=== PATIENT | male | born 1960 | race Caucasian/White ===

== ENCOUNTER 2020-03-08 06:55 | Outpatient (NON) | payer OTHER, SELFPAY ==
[2020-03-09 00:37] LABS: SARS-CoV-2 RNA PCR Negative
== END 2020-03-08 06:56 ==
PROVIDERS: PCP Emergency Medicine; Visit Provider Emergency Medicine
DX: R68.89 Other general symptoms and signs (principal); Z20.828 Contact with and (suspected) exposure to other viral communicable diseases
CPT/HCPCS: 87635; C9803; U0003

== ENCOUNTER 2023-11-20 16:02 | Inpatient (IN) | payer OTHER, SELFPAY ==
[2023-11-20] VITALS (11 sets, daily range): BP systolic 88–130; BP diastolic 53–96; PULSE 77–93; RESP 15–27; TEMP 36.3–36.5; O2SAT 96–100; BMI 26.4
--- NOTE | ~2023-11-20 | CT_ITS ---
EXAMINATION: CT abdomen pelvis wo con DATE: 11/20/2023 17:53 INDICATION: Abdominal pain TECHNIQUE: Computed tomography (CT) of the abdomen and pelvis was performed without intravenous contr ast. Automated exposure control and iterative reconstruction technique were employed. The dose-length product was 870.52 mGy-cm. COMPARISON: None FINDINGS: Moderate emphysema and mild atelectasis in the visualized lower lungs. Heart size is normal. Atherosc lerotic coronary artery calcification. No pericardial or pleural effusion. Nasogastric tube tip in pr oximal side port in the body the stomach. Small sliding-type hiatal hernia. 2.3 cm cyst at the dome o f the liver. Single hepatic calcific location and multiple splenic calcific lesions consistent with o ld granulomatous disease. Gallbladder, pancreas and bilateral adrenal glands are normal. Status post prostatectomy and cystectomy with ileal conduit formation extending to the right abdomen slightly cep halad to the umbilicus. There is fluid in the ileal conduit as well as mild bilateral hydroureterone phrosis. Deep to the umbilicus is a small bowel anastomosis likely representing the ileal conduit delmy vest site. There are air-fluid levels scattered throughout the small bowel without sonia dilation or discrete transition point to suggest obstruction. There is some wall thickening along the sigmoid: Co nsistent with colitis. Moderate amount of ascites scattered throughout the abdomen and pelvis. There is stranding throughout the greater omentum without definitive nodularity. No abscess or free intrape ritoneal gas. There is calcified atherosclerosis of the aorta and many of the other arteries. No path ologically enlarged abdominal or pelvic lymphadenopathy. Moderate lumbar and lower thoracic spondylos is. Chronic superior endplate compression fracture at T12. IMPRESSION: 1. Moderate amount of ascites scattered throughout the abdomen and pelvis with nonspecific stranding at the greater omentum without discrete nodularity. Recommend diagnostic paracentesis. 2. Postoperative change of prior prostatectomy, cystectomy and right abdominal ileocolic conduit form ation with associated mild bilateral hydroureteronephrosis. 3. Wall thickening at the sigmoid colon which could be related to colitis either infectious, inflamma tory or ischemic in etiology or other generalized edema forming state. 4. Moderate emphysema at the bilateral lung bases. Reviewed, dictated and finalized at location A. IMPRESSION: 1. Moderate amount of ascites scattered throughout the abdomen and pelvis with nonspecific stranding at the greater omentum without discrete nodularity. Recom mend diagnostic paracentesis. 2. Postoperative change of prior prostatectomy, cystectomy and right abdominal ileocolic conduit formation with associated mild bilateral hydroureteronephrosi s. 3. Wall thickening at the sigmoid colon which could be related to colitis eithe r infectious, inflammatory or ischemic in etiology or other generalized edema f orming state. 4. Moderate emphysema at the bilateral lung bases.
--- NOTE | ~2023-11-20 | XR_ITS ---
EXAMINATION: XR abdomen gastric tube insert DATE: 11/20/2023 16:39 INDICATION: Nasogastric tube placement TECHNIQUE: A supine view of the abdomen and lower chest was obtained for evaluation of feeding tube placement. COMPARISON: None. FINDINGS: Nasogastric tube tip in proximal side port in the body the stomach. No dilated gas-filled loops of fidel wel to suggest obstruction. No dilated loops of gas-filled bowel in the visualized upper abdomen. Aye ear discoid atelectasis at the bilateral lung bases. Heart size is normal. IMPRESSION: 1. Nasogastric tube in the stomach. Reviewed, dictated and finalized at location A.
--- NOTE | ~2023-11-20 | US_ITS ---
EXAMINATION: US paracentesis abd w/image DATE: 11/21/2023 09:52 INDICATION: Ascites. TECHNIQUE: The procedure and its risks, benefits, and alternatives were discussed with the patient. P otential risks discussed included bleeding and infection. The skin was prepped and draped in sterile fashion. 1% lidocaine was used for local anesthesia. Under ultrasound guidance, a 5 Fr catheter with trochar was advanced into the ascites in the left lower quadrant. Fluid was aspirated. The catheter w as removed, and a dressing was applied. There were no immediate complications. FINDINGS: Ultrasound images demonstrate ascites and the catheter within the fluid. Septations are noted in the fluid. IMPRESSION: 1. Successful ultrasound-guided paracentesis yielding 550 mL of yellow fluid. Reviewed, dictated and finalized at location A.
--- NOTE | 2023-11-20 16:15 | ECG_ITS ---
Test Date: 2023-11-20 16:15:00 Measurements Intervals [place] Rate: 81 P: 74 NC: 153 QRS: 72 QRSD: 89 T: 71 QT: 379 QTc: 441 Interpretive Statements SINUS RHYTHM NORMAL ECG No previous ECG available for comparison Electronically Signed On 11-21-2023 15:06:05 CDT by Javon Moreno M.D.
[2023-11-20] MEDS: PANTOPRAZOLE SODIUM IV 40 MG VIAL IV PUSH ×2 (16:24→22:11)
[2023-11-20] MEDS: ONDANSETRON INJ 4 MG/2 ML VIAL IV PUSH (16:24)
[2023-11-20] MEDS: SODIUM CHLORIDE 0.9% IV 1,000 ML 999 ML IV CONT (16:25)
[2023-11-20 16:38] LABS: Hematocrit 48.4 % (42.0-52.0); Hemoglobin 16.6 g/dL (14.0-18.0); Mean Corpuscular HGB Conc 34.3 g/dl (32-36); Mean Corpuscular Hemoglobin 28.6 pg (26-34); Mean Corpuscular Volume 83.4 fl (80-100); Mean Platelet Volume 12.2 fl (7.4-10.4); Platelet Count Result 332 k/mm3 (150-375); Red Cell Distribution Width 14.2 % (11.5-14.5); White Blood Count 25.6 K/mm3 (4.5-10.0)
--- NOTE | 2023-11-20 16:48 | ED.NAVMDI ---
HPI - Nausea/Vomiting/Diarrhea General Chief complaint: Nausea/Vomiting/Diarrhea Stated complaint: emesis with bleeding Time Seen by Provider: 11/20/23 16:11 History of Present Illness HPI Narrative: Patient is a 62-year-old male who presents ER with vomiting and loose stools. Patient is unsure how long it has been going on but reports vomiting today that may have had blood in it. He was recently seen at [facility] for an unknown issue, he believes it was dehydration and when he is discharged he was given Flexeril and Augmentin. Denies fevers or chills. No abdominal pain at this time. Patient does have dry blood around the mouth. Related Data Allergies Allergy/AdvReac Type Severity Reaction Status Date / Time No Known Allergies Allergy Uncoded 03/20/19 08:01 Review of Systems Review of Systems: All systems reviewed & are unremarkable except as noted in HPI and below Constitutional: Constitutional: Reports no additional constitutional complaints ENT: Reports system reviewed and no additional complaints, except as documented Cardiovascular: Cardiovascular: Reports no additional cardiovascular complaints Respiratory: Respiratory: Reports no additional respiratory complaints Gastrointestinal: Gastrointestinal: Denies abdominal pain, Denies diarrhea, Reports nausea and Reports vomiting Genitourinary: Genitourinary: Reports no additional male genitourinary complaints PMFSH Past Medical History Medical History (Updated 11/20/23 @ 18:56 by Ezekiel Baez MD) Bladder cancer COPD (chronic obstructive pulmonary disease) Hepatitis C Surgical History Surgical History (Updated 11/20/23 @ 17:24 by Ezekiel Baez MD) History of total cystectomy History of urostomy Family History Family History (Updated 02/12/19 @ 11:26 by DOCTOR UNKNOWN) Sibling Family history of malignant neoplasm Other Diabetes mellitus Family history of cardiovascular disease Social History Social History Smoking status: Current every day smoker Alcohol intake: never Exam Narrative: GENERAL: chronically ill-appearing, well-nourished, and in no acute distress. HEAD: Normocephalic, atraumatic. ENT: dry mucous membranes, blood dried to the cheeks bilaterally. NECK: Supple. CHEST: Clear to auscultation. No respiratory distress. HEART: Regular rate and rhythm. Normal peripheral pulses. ABDOMEN: Soft, nontender, nondistended, Hemoccult-positive stool. EXTREMITIES: Normal range of motion. No edema. SKIN: Warm, dry, no rash. NEURO: Alert and oriented x3. PSYCH: Normal mood and affect. Course Course Emergency Course: Patient with signs of sepsis. Patient received 30 milliliter/kilogram bolus. He has had adequate response with improvement of blood pressure. Nephrology consulted in regards to hyperkalemia and acute kidney injury. They have asked that some random urine studies be added on. Furthermore I have treated the patient's hyperkalemia with calcium gluconate, insulin, D50, and IV fluid. Patient be started on Zosyn for possible colitis seen on CT scan. I have also placed orders for diagnostic paracentesis since patient has significant ascites. Patient accepted by the hospitalist service. Vital Signs Vital signs: Vital Signs Temperature 97.7 F 11/20/23 16:15 Pulse Rate 82 11/20/23 16:15 Respiratory Rate 18 11/20/23 16:15 Blood Pressure 97/75 L 11/20/23 16:15 Pulse Oximetry 97 11/20/23 16:15 Oxygen Delivery Room Air 11/20/23 16:15 Temperature 97.7 F 11/20/23 16:15 Pulse Rate 82 11/20/23 18:24 Respiratory Rate 21 H 11/20/23 18:24 Blood Pressure 102/71 11/20/23 18:24 Pulse Oximetry 100 11/20/23 18:24 Oxygen Delivery Room Air 11/20/23 16:15 MDM - Nausea/Vomiting/Diarrhea Lab Data 11/20/23 16:30 11/20/23 16:29 Labs: Lab Results 11/20/23 11/20/23 Range/Units 16:29 16:30 WBC 25.6 H (4.5-10.0) K/mm3 RB
[2023-11-20 16:50] LABS: INR 1.3; Partial Thromboplastin Time 27.3 Seconds (22.3-36.8); Prothrombin Time 16.5 Seconds (11.1-14.7)
[2023-11-20 16:53] LABS: Lactic Acid Reflex 3.7 mmol/L (0.7-2.0)
[2023-11-20 16:54] LABS: Alanine Aminotransferase 32 U/L (6-50); Albumin Level 3.5 g/dL (3.5-5.1); Alkaline Phosphatase 104 U/L (38-126); Anion Gap 19 mmol/L (4-12); Aspartate Amino Transferase 38 U/L (17-59); Bilirubin,Total 3.5 mg/dL (0.2-1.3); Calcium 8.8 mg/dL (8.4-10.2); Carbon Dioxide 12 mmol/L (22-30); Chloride 101 mmol/L (98-107); Estimated CRCL calculation 14 ml/min; Estimated Glomerular Filt Rate 11; Glucose 143 mg/dL (65-110); Sodium 132 mmol/L (137-145)
[2023-11-20 17:01] LABS: Blood Urea Nitrogen 160 mg/dL (9-20)
[2023-11-20 17:04] LABS: Eosinophils Absolute Manual 0.25 K/mm3 (0.02-0.50); Eosinophils Percent Manual 1 % (0-4); Lymphocytes Absolute Manual 1.02 K/mm3 (1.1-4.5); Monocytes Absolute Manual 2.04 K/mm3 (0.1-0.90); Monocytes Percent Manual 8 % (3-9); Neutrophils Percent Manual 87 % (46-73); Total Cells Counted 100
[2023-11-20 17:05] LABS: Platelet Estimate Adequate (Adequate); Schistocytes None Seen
[2023-11-20] MEDS: INSULIN HUMAN REGULAR (*BKC) 100 UNITS/ML IV PUSH (17:21)
[2023-11-20] MEDS: DEXTROSE 50% 25 GM/50 ML SYRINGE IV PUSH (17:22)
[2023-11-20] MEDS: CALCIUM GLUCONATE 1,000 MG/10 ML VIAL 1000 MG IV PUSH (17:25)
[2023-11-20] MEDS: SODIUM CHLORIDE 0.9% IV 2,400 ML/1,000 ML BAG 999 ML IV CONT ×2 (17:26→18:21)
--- NOTE | 2023-11-20 18:11 | PC.NURSE ---
BG was 137 at this time
[2023-11-20] MEDS: PIPERACILLIN/TAZ 2.25G/NS 50ML 2.25 GM/50 ML BAG IVPB (18:52)
--- NOTE | 2023-11-20 18:54 | ECG_ITS ---
Test Date: 2023-11-20 19:56:49 Measurements Intervals [place] Rate: 79 P: 70 HI: 153 QRS: 74 QRSD: 86 T: 54 QT: 391 QTc: 450 Interpretive Statements SINUS RHYTHM NONSPECIFIC T-WAVE ABNORMALITY. ABNORMAL ECG Compared to ECG 11/20/2023 16:15:00 No significant changes Electronically Signed On 11-21-2023 15:08:32 CDT by Javon Moreno M.D.
[2023-11-20 18:56] LABS: Glucose Point of Care 137 mg/dl (65-105)
[2023-11-20 19:29] LABS: Anion Gap 14 mmol/L (4-12); Calcium 7.6 mg/dL (8.4-10.2); Carbon Dioxide 11 mmol/L (22-30); Chloride 111 mmol/L (98-107); Estimated CRCL calculation 17 ml/min; Estimated Glomerular Filt Rate 14; Glucose 74 mg/dL (65-110); Potassium 5.6 mmol/L (3.4-5.0); Sodium 136 mmol/L (137-145)
[2023-11-20 19:30] LABS: Appearance Urine Turbid (Clear); Bacteria Urine None Seen /hpf; Bilirubin Urine Negative (Negative); Blood Urine 3+ (Negative); Color Urine Dark Yellow (Yellow); Glucose Urine UA Negative (Negative); Ketones Urine Negative (Negative); Leukocyte Esterase Ur 3+ LEU/UL (Negative); Need Manual Microscopic Reviewed; Nitrate Urine Negative (Negative); Protein Urine 1+ mg/dL (Negative); RBC Urine >100 /hpf (0-2); Specific Grav Ur 1.019 (1.001-1.035); Squamous Epithelial Cell Urine None Seen /hpf (Few); WBC Urine 51-100 /hpf (0-3); pH Urine 5.5 (5.0-9.0)
[2023-11-20 19:31] LABS: Add Urine Microscopic? YES
[2023-11-20 19:36] LABS: Reflex Lactic Acid Yes or No Add Lactic
[2023-11-20 19:40] LABS: Blood Urea Nitrogen 145 mg/dL (9-20)
[2023-11-20 20:00] LABS: Creatinine Urine 68.5 mg/dL; Urea Random Urine 1039 MG/DL
[2023-11-20 20:02] LABS: Sodium Urine Random 41 meq/L
[2023-11-20] MEDS: SODIUM BICARBONATE 8.4% 50 MEQ/50 ML SYRINGE IV PUSH (20:23)
[2023-11-20 20:35] LABS: Lactic Acid 2.3 mmol/L (0.7-2.0)
--- NOTE | 2023-11-20 20:56 | ADMGEN ---
This patient, Patsy Thompson, was admitted to IMU Room 205-. Patient/family oriented to hospital policies and general routines including ID bracelet, bed and alarms, visiting hours, pain management, procedures, bathroom and other care routines, personal items, smoking policy, room service/diet, and visiting hours. Information on how to activate the Rapid Response Team has been discussed. Patient/Family are encouraged to report perceived risks to care and to ask questions if they do not understand what they are told or what they should do. Pt arrived to the floor at 2039.
[2023-11-20 21:00] LABS: Procalcitonin 4.9 ng/mL
[2023-11-20] MEDS: HYDROcodone/acetaminophen (*CRX) 5-325 MG TABLET 1 TAB PO (22:10)
[2023-11-20] MEDS: SODIUM BICARBONATE 8.4% 100 MEQ in WATER, STERILE FOR INJECTION 1,000 ML IV CONT (22:11)
--- NOTE | 2023-11-20 22:30 | PM.IMHP ---
H&P: HPI History of Present Illness Date/Time: 11/20/23 22:30 Chief Complaint: Nausea, vomiting and abdominal pain Narrative: 62-year-old male with a past medical history of COPD, essential hypertension, hepatitis C, bladder cancer status post cystectomy with urostomy who presented to the ER via EMS with hypotension, nausea, vomiting and abdominal pain and distension. The patient himself would only wake up to answer questions 1 word at a time. He was intermittently slurring his words. I could not get the patient to stay awake long enough to give any significant review of systems. The patient did arouse from sleep when I was palpating his right lower quadrant to give me an irritated look. Subsequently, majority HPI was obtained from ER records and limited past medical records that are available. The patient had reportedly been having vomiting and loose stools at home. Is unclear how long symptoms had been ongoing. It was unclear whether not there may have been blood in the emesis so ER placed in NG in flushed the gastric contents which demonstrated brown yellowish water that cleared at the end of suctioning. Contents were not coffee-ground in appearance and no overt blood. However Hemoccult of stool per rectum exam was positive. Nursing staff reports to me that the patient used to drink 25-30 beers every other day and would drink until he would pass out. However the patient reportedly quit drinking 15 years ago. I could not get the patient to wake up enough to verify this. The patient evidently lives at home with his significant other who is bedbound. 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 The patient and his significant other smoke daily. The patient is audibly wheezing on exam for him mildly tachypneic but is in no respiratory distress. Pulse oximetry on vitals normal. On initial presentation the ER patient was mildly hypotensive with pressures of 88/66. Hypotension resolved after 30 mL/kilos fluid bolus. He was afebrile but had a white count of 25.6. Electrolyte panel demonstrated marked hyperkalemia with presumed acute kidney injury with a creatinine of 5.5 and a serum bicarb of 12. He received insulin, calcium, dextrose. His repeat potassium improved to 5.6 but serum bicarb was still low at 11. CT scan of the abdomen performed without contrast demonstrated moderate ascites with nonspecific stranding of the greater omentum without discrete nodularity, postoperative changes of prior prostatectomy, cystectomy and right abdominal ileal colic conduit with mild bilateral hydronephrosis. Wall thickening of the sigmoid colon which could be related to colitis either infectious inflammatory or ischemic in etiology or due to his general edema forming state. Also moderate emphysema noted. Patient was started on Zosyn to treat for possible colitis and admitted to the IMU. On review of the patient's external med history the patient has been on Augmentin and inhaler since the . I am assuming that this is due to a respiratory infection or symptoms with patient is unable to confirm this. Review of Systems Review of Systems: ROS unobtainable: Yes unobtainable due to mental status PMFSH Past Medical History Medical History Bladder cancer COPD (chronic obstructive pulmonary disease) Hepatitis C Surgical History Surgical History History of total cystectomy History of urostomy Family History Family History Sibling Family history of malignant neoplasm Colorectal cancer Diabetes mellitus Family history of cardiovascular disease Father Cirrhosis of liver PVD (peripheral vascular disease) Mother Breast cancer Social History Social History (Updated 11/21/23 @ 02:05 by Kiana Rasmussen DO) Social History: The patient lives with his significant other/long-t
[2023-11-21] VITALS (9 sets, daily range): BP systolic 93–106; BP diastolic 52–70; PULSE 80–91; RESP 16–24; TEMP 36.1–36.3; O2SAT 96–100; BMI 26.4
[2023-11-21] MEDS: LACTATED RINGERS 1,000 ML 999 ML IV CONT (00:55)
[2023-11-21 01:47] LABS: Ethanol < 10 mg/dL (<10); Lactic Acid Reflex 2.2 mmol/L (0.7-2.0)
[2023-11-21 01:47] LABS: Ammonia < 9 umol/L (9-30)
[2023-11-21 05:12] LABS: Basophils Absolute Auto 0.1 K/mm3 (0.0-0.1); Basophils Percent Auto 0.4 % (0.2-1.2); Hemoglobin 14.5 g/dL (14.0-18.0); Immature Granulocyte Absolute 0.15 K/mm3 (0.00-0.031); Immature Granulocyte Percent A 0.7 % (0-0.5); Lymphocytes Absolute Auto 1.44 K/mm3 (0.9-3.2); Lymphocytes Percent Auto 6.6 % (18.3-44.2); Mean Corpuscular HGB Conc 33.7 g/dl (32-36); Mean Corpuscular Hemoglobin 28.4 pg (26-34); Mean Corpuscular Volume 84.1 fl (80-100); Mean Platelet Volume 11.8 fl (7.4-10.4); Monocytes Absolute Auto 1.7 K/mm3 (0.1-0.6); Monocytes Percent Auto 7.7 % (2.6-8.5); Neutrophils Absolute Auto 18.6 K/mm3 (1.3-6.7); Neutrophils Percent Auto 84.6 % (45.5-73.1); Platelet Count Result 283 k/mm3 (150-375); Red Blood Count 5.11 M/mm3 (4.6-6.20); Red Cell Distribution Width 13.9 % (11.5-14.5)
[2023-11-21 05:37] LABS: Platelet Estimate Adequate (Adequate)
[2023-11-21 05:38] LABS: Anisocytosis 1+; Burr Cells 1+; Ovalocytes 1+; Schistocytes None Seen
[2023-11-21 05:51] LABS: Alanine Aminotransferase 23 U/L (6-50); Albumin Level 2.8 g/dL (3.5-5.1); Alkaline Phosphatase 86 U/L (38-126); Anion Gap 14 mmol/L (4-12); Aspartate Amino Transferase 29 U/L (17-59); Bilirubin,Total 3.4 mg/dL (0.2-1.3); Carbon Dioxide 15 mmol/L (22-30); Chloride 104 mmol/L (98-107); Estimated CRCL calculation 16 ml/min; Estimated Glomerular Filt Rate 14; Glucose 89 mg/dL (65-110); Potassium 5.3 mmol/L (3.4-5.0); Sodium 133 mmol/L (137-145)
[2023-11-21] MEDS: PIPERACILLIN/TAZ 2.25G/NS 50ML 2.25 GM/50 ML BAG IVPB ×2 (05:55→12:35)
[2023-11-21 06:26] LABS: Folic Acid 4.8 ng/mL (2.76->20)
[2023-11-21 06:48] LABS: Amphetamine Screen Urine Negative (Negative); Barbiturate Screen Urine Negative (Negative); Benzodiazepines Screen Urine Negative (Negative); Cannabinoid Screen Urine Negative (Negative); Cocaine Screen Urine Negative (Negative); Methadone Screen Urine Negative (Negative); Opiate Screen Urine Positive (Negative); Phencyclidine Screen Urine Negative (Negative)
[2023-11-21 07:00] LABS: Toxigenic C. Diff NEGATIVE (NEGATIVE)
--- NOTE | 2023-11-21 08:40 | PM.CNNEP ---
Assessment and Plan Assessment and plan (1) DELISA (acute kidney injury): Code(s): N17.9 - Acute kidney failure, unspecified Status: Acute Assessment and Plan: The patient has a acute kidney injury. He went to the ER 8 days ago and was told that his labs were all okay so I am assuming this all happened since 8 days ago. The patient has been out in the heat and has not been eating and drinking so he is at least dehydrated. This of course could lead to renal failure. Patient also had low blood pressure in the emergency room and has elevated lactate/WBC with belly pain and so probably has some sort of abdominal sepsis which also could contribute to the elevated creatinine. Patient has ostomies and his CT scan did show mild hydro but this is normal with the urostomy so I do not think he is obstructed. He could have rhabdomyolysis as well. So will check a CPK Patient said he had dark purple urine. I am not sure what this means. His urinalysis does show protein and some blood on the dipstick along with lots of white cells. He could have chronic pyuria from his urostomy. I suppose it is possible that he might have some sort of a GN causing his renal failure, however he does not have any of the extra renal manifestations of a GN and also his kidney function is improving with fluid so I think this is less likely. Will get serology just in case however. Other causes of renal failure include interstitial nephritis and vascular disease which are less likely. Will check a CPK. (2) Acute hyperkalemia: Code(s): E87.5 - Hyperkalemia Status: Acute Assessment and Plan: The patient's potassium was high. It is better now. This is most likely due to the renal failure plus the acidosis. (3) Colitis: Code(s): K52.9 - Noninfective gastroenteritis and colitis, unspecified Status: Acute Assessment and Plan: Patient has thickened sigmoid colon. Colitis may be causing his abdominal pain plus the ascites. (4) Ascites: Code(s): R18.8 - Other ascites Status: Acute Assessment and Plan: The patient has ascites which may be due to his colitis I suppose. He could also have cirrhosis on his hepatitis C leading to the ascites. (5) Sepsis: Qualifiers: Acute renal failure type: unspecified Sepsis acute organ dysfunction status: with acute organ dysfunction Sepsis type: sepsis due to unspecified organism Severe sepsis acute organ dysfunction type: acute renal failure Severe sepsis shock status: without septic shock Qualified Code(s): A41.9 - Sepsis, unspecified organism; R65.20 - Severe sepsis without septic shock; N17.9 - Acute kidney failure, unspecified Code(s): A41.9 - Sepsis, unspecified organism Status: Acute Assessment and Plan: The patient has colitis which could be the source. He also has pyuria which could be the source. In addition he may have spontaneous bacterial peritonitis. He is going to get a tap today. Urine cultures and blood cultures have been performed. Patient is getting treatment with vancomycin. (6) Metabolic acidosis: Code(s): E87.20 - Acidosis, unspecified Status: Acute Assessment and Plan: Bicarbonate level is low. Anion gap is a little bit high. He had an anion gap of 10 a few years ago so this may be his baseline. The delta anion gap is only 4 but the delta bicarb is around 13 so some of this is due to the lactate, some is due to uremic toxins, but most is due to type 4 RTA from renal failure. He is getting some bicarbonate now. History of Present Illness Reason for Consult Consult date: 11/21/23 Chief Complaint Chief complaint: Sepsis,Colitis,DELISA,Hyperkalemia,Uremia History of Present Illness Narrative: Patsy is a very pleasant 62-year-old gentleman who has multiple medical problems including COPD, current tobacco use of 1 pack per day, hypertension, hepatitis-C, bladder cancer status post cystectomy wi
[2023-11-21 10:06] LABS: Creatine Kinase 50 U/L (55-170)
[2023-11-21 10:14] LABS: Complement C3 94 mg/dL (88-165)
[2023-11-21 10:22] LABS: Erythrocyte Sedimentation Rate 16 mm/hr (0-20)
[2023-11-21] MEDS: SODIUM BICARBONATE 8.4% 100 MEQ in WATER, STERILE FOR INJECTION 1,000 ML 125 MEQ IV CONT (10:59)
[2023-11-21] MEDS: PANTOPRAZOLE SODIUM IV 40 MG VIAL IV PUSH (10:59)
[2023-11-21] MEDS: FOLIC ACID 1 MG/0.2 ML INJ IV PUSH (10:59)
[2023-11-21] MEDS: THIAMINE HCL 200 MG/2 ML VIAL 100 MG IV PUSH (10:59)
[2023-11-21 11:11] LABS: Hepatitis C Virus Antibody Reactive (Negative)
[2023-11-21 11:19] LABS: Appearance Peritoneal Fluid Cloudy (Clear); Color Peritoneal Fluid Yellow (Colorless); Source Peritoneal Fluid Peritoneal Fluid
[2023-11-21 11:22] LABS: Nucleated Cells Peritoneal Flu 2686 /uL (0-500)
[2023-11-21 11:23] LABS: Lymphocytes Peritoneal Fluid 3 %; Neutrophils Peritoneal Fluid 90 % (0-25); RBC Peritoneal Fluid 2000 /uL (0-10000)
[2023-11-21 11:25] LABS: Macrophages Peritoneal Fluid 7 %
[2023-11-21 12:02] LABS: Blood Urea Nitrogen 145 mg/dL (9-20)
--- NOTE | 2023-11-21 13:11 | PC.NURSE ---
Pt states he cannot stay at the hospital. He has a sick family member he needs to take care of. The risks of leaving against medical advice were explained to him, including worsening symptoms and . Provider Vicente Haynes [employer] TECHNICIAN explained
--- NOTE | 2023-11-21 14:33 | PM.DS ---
DS: Admitting Diagnosis Discharge Date 11/21/23 Admitting Diagnosis Septic colitis DELISA acute hypokalemia DS: Discharge Diagnosis Discharge Diagnosis (1) Colitis: Code(s): K52.9 - Noninfective gastroenteritis and colitis, unspecified Status: Acute (2) Acute hyperkalemia: Code(s): E87.5 - Hyperkalemia Status: Acute (3) DELISA (acute kidney injury): Code(s): N17.9 - Acute kidney failure, unspecified Status: Acute (4) Sepsis: Qualifiers: Acute renal failure type: unspecified Sepsis acute organ dysfunction status: with acute organ dysfunction Sepsis type: sepsis due to unspecified organism Severe sepsis acute organ dysfunction type: acute renal failure Severe sepsis shock status: without septic shock Qualified Code(s): A41.9 - Sepsis, unspecified organism; R65.20 - Severe sepsis without septic shock; N17.9 - Acute kidney failure, unspecified Code(s): A41.9 - Sepsis, unspecified organism Status: Acute (5) Encephalopathy acute: Code(s): G93.40 - Encephalopathy, unspecified Status: Acute (6) Heme positive stool: Code(s): R19.5 - Other fecal abnormalities Status: Acute (7) Ascites: Code(s): R18.8 - Other ascites Status: Acute Plan Patient meets sepsis criteria with tachycardia, leukocytosis, lactic acidosis and hypotension. Hypotension resolved after adequate IV fluid resuscitation. Patient still has persistent lactic acidosis but this could in part be due to underlying hepatitis C, distant history of alcohol abuse with possible underlying cirrhosis. Patient was placed on antibiotic therapy with Zosyn empirically. Will check stool for C diff given patient has been on outpatient antibiotics with Augmentin since the . His urine is also possibly suspicious for UTI with 3+ esterase greater than 100 RBCs and 51-100 wbc's but no bacteria seen. Blood cultures and urine cultures are pending. The patient received 30 mL/kilos fluid resuscitation in the ER with improvement in his creatinine down to 4.4 and improvement in his potassium. He still has metabolic acidosis due to his acute renal failure and I have started the patient on a bicarb drip. I will give the patient 1 more L of LR as blood pressures are still soft with systolics in the low 90s. Will repeat lactic acid level. Patient is encephalopathic likely due to underlying sepsis but given history of alcoholism, hepatitis-C and evidence of ascites there may be a component of cirrhosis. Will check ammonia to rule out hepatic encephalopathy. IR consult has been placed for therapeutic and diagnostic paracentesis. Given the patient does have some abdominal pain there may be a component of SBP is well. Will send ascitic fluid for culture and cell count as well. Patient has acute kidney injury has improved with fluid resuscitation. Nephrology has consulted. Patient received bicarb push and I place patient on bicarb drip. Will place patient on a low-potassium diet. Patient did have heme-positive stools in the ER. However, NG demonstrate no evidence of upper GI bleed. Will place patient on Protonix. Patient's hemoglobin is upper limit of normal. No evidence of overt bleed. If hemoglobin drops her evidence of acute bleed develops will consult GI at that time. Repeat CBC and electrolyte panel been ordered for a.m.. Encephalopathy assumed to be due to sepsis but encephalopathy due to alcohol or drugs is not ruled out. Will check urine drug screen and alcohol level. Also check B12 and folic acid level with a.m. labs Patient has been admitted as observation status. Patient did undergo a paracentesis the drain a 550 mL. Labs are pending. DS: Summary Hospital Course Hospital Course: Patient is 62-year-old male with past medical history of COPD, essential hypertension, hepatitis-C, bladder cancer who presented to the ED with complaints of hypotension, nausea, vomiting, abdominal pain
[2023-11-22 07:05] LABS: Total Protein Urine Random 27 mg/dL; Ur Ttl Prot Creatinine Ratio 0.43 mg/mg (0-0.20)
[2023-11-22 11:28] LABS: Lambda Light Chain 42.3 mg/L (5.7-26.3)
[2023-11-24 12:08] LABS: Albumin Peritoneal Fluid 0.4 g/dL; Amylase Peritoneal Fluid 44 U/L; Glucose Peritoneal Fluid 58 mg/dL; Total Protein Peritoneal Fluid <3.0 g/dL
[2023-11-24 18:52] LABS: Immunofixation, Serum Normal pattern.
[2023-11-25 14:53] LABS: Hepatitis C RNA, Quant PCR 802000 IU/mL (NOT DETECTED)
[2023-11-26 13:58] LABS: ANCA Screen NEGATIVE (NEGATIVE)
[2023-11-27 14:34] LABS: Anti Glomerular Basement Memb <1.0 AI
[2023-11-27 15:08] LABS: LDH Peritoneal Fluid 135 U/L (<63)
== END 2023-11-21 13:50 | disposition left against medical advice (07) | DRG 720 ==
LOC: ANHED 18:56 → ANHIMU 20:33
PROVIDERS: Internal Medicine; Internal Medicine Nephrology; Student in an Organized Health Care Education/Training Program; Admitting Provider Internal Medicine; Emergency Provider Emergency Medicine; PCP Internal Medicine Gastroenterology; Visit Provider Nurse Practitioner
DX: A41.9 Sepsis, unspecified organism (principal); R65.20 Severe sepsis without septic shock; R18.8 Other ascites; E87.20 Acidosis, unspecified; N17.9 Acute kidney failure, unspecified; F10.20 Alcohol dependence, uncomplicated; B19.20 Unspecified viral hepatitis C without hepatic coma; K92.1 Melena; K52.9 Noninfective gastroenteritis and colitis, unspecified; E87.5 Hyperkalemia; Z85.51 Personal history of malignant neoplasm of bladder; J44.9 Chronic obstructive pulmonary disease, unspecified; Z93.6 Other artificial openings of urinary tract status; Z90.6 Acquired absence of other parts of urinary tract; F17.210 Nicotine dependence, cigarettes, uncomplicated; Z90.79 Acquired absence of other genital organ(s); J43.9 Emphysema, unspecified; N39.0 Urinary tract infection, site not specified; E86.0 Dehydration; G93.41 Metabolic encephalopathy
CPT/HCPCS: 36415; 49083; 74176; 80048; 80053; 80307; 81001; 82042; 82140; 82150; 82533; 82550; 82570; 82607; 82746; 82945; 82948; 83520; 83605; 83615; 83883; 84145; 84156; 84157; 84300; 84540; 85025; 85610; 85652; 85730; 86036; 86038; 86039; 86160; 86162; 86225; 86334; 86803; 86850; 86900; 86901; 87040; 87070; 87075; 87077; 87086; 87088; 87106; 87186; 87205; 87493; 87522; 88108; 88305; 89051; 93005; 96361; 96365; 96366; 96367; 96368; 96375; 96376; 99285; A9270; C9113; G0378; G0379; J0612; J1815; J2405; J2543; J3411; J7030; J7120

== ENCOUNTER 2023-11-21 22:59 | Inpatient (IN) | payer OTHER, SELFPAY ==
--- NOTE | ~2023-11-21 | US_ITS ---
US abdomen complete DATE: 11/23/2023 07:52 INDICATION: Ascites TECHNIQUE: Real-time imaging and Doppler analysis of the abdomen COMPARISON: 11/20/2023 CT abdomen pelvis FINDINGS: Multilocular prominent ascites. Approximately 2.2 cm hepatic dome cyst. Normal hepatopedal portal venous flow direction. The pancreas is largely obscured. Splenic size is within normal limits. There is sludge in the gallbladder. No gallstones or gallbladder wall thickening are noted. The common bile duct measures 5 mm, normal. Moderate bilateral hydronephrosis. Normal caliber of the abdominal aorta. Inferior vena cava appears unremarkable. IMPRESSION: Multilocular prominent ascites Hepatic cyst Gallbladder sludge Moderately prominent bilateral hydronephrosis Reviewed, dictated and finalized at [facility]. Reviewed, dictated and finalized at location A.
--- NOTE | ~2023-11-21 | CT_ITS ---
EXAMINATION: CT guide nephro tube pl RT DATE: 11/27/2023 12:07 INDICATION: Right hydronephrosis. Right ureteral-ileal anastomotic leak. TECHNIQUE: The procedure including the risks, benefits, and alternatives was discussed with the patie nt. Risks discussed included bleeding and infection. The patient understood the risks and benefits an d agreed to proceed. The skin overlying the right kidney was prepped and draped in usual sterile fas hion. Anesthetic was administered with 1% lidocaine subcutaneously. An 18 gauge trochar needle was i nserted into a calyx of the kidney under CT guidance. The needle was exchanged over a wire for 5 Fren ch and 7 Macedonian and 9 Macedonian dilators and then for an 8.5 Macedonian pigtail catheter under CT guidance. The catheter was stitched to the skin. A dressing was applied. The mA was adjusted according to patie nt size. Iterative reconstruction technique was employed. The dose-length product was 176.00 mGy-cm. There were no immediate complications. FINDINGS: CT images demonstrate the nephrostomy tube in the renal pelvis. There is a large volume of ascites in right abdomen. IMPRESSION: 1. Successful CT-guided right nephrostomy tube placement. 2. Large volume of ascites. Consider therapeutic paracentesis. Reviewed, dictated and finalized at location A.
--- NOTE | ~2023-11-21 | CT_ITS ---
EXAMINATION: CT guide absc cath placement DATE: 11/28/2023 14:24 INDICATION: Urinoma. TECHNIQUE: The procedure including the risks, benefits, and alternatives was discussed with the patie nt. Risks discussed included bleeding and infection. The patient understood the risks and benefits an d agreed to proceed. The skin overlying the right abdomen was prepped and draped in usual sterile fas hion. Anesthetic was administered with 1% lidocaine subcutaneously. An 18 gauge trochar needle was i nserted into the right abdominal urinoma with CT guidance. The needle was exchanged over a wire for 6 Iraqi and 8 Iraqi dilators and then for an 8.5 Iraqi pigtail catheter. The catheter was stitched to the skin, and a sterile dressing was applied. The mA was adjusted according to patient size. Itera tive reconstruction technique was employed. The dose-length product was 135.86 mGy-cm. There were no immediate complications. FINDINGS: CT images demonstrate the catheter within the right abdominal urinoma. IMPRESSION: 1. Successful CT-guided drainage of a large right abdominal urinoma. Reviewed, dictated and finalized at location A.
--- NOTE | ~2023-11-21 | XR_ITS ---
XR abdomen obstructive series Ordering provider: Frank Pederson MD History: . abd pain . Comparison: None. FINDINGS: BOWEL: Slightly dilated small bowel loops in the left side of the abdomen. No definite obstruction se en. Follow-up advised. No free air seen. ORGANOMEGALY: None. SIGNIFICANT PATHOLOGIC CALCIFICATIONS: None. Degenerative changes of the spine. IMPRESSION: Slightly dilated small bowel loop in the left side of the abdomen. No evidence of intestinal obstruc tion. Follow-up advised. Reviewed, dictated and finalized at location A. IMPRESSION: Slightly dilated small bowel loop in the left side of the abdomen. No evidence of intestinal obstruction. Follow-up advised.
--- NOTE | ~2023-11-21 | XR_ITS ---
EXAMINATION: XR loopogram retrograde urogra DATE: 11/26/2023 16:10 INDICATION: Urine in ascites. TECHNIQUE: I inserted a Lomax catheter into the ileal conduit and injected water-soluble contrast and performed fluoroscopy of the abdomen. Fluoroscopy exposure time was 0.9 minutes. The number of image s was 515. COMPARISON: CT abdomen and pelvis 11/20/2023 FINDINGS: There is leakage of contrast from the anastomosis of the right ureter with the ileal condui t. IMPRESSION: 1. Leakage of contrast from the anastomosis of the right ureter with the ileal conduit. Reviewed, dictated and finalized at location A.
--- NOTE | ~2023-11-21 | XR_ITS ---
EXAMINATION: XR chest 1V portable Exam Date/Time: 11/28/2023 17:50 CDT HISTORY: hypoxia Comparison: 11/21/2023. RESULT: Lines, tubes, and devices: None. Lungs and pleura: Increasing moderate diffuse reticular opacities. Emphysematous change. Cardiomediastinal silhouette: Stable. Granulomatous calcification. Other: No acute osseous or upper abdominal finding. IMPRESSION: Worsening interstitial pulmonary edema overlying chronic emphysematous changes. Reviewed, dictated and finalized at location K.
--- NOTE | ~2023-11-21 | US_ITS ---
EXAMINATION: US paracentesis abd w/image DATE: 11/27/2023 15:52 INDICATION: Ascites. TECHNIQUE: The procedure and its risks, benefits, and alternatives were discussed with the patient. P otential risks discussed included bleeding and infection. The skin was prepped and draped in sterile fashion. 1% lidocaine was used for local anesthesia. Under ultrasound guidance, a 5 Fr catheter with trochar was advanced into the ascites in the right lower quadrant. Fluid was aspirated. The catheter was removed, and a dressing was applied. There were no immediate complications. FINDINGS: Ultrasound images demonstrate ascites and the catheter within the fluid. IMPRESSION: 1. Successful ultrasound-guided paracentesis yielding 3200 mL of mica-colored fluid. Reviewed, dictated and finalized at location A.
--- NOTE | ~2023-11-21 | XR_ITS ---
EXAMINATION: XR chest 1V portable DATE: 11/21/2023 23:33 INDICATION: Generalized weakness TECHNIQUE: frontal view of the chest was obtained. COMPARISON: Chest radiograph dated 06/12/2017 FINDINGS: Emphysema with increased lucency and architectural distortion in the bilateral upper lung zones. Lung volumes appear slightly decreased relative to the prior study with increased interstitial pattern at the bilateral lower lung zones which could be due to atelectasis and bronchovascular crowding or mil d pulmonary edema. Heart size is normal. Calcified right hilar lymph nodes consistent with old granul omatous disease. IMPRESSION: 1. Emphysema with mild atelectasis versus mild pulmonary edema at the bilateral lung bases. Reviewed, dictated and finalized at location A.
--- NOTE | ~2023-11-21 | US_ITS ---
EXAMINATION: US paracentesis abd w/image DATE: 11/25/2023 15:43 INDICATION: Ascites. TECHNIQUE: The procedure and its risks, benefits, and alternatives were discussed with the patient. P otential risks discussed included bleeding and infection. The skin was prepped and draped in sterile fashion. 1% lidocaine was used for local anesthesia. Under ultrasound guidance, a 5 Fr catheter with trochar was advanced into the ascites in the right lower quadrant. Fluid was aspirated. The catheter was removed, and a dressing was applied. There were no immediate complications. FINDINGS: Ultrasound images demonstrate ascites and the catheter within the fluid. IMPRESSION: 1. Successful ultrasound-guided paracentesis yielding 3300 mL of mica-colored fluid. Reviewed, dictated and finalized at location A.
--- NOTE | 2023-11-21 23:00 | ECG_ITS ---
Test Date: 2023-11-21 23:21:40 Measurements Intervals [place] Rate: 76 P: 67 ID: [id number] QRS: 77 QRSD: 89 T: 75 QT: 407 QTc: 459 Interpretive Statements SINUS RHYTHM NONSPECIFIC T-WAVE ABNORMALITY ABNORMAL ECG Compared to ECG 11/20/2023 19:56:49 T-wave abnormality no longer present Electronically Signed On 11-22-2023 10:55:53 CDT by Javon Moreno M.D.
[2023-11-21 23:01] VITALS: BP 76/56; PULSE 78; RESP 16; TEMP 36.2; O2SAT 98
--- NOTE | 2023-11-21 23:44 | ED.GENADULT ---
HPI - General Adult General Chief complaint: Weakness Stated complaint: weakness-signed out ama from the floor Time Seen by Provider: 11/21/23 23:20 History of Present Illness HPI narrative: Patient is a 62-year-old gentleman who presents emergency department with chief complaint of abdominal pain. Patient was admitted to the hospital and left AMA yesterday after having a paracentesis. Patient reports he continues to have abdominal pain reports he feels weak and run down Related Data Home Medications Medication Instructions Recorded Confirmed amlodipine 10 mg PO DAILY 11/20/23 11/20/23 amoxicillin 875 mg-potassium 1 tablet PO Q12H 11/20/23 11/20/23 clavulanate 125 mg tablet cyclobenzaprine 10 mg PO DAILY 11/20/23 11/20/23 Allergies Allergy/AdvReac Type Severity Reaction Status Date / Time No Known Allergies Allergy Uncoded 03/20/19 08:01 Review of Systems Review of Systems: A 10 system review of systems was completed on the patient and is negative except for what is stated in the HPI. Nursing and ancillary documentation was reviewed. FORMERLY [facility] Past Medical History Medical History Bladder cancer COPD (chronic obstructive pulmonary disease) Hepatitis C Surgical History Surgical History History of total cystectomy History of urostomy Family History Family History Sibling Family history of malignant neoplasm Colorectal cancer Diabetes mellitus Family history of cardiovascular disease Father Cirrhosis of liver PVD (peripheral vascular disease) Mother Breast cancer Social History Social History Social History: The patient lives with his significant other/long-term girlfriend who is bedbound and he is her primary caregiver. He smokes daily. He has a history of alcoholism but is reportedly has been sober for 15 years. The patient voiced nursing staff that he would want his son to provide any necessary information. Code status is presumed to be full code as nursing staff was unable to reach the patient's son. Smoking packs per day: 1.5 Smoking cigarettes per day: 30.0 Years smoked: 44 Smoking pack-years: 66.00 Smoking status: Current every day smoker Tobacco type: cigarettes Second hand tobacco smoke exposure: Yes Alcohol intake: former Drinks per week: 90 Alcohol use details: Patient used to drink 30 pack every other day and would drink until he passed out. Substance use: current Substance use type: marijuana Last use: 2014 Do You Feel Safe in your Home?: Yes Lack of Transportation: No Lack of Food: Sometimes True Current Housing: I Have Housing Concerned About Future Housing: YES Difficulty Paying Gas/Electric Bills: YES Difficulty Paying for Meds: YES Currently Unemployed: No Education: High School Diploma/GED Difficulty w/ Childcare or Family Care: YES Spiritual care concerns: No Exam Narrative: GENERAL: Well-appearing, well-nourished, and in no acute distress. HEAD: Normocephalic, atraumatic. EYES: PERRLA and EOMI. ENT: Nares clear, no rhinorrhea or epistaxis. Mucous membranes moist. NECK: Supple. CHEST: Clear to auscultation. No respiratory distress. HEART: Regular rate and rhythm. No murmur heard. Normal peripheral pulses. ABDOMEN: Soft, nontender, nondistended, normal active bowel sounds. ostomy present in the right lower quadrant EXTREMITIES: Normal range of motion. No edema. SKIN: Warm, dry, no rash. NEURO: No focal deficits. Alert and oriented x3. PSYCH: Normal mood and affect. Course Vital Signs Vital signs: Vital Signs Temperature 36.2 C L 11/21/23 23:01 Pulse Rate 78 11/21/23 23:01 Respiratory Rate 16 11/21/23 23:01 Blood Pressure 76/56
[2023-11-22] VITALS (24 sets, daily range): BP systolic 95–116; BP diastolic 62–76; PULSE 80–89; RESP 16–25; TEMP 35.7–36.4; O2SAT 92–100; BMI 25.2
[2023-11-22] MEDS: SODIUM CHLORIDE 0.9% IV 1,000 ML 999 ML IV CONT ×3 (00:05→00:58)
[2023-11-22 00:09] LABS: Basophils Absolute Auto 0.1 K/mm3 (0.0-0.1); Basophils Percent Auto 0.3 % (0.2-1.2); Hematocrit 42.5 % (42.0-52.0); Hemoglobin 14.9 g/dL (14.0-18.0); Immature Granulocyte Percent A 1.1 % (0-0.5); Lymphocytes Absolute Auto 1.65 K/mm3 (0.9-3.2); Lymphocytes Percent Auto 6.3 % (18.3-44.2); Mean Corpuscular HGB Conc 35.1 g/dl (32-36); Mean Corpuscular Hemoglobin 28.7 pg (26-34); Mean Corpuscular Volume 81.7 fl (80-100); Mean Platelet Volume 11.6 fl (7.4-10.4); Monocytes Absolute Auto 1.4 K/mm3 (0.1-0.6); Monocytes Percent Auto 5.3 % (2.6-8.5); Neutrophils Absolute Auto 22.8 K/mm3 (1.3-6.7); Platelet Count Result 306 k/mm3 (150-375); Red Cell Distribution Width 14.3 % (11.5-14.5); White Blood Count 26.2 K/mm3 (4.5-10.0)
[2023-11-22 00:18] LABS: Lactic Acid Reflex 1.5 mmol/L (0.7-2.0)
[2023-11-22 00:23] LABS: Alanine Aminotransferase 18 U/L (6-50); Albumin Level 2.9 g/dL (3.5-5.1); Alkaline Phosphatase 90 U/L (38-126); Anion Gap 16 mmol/L (4-12); Aspartate Amino Transferase 25 U/L (17-59); Bilirubin,Total 2.8 mg/dL (0.2-1.3); Calcium 8.1 mg/dL (8.4-10.2); Carbon Dioxide 15 mmol/L (22-30); Chloride 100 mmol/L (98-107); Estimated CRCL calculation 13 ml/min; Estimated Glomerular Filt Rate 11; Glucose 111 mg/dL (65-110); Potassium 5.5 mmol/L (3.4-5.0); Sodium 131 mmol/L (137-145)
[2023-11-22 00:30] LABS: Anisocytosis 1+; Burr Cells 2+; Ovalocytes 1+; Platelet Estimate Adequate (Adequate); Schistocytes None Seen
[2023-11-22 00:42] LABS: Blood Urea Nitrogen 156 mg/dL (9-20)
[2023-11-22] MEDS: VANCOMYCIN 1,000 MG/NS 250 ML 1,000 MG/250 ML BAG 250 MG IVPB (02:56)
[2023-11-22] MEDS: CEFEPIME 2 GM/NS 50 ML 2 GM/50 ML BAG IVPB (02:56)
--- NOTE | 2023-11-22 03:00 | PC.NURSE ---
Down time charting for medication administration times.
--- NOTE | 2023-11-22 03:24 | PM.IMHP ---
H&P: HPI History of Present Illness Date/Time: 11/22/23 03:24 Chief Complaint: ?I feel like shit? Narrative: 62-year-old male with a past medical history of IV opiate abuse, chronic tobacco abuse, hepatitis-C, former alcohol abuse, essential hypertension and COPD who presented to the ER via EMS from home due to weakness and abdominal pain. The patient had been admitted to the hospital on 11/20/2023 due to sepsis, encephalopathy, acute renal failure and ascites and was evaluated by this examiner. He woke up the next morning after being encephalopathic and minimally responsive at the time of my evaluation only to tell providers that if they were not providing him with IV fentanyl that he would be leaving against medical advice to go get his supply. The patient left AMA. A few hours later the patient return to the ER via EMS because he ?felt like shit. He reports that his son picked him up from the hospital but would not take him to go get his drug supply and he was feeling bad enough that he decided come back to the hospital. He reports that his abdominal pain had significantly improved after he received paracentesis yesterday any thought that he would be fine at home. But within a couple of hours of being home his abnormal pain continued to worsen in his abdomen was back to being distended again so he decided come back to the hospital. He reports that he acutely developed abdominal distention over the last 2-3 weeks this was accompanied by scleral icterus which she had not previously noticed. He has had associated decreased appetite. At the time of my evaluation patient's mucous membranes were dry any had a thick plaque her material to his or posterior mouth. He states he does have a sore throat has sensation of globus. It sounds as if he has frequent GERD. During his last ER visit it was suspected he may have been having some hematemesis but is a gastric contents were negative for blood with NG placement and lavage. He did have weakly positive Hemoccult stools but hemoglobin had been stable on repeat labs. He had also presented with acute renal failure on the with creatinine of 4.4 and BUN of 145. He did have severe hypokalemia during last presentation but potassium is relatively stable compared to 12 hours prior at 5.5. He denies known history of renal failure. He does report generalized pruritus. His creatinine on presentation denies was further elevated to 5.1 and BUN 07/04/2055. He reports that he has felt weak since he left the hospital and was so lightheaded that he did fall causing a skin tear on his right elbow. He denies hitting his head or loss of consciousness. He did have lactic acidosis during his last hospitalization but lactic acid today was normal. He does report that he has been having incontinent stools in relates this to being in withdrawal. He states that he last used IV opiates on the however this does not fit with the patient's clinical presentation and the fact that his urine drug screen was still positive for opiates on the without being administered opiate medications within our facility. The patient reports he has had increased tachypnea and cough but his cough is nonproductive. His shortness of breath has been worse for the last week or so. He denies any chest pain or palpitations. His shortness of breath is worse with exertion. He denies lower extremity swelling or orthopnea. The patient was examined today lying on his back with has a bed at 20? without any evidence of distress. The patient received 30 mL/kilos bolus in the ER with improvement in his blood pressures. Initial blood pressures in the ER were in the 70s. Patient reports that he does not feel quite is lightheaded after he received fluids. His shortness of breath is stable. He has been having low urine output from his urostomy. During the patient's last hospitalization I discussed the patient's severity of illness with him in great detail. He
[2023-11-22] MEDS: hydrOXYzine HCl 50 MG/ML VIAL 25 MG IM (04:51)
--- NOTE | 2023-11-22 05:53 | ADMGEN ---
This patient, Patsy Thompson, was admitted to IMU Room 214-01. Patient/family oriented to hospital policies and general routines including ID bracelet, bed and alarms, visiting hours, pain management, procedures, bathroom and other care routines, personal items, smoking policy, room service/diet, and visiting hours. Information on how to activate the Rapid Response Team has been discussed. Patient/Family are encouraged to report perceived risks to care and to ask questions if they do not understand what they are told or what they should do.
[2023-11-22] MEDS: SODIUM BICARBONATE 8.4% 150 MEQ in DEXTROSE 5% 1,000 ML 950 ML 75 MEQ IV CONT ×2 (06:09→20:24)
[2023-11-22 06:57] LABS: Barbiturate Screen Urine Negative (Negative); Benzodiazepines Screen Urine Negative (Negative)
[2023-11-22 07:04] LABS: Amphetamine Screen Urine Negative (Negative); Cannabinoid Screen Urine Negative (Negative); Cocaine Screen Urine Negative (Negative); Methadone Screen Urine Negative (Negative); Opiate Screen Urine Positive (Negative); Phencyclidine Screen Urine Negative (Negative)
[2023-11-22 07:17] LABS: Appearance Urine Cloudy (Clear); Bilirubin Urine Negative (Negative); Blood Urine 2+ (Negative); Color Urine Dark Yellow (Yellow); Glucose Urine UA Negative (Negative); Ketones Urine Negative (Negative); Leukocyte Esterase Ur 3+ LEU/UL (Negative); Nitrate Urine Negative (Negative); Protein Urine Trace mg/dL (Negative); Specific Grav Ur 1.018 (1.001-1.035); pH Urine 5.5 (5.0-9.0)
[2023-11-22 07:19] LABS: Add Urine Microscopic? YES; Bacteria Urine None Seen /hpf; Budding Yeast Urine Present /hpf; Need Manual Microscopic Reviewed; Non Pathogenic Casts 0-2; RBC Urine >100 /hpf (0-2); Squamous Epithelial Cell Urine None Seen /hpf (Few); WBC Urine 21-50 /hpf (0-3)
[2023-11-22] MEDS: NICOTINE (*PBKC) 21 MG PATCH 1 PATCH TRANSDERM (09:51)
[2023-11-22] MEDS: HEPARIN SODIUM 5,000 UNITS/ML VIAL 5000 UNITS SUB-Q ×2 (09:51→20:25)
--- NOTE | 2023-11-22 09:54 | PCRCNOTE ---
Window of time for administration has passed. See next scheduled administration.
[2023-11-22] MEDS: ALBUTEROL SULFATE NEB 2.5 MG/3 ML INH 5 MG INHALATION ×2 (11:55→21:00)
[2023-11-22] MEDS: UMECLIDINIUM BROMIDE 62.5 MCG ELLIPTA 1 PUFF INHALATION (11:56)
--- NOTE | 2023-11-22 13:29 | PM.PNNEP ---
Progress Note: A&P Assessment and Plan (1) DELISA (acute kidney injury): Code(s): N17.9 - Acute kidney failure, unspecified Status: Acute Assessment and Plan: The patient has a acute kidney injury. CT does not show significant hydronephrosis. He has a urostomy so there is always going to be a little bit of dilatation of the pelvic system. fractional excretion of urea does show pre renal azotemia. Total CPK is okay UA shows blood and white cells. Most likely his acute kidney injury is due to hypotension, sepsis, UTI. He was getting IV fluids yesterday and his kidney numbers were improving, however he signed out AMA and now is back to where he was before. Hopefully his BUN and creatinine will resume their improvement since he is getting IV fluids again. If the numbers do not get better tomorrow then we may need to do dialysis. So far he does not have any uremic signs or symptoms and so we can hold off today and see how fluids to overnight. Just to rule out other causes of renal failure, we have other tests pending. C3 and C4 are okay and kappa lambda ratio is okay as well. Surprisingly sed rate is only 16 (2) Colitis: Code(s): K52.9 - Noninfective gastroenteritis and colitis, unspecified Status: Acute Assessment and Plan: Patient has thickened sigmoid colon. Colitis may be causing his abdominal pain plus the ascites. (3) SBP (spontaneous bacterial peritonitis): Code(s): K65.2 - Spontaneous bacterial peritonitis Status: Acute Assessment and Plan: cultures are pending. He is on antibiotics. (4) Metabolic acidosis: Code(s): E87.20 - Acidosis, unspecified Status: Acute Assessment and Plan: Bicarbonate level is low. Anion gap is a little bit high. He had an anion gap of 10 a few years ago so this may be his baseline. He had a mixed anion gap plus non anion gap metabolic acidosis. Lactate level was high but it is back to normal now. He is on a bicarb drip Subjective Date/time seen: 11/22/23 13:29 Interval history: patient signed out AMA yesterday afternoon and came back yesterday evening with his belly pain. Today he still has belly discomfort. He is hoping to get some medication to relieve the pain. He has no shortness of breath. Eating okay. Mentation is okay. No nausea. Review of Systems Cardiovascular: Cardiovascular: Reports no additional cardiovascular complaints Respiratory: Respiratory: Reports no additional respiratory complaints Gastrointestinal: Gastrointestinal: Reports no additional gastrointestinal complaints Genitourinary: Genitourinary: Reports no additional male genitourinary complaints Exam Narrative: WDWN in NAD skin no rash head ncat lungs clear cor reg no rub abd BS+ Diffusely and mildly tender and soft ext no edema. Objective Data Vital Signs Vital Signs: Vital Signs - 24 hr 11/21/23 23:01 11/22/23 03:37 11/22/23 04:52 Temperature 97.2 F L Pulse Rate 78 83 82 Respiratory Rate 16 16 25 H Blood Pressure 76/56 L 102/76 102/76 Pulse Oximetry 98 100 96 Oxygen Delivery Room Air Oxygen Flow Rate 11/22/23 05:23 11/22/23 05:35 11/22/23 06:00 Temperature 97.6 F Pulse Rate 84 84 84 Respiratory Rate 16 24 H Blood Pressure 102/62 103/70 Pulse Oximetry 96 100 Oxygen Delivery Oxygen Flow Rate 11/22/23 06:03 11/22/23 07:04 11/22/23 08:53 Temperature 97.6 F Pulse Rate 84 81 Respiratory Rate 24 H 22 H Blood Pressure 116/70 Pulse Oximetry 100 100 95 Oxygen Delivery Nasal Cannula Nasal Cannula Oxygen Flow Rate 2 1 11/22/23 08:00 11/22/23 08:00 11/22/23 10:00 Temperature Pulse Rate 88 84 Respiratory Rate 22 H Blood Pressure Pulse Oximetry 98 Oxygen Delivery Nasal Cannula Oxygen Flow Rate 2 11/22/23 11:52 11/22/23 11:58 11/22/23 12:13 Temperature 96.6 F L Pulse Rate 83 80 83 Respiratory Rate 2
--- NOTE | 2023-11-22 14:37 | PM.IMPN ---
Progress Note: A&P Assessment and Plan (1) Sepsis: Qualifiers: Acute renal failure type: unspecified Sepsis acute organ dysfunction status: with acute organ dysfunction Sepsis type: sepsis due to unspecified organism Severe sepsis acute organ dysfunction type: acute renal failure Severe sepsis shock status: without septic shock Qualified Code(s): A41.9 - Sepsis, unspecified organism; R65.20 - Severe sepsis without septic shock; N17.9 - Acute kidney failure, unspecified Code(s): A41.9 - Sepsis, unspecified organism Status: Acute Assessment and Plan: Patient has sepsis due to Gram-negative bacillus associated SBP. Patient afebrile but WBC 26K. Lactic acid was 3.7 CT Abd/Pelvis - moderate ascites with nonspecific stranding and paracentesis recommended BCx 11/19: NGTD Paracentesis 11/20: removed 550mL yellow, cloudy fluid with WBC 2700 with 90% neutrophils. Paracentesis Cx: gram stain GNB UA on 11/20/23: 3+ blood, >100RBC, 51-100 WBC and 3+ LE. UCx grew Hilda BCx 11/21 NGTD UCx 11/21 pending Started on cefepime here. Follow up on cultures. (2) DELISA (acute kidney injury): Code(s): N17.9 - Acute kidney failure, unspecified Status: Acute Assessment and Plan: Patient denies underlying CKD. Cr 5.5 with BUN 160 on original admission and improved to 4.[address] Abd/Pelvis showing s/p prostatectomy, cystectomy with ileal conduit. There is fluid in the ileal conduit and mild hydrourteronephrosis. Patient signed out against medcial advise and returned overnight. Repeat Cr this admission was 5.1 with BUN 156. Potassium 5.5 with Bicarb level 15 and AG 16. Suspect metabolic gap and nongap acidosis related to DELISA and ileal conduit. Started on sodium bicarb drip Scant UOP. Etiology unclear but consider ATN from sepsis, HoTN, post-obstructive process, acute GN, HepC related, related to IV drug use Nephrology consulted. Dialysis being considered. (3) SBP (spontaneous bacterial peritonitis): Code(s): K65.2 - Spontaneous bacterial peritonitis Status: Acute Assessment and Plan: CT abdomen showing no obvious cirrhosis but does show asctites. Suspect underling cirrhosis. INR 1.3 last admission. He has known HepC. Pathology showing marked acute inflammation but no malignancy. As above. (4) Hypotension arterial: Qualifiers: Hypotension type: unspecified hypotension type Qualified Code(s): I95.9 - Hypotension, unspecified Code(s): I95.9 - Hypotension, unspecified Status: Acute Assessment and Plan: Patient's BP 76/56 on this admission. BP low last admission as well. Related to sepsis. Treated with IV fluids. Follow (5) Colitis: Code(s): K52.9 - Noninfective gastroenteritis and colitis, unspecified Status: Acute Assessment and Plan: Last admission, CT Abd/pelvis showing air-fluid levels t/o the small bowel but not felt to be obstructive process. Some wall thickening along the sigmoid c/w colitis. Patient with abd pain. Check KUB, Start Flagyl (6) Acute hyperkalemia: Code(s): E87.5 - Hyperkalemia Status: Acute Assessment and Plan: Potassium was 6 last admission but dropped to 5.3. Potassium 5.5 today. Follow. Repeat labs later today. (7) Acute uremia: Code(s): N19 - Unspecified kidney failure Status: Acute Assessment and Plan: As above. May need HD if condition does not improve (8) Ascites: Qualifiers: Ascites type: other type Qualified Code(s): R18.8 - Other ascites Code(s): R18.8 - Other ascites Status: Acute Assessment and Plan: Etiology felt to be cirrhosis. Check RUQ US. Check ammonia level. Check Echo (9) Metabolic acidosis: Code(s): E87.20 - Acidosis, unspecified Status: Acute Assessment and Plan: Related to above (10) Active intravenous drug use: Code(s): F19.90
[2023-11-22 18:30] LABS: Ammonia < 9 umol/L (9-30)
[2023-11-22 18:31] LABS: Albumin Level 2.8 g/dL (3.5-5.1); Anion Gap 14 mmol/L (4-12); Blood Urea Nitrogen > 120 mg/dL (9-20); Calcium 7.9 mg/dL (8.4-10.2); Carbon Dioxide 16 mmol/L (22-30); Chloride 101 mmol/L (98-107); Estimated CRCL calculation 16 ml/min; Estimated Glomerular Filt Rate 12; Glucose 128 mg/dL (65-110); Phosphorus 7.4 mg/dL (2.5-4.5); Potassium 5.2 mmol/L (3.4-5.0); Sodium 131 mmol/L (137-145)
[2023-11-22 18:34] LABS: INR 1.3; Prothrombin Time 16.8 Seconds (11.1-14.7)
[2023-11-22] MEDS: metroNIDAZOLE 500 MG/ISO 100ML 500 MG/100 ML BAG 100 MG IVPB ×2 (18:43→23:55)
[2023-11-22 19:05] LABS: Hepatitis B Surface Antigen Negative (Negative)
[2023-11-22 19:09] LABS: HIV 1/2 Ab P24 Ag Result Negative (Negative)
[2023-11-22 19:10] LABS: Hepatitis B Core IgM Result Negative (Negative)
[2023-11-22 19:21] LABS: Hepatitis B Surface Anti Res Negative
[2023-11-22] MEDS: HYDROcodone/acetaminophen (*CRX) 5-325 MG TABLET 1 TAB PO (20:24)
--- NOTE | 2023-11-22 21:11 | PC.NURSE ---
Received call from sister requesting an update on patient condition. Explained per HIPPA information could not be provided to individuals not listed on the contact list. Transferred to the phone in the patient room.
--- NOTE | 2023-11-22 21:29 | PC.NURSE ---
This RN walked into the pt room at 1945, pt on 5L NC. Family beside stated he couldn't breath so I put him on oxygen I instructed the family to call nursing staff for any concerns and not to touch any medical devices. I made IMU charge nurse, Devi, aware of the situation.
--- NOTE | 2023-11-22 21:55 | PC.NURSE ---
[id number] Patient approved son Patsy to be added to the contact list.
[2023-11-23] VITALS (18 sets, daily range): BP systolic 91–112; BP diastolic 58–68; PULSE 67–98; RESP 16–26; TEMP 35.8–36.6; O2SAT 90–96
--- NOTE | 2023-11-23 | ECHO_ITS ---
Patient Info Name: Patsy Thompson Age: 62 years : 1960 Gender: Male Ht: 73 in Wt: 201 lbs BSA: 2.18 m2 HR: 90 bpm BP: 91 / 58 mmHg Heart Rhythm: Sinus Rhythm Technical Quality: Poor Exam Date: 11/23/2023 8:37 AM Exam Location: Echo Lab Patient Status: Inpatient Admit Date: 11/22/2023 Staff Ordering Physician: Frank Pederson MD Senior Risk Analyst: Poncho Kelly RDCS Attending Provider: Kiana Rasmussen DO Exam Type: CA echo doppler color flow Study Info Indications - ascites Complete two-dimensional, color flow and Doppler transthoracic echocardiogram is performed. Reason for Poor Study: poor echocardiographic windows Summary 1. Complete two-dimensional, color flow and Doppler transthoracic echocardiogram is performed. 2. Normal left ventricular dimension in thickness with vigorous systolic contractility. 3. Mildly calcified mitral valve annulus. 4. Mild aortic valve sclerosis, normally functioning valve. 5. No apparent cardiac reason that would explain ascites. Left Ventricle Left ventricular chamber dimension is normal. Left ventricular systolic function is hyperdynamic, estimated at >70%. The left ventricular diastolic function is grade I diastolic dysfunction. Right Ventricle Right ventricular chamber dimension is normal. Left Atria Left atrial chamber dimension is normal. Right Atria Right atrial chamber dimension is normal. Aortic Valve The aortic valve is trileaflet. There is mild aortic valve sclerosis. Pulmonic Valve The pulmonic valve is not well visualized. Mitral Valve The mitral valve has normal leaflets. The mitral valve annulus is mildly calcified. Tricuspid Valve The tricuspid valve leaflets are normal. Pericardium/Pleural The pericardium appears normal. Aorta The aortic root size at the sinus of Valsalva is normal. Left Ventricular Outflow Tract Name Value Normal LVOT 2D LVOT Diameter 1.9 cm Pulmonic Valve Name Value Normal PV Doppler PV Peak Gradient 6 mmHg Tricuspid Valve Name Value Normal TV Regurgitation Doppler TR Peak Velocity 258 cm/s TR Peak Gradient 27 mmHg Aortic Valve Name Value Normal AV Regurgitation 2D LVOT Area 2.9 cm2 Ventricles Name Value Normal LV Dimensions 2D/MM
[2023-11-23] MEDS: ALBUTEROL SULFATE NEB 2.5 MG/3 ML INH 5 MG INHALATION ×4 (02:20→21:00)
[2023-11-23 04:00] LABS: Hematocrit 41.1 % (42.0-52.0); Hemoglobin 14.1 g/dL (14.0-18.0); Mean Corpuscular HGB Conc 34.3 g/dl (32-36); Mean Corpuscular Hemoglobin 28.7 pg (26-34); Mean Corpuscular Volume 83.5 fl (80-100); Mean Platelet Volume 11.8 fl (7.4-10.4); Platelet Count Result 328 k/mm3 (150-375); Red Blood Count 4.92 M/mm3 (4.6-6.20); Red Cell Distribution Width 14.5 % (11.5-14.5); White Blood Count 34.8 K/mm3 (4.5-10.0)
[2023-11-23 04:13] LABS: Albumin Level 3.1 g/dL (3.5-5.1); Anion Gap 18 mmol/L (4-12); Carbon Dioxide 13 mmol/L (22-30); Chloride 101 mmol/L (98-107); Estimated CRCL calculation 16 ml/min; Estimated Glomerular Filt Rate 12; Glucose 133 mg/dL (65-110); Phosphorus 7.4 mg/dL (2.5-4.5); Potassium 5.1 mmol/L (3.4-5.0); Sodium 132 mmol/L (137-145)
[2023-11-23] MEDS: CEFEPIME 1 GM/NS 50 ML 1 GM/50 ML BAG IVPB (04:16)
[2023-11-23 04:20] LABS: Vancomycin Random 8.4 ug/mL (10-20)
[2023-11-23 04:25] LABS: Blood Urea Nitrogen 147 mg/dL (9-20)
[2023-11-23] MEDS: VANCOMYCIN 1,250 MG/NS 250 ML 1,250 MG/250 ML BAG 166.67 MG IVPB (05:23)
[2023-11-23] MEDS: UMECLIDINIUM BROMIDE 62.5 MCG ELLIPTA 1 PUFF INHALATION (08:03)
[2023-11-23] MEDS: metroNIDAZOLE 500 MG/ISO 100ML 500 MG/100 ML BAG 100 MG IVPB ×2 (08:27→17:30)
[2023-11-23] MEDS: HEPARIN SODIUM 5,000 UNITS/ML VIAL 5000 UNITS SUB-Q ×2 (08:27→20:11)
[2023-11-23] MEDS: NICOTINE (*PBKC) 21 MG PATCH 1 PATCH TRANSDERM (08:27)
[2023-11-23] MEDS: HYDROcodone/acetaminophen (*CRX) 5-325 MG TABLET 1 TAB PO ×2 (11:03→22:14)
--- NOTE | 2023-11-23 11:09 | PM.PNNEP ---
Progress Note: A&P Assessment and Plan (1) DELISA (acute kidney injury): Code(s): N17.9 - Acute kidney failure, unspecified Status: Acute Assessment and Plan: The patient has a acute kidney injury. CT does not show significant hydronephrosis. He has a urostomy so there is always going to be a little bit of dilatation of the pelvic system. So I do not think there is obstruction. fractional excretion of urea does show pre renal azotemia. Total CPK is okay UA shows blood and white cells. Most likely his acute kidney injury is due to hypotension, sepsis, UTI. He does have blood in the urine but also has pus so I do not think this is a glomerulonephritis. Besides that because of his infection he would not tolerate steroids anyway. He has received IV fluids overnight. BUN and creatinine have started coming down once again. He has no uremic symptoms. Will go another couple of days with IV fluids and see how he does. (2) Colitis: Code(s): K52.9 - Noninfective gastroenteritis and colitis, unspecified Status: Acute Assessment and Plan: Patient has thickened sigmoid colon. Colitis may be causing his abdominal pain plus the ascites. (3) SBP (spontaneous bacterial peritonitis): Code(s): K65.2 - Spontaneous bacterial peritonitis Status: Acute Assessment and Plan: cultures are pending. He is on antibiotics. (4) Metabolic acidosis: Code(s): E87.20 - Acidosis, unspecified Status: Acute Assessment and Plan: Bicarbonate level is low. Anion gap is higher. Will check another lactic acid level. He is on a bicarb drip Subjective Date/time seen: 11/23/23 11:09 Interval history: Patient is feeling better. Belly is still distended but is much less tender. Eating some food. Exam Narrative: WDWN in NAD skin no rash head ncat lungs clear cor reg no rub abd BS+ soft but distended. Not as tender as yesterday ext no edema. Objective Data Vital Signs Vital Signs: Vital Signs - 24 hr 11/22/23 11:52 11/22/23 11:58 11/22/23 12:13 Temperature 96.6 F L Pulse Rate 83 80 83 Respiratory Rate 20 20 20 Blood Pressure 95/62 L Pulse Oximetry 93 Oxygen Delivery Oxygen Flow Rate 11/22/23 12:00 11/22/23 12:00 11/22/23 14:00 Temperature Pulse Rate 83 85 Respiratory Rate 23 H Blood Pressure Pulse Oximetry 100 Oxygen Delivery Nasal Cannula Oxygen Flow Rate 2 11/22/23 15:32 11/22/23 16:00 11/22/23 16:00 Temperature 97.4 F L Pulse Rate 84 85 Respiratory Rate 18 20 Blood Pressure 110/64 Pulse Oximetry 100 99 Oxygen Delivery Nasal Cannula Oxygen Flow Rate 2 11/22/23 18:00 11/22/23 20:00 11/22/23 20:00 Temperature 96.2 F L Pulse Rate 89 88 Respiratory Rate 16 Blood Pressure 101/67 Pulse Oximetry 100 Oxygen Delivery Room Air Oxygen Flow Rate 11/22/23 21:00 11/22/23 21:04 11/22/23 21:11 Temperature Pulse Rate 88 84 Respiratory Rate 20 20 Blood Pressure Pulse Oximetry 92 Oxygen Delivery Nasal Cannula Oxygen Flow Rate 1 11/22/23 20:00 11/22/23 22:00 11/22/23 23:58 Temperature Pulse Rate 84 85 Respiratory Rate Blood Pressure Pulse Oximetry 95 Oxygen Delivery Nasal Cannula Oxygen Flow Rate 1 11/23/23 00:00 11/23/23 00:00 11/23/23 02:21 Temperature 97.2 F L Pulse Rate 88 88 90 Respiratory Rate 16 20 Blood Pressure 97/61 L Pulse Oximetry 96 Oxygen Delivery Oxygen Flow Rate 11/23/23 02:31 11/23/23 02:00 11/23/23 04:00 Temperature Pulse Rate 87 88 Respiratory Rate 20 Blood Pressure Pulse Oximetry 93 Oxygen Delivery Nasal Cannula Oxygen Flow Rate 1 11/23/23 04:00 11/23/23 04:00 11/23/23 05:28 Temperature 96.5 F L Pulse Rate 88 87 90 Respiratory Rate 22 H Blood Pressure 91/58 L Pulse Oximetry 93 Oxygen Delivery Oxygen Flow Rate 11/23/23 08:07 11/23/23
[2023-11-23 12:25] LABS: Lactic Acid Reflex 1.8 mmol/L (0.7-2.0)
[2023-11-23] MEDS: CALCIUM CARBONATE (TUMS) 500 MG (200 MG ELEMENTAL) 400 MG PO (13:36)
--- NOTE | 2023-11-23 14:08 | PM.IMPN ---
Progress Note: A&P Assessment and Plan (1) Sepsis: Qualifiers: Acute renal failure type: unspecified Sepsis acute organ dysfunction status: with acute organ dysfunction Sepsis type: sepsis due to unspecified organism Severe sepsis acute organ dysfunction type: acute renal failure Severe sepsis shock status: without septic shock Qualified Code(s): A41.9 - Sepsis, unspecified organism; R65.20 - Severe sepsis without septic shock; N17.9 - Acute kidney failure, unspecified Code(s): A41.9 - Sepsis, unspecified organism Status: Acute Assessment and Plan: Patient has sepsis due to EColi associated SBP. Patient afebrile but WBC 26K. Lactic acid was 3.7 CT Abd/Pelvis - moderate ascites with nonspecific stranding and paracentesis recommended BCx 11/19: NGTD Paracentesis 11/20: removed 550mL yellow, cloudy fluid with WBC 2700 with 90% neutrophils. Paracentesis Cx: EColi, sensitivities pending UA on 11/20/23: 3+ blood, >100RBC, 51-100 WBC and 3+ LE. UCx grew Hilda (probably a contaminant or colonizer) BCx 11/21 NGTD UCx 11/21 pending Started on cefepime (11/21 at 3am). WBC 35K today. No fevers. Clinically better and he fells better. Abd US showing multilocular prominent ascites Consider ESBL but better so will continue with cefepime for today. Follow WBC. Follow up on sensitivities. (2) DELISA (acute kidney injury): Code(s): N17.9 - Acute kidney failure, unspecified Status: Acute Assessment and Plan: Patient denies underlying CKD. Cr 5.5 with BUN 160 on original admission and improved to 4.[address] Abd/Pelvis showing s/p prostatectomy, cystectomy with ileal conduit. There is fluid in the ileal conduit and mild hydrourteronephrosis. Patient signed out against medical advise and returned overnight. Repeat Cr this admission was 5.1 with BUN 156. Potassium 5.5 with Bicarb level 15 and AG 16. Suspect metabolic gap and nongap acidosis related to DELISA and ileal conduit. Started on sodium bicarb drip Cr better at 4.9. BUN 147. UOP improved. Etiology unclear but consider ATN from sepsis, HoTN, post-obstructive process, acute GN, HepC related, related to IV drug use Nephrology consulted. Abd US showing moderate bilateral hydronephrosis. Suspect this is old but will discuss with nephrology Dialysis being considered but on hold. Contnue IV fluids with bicarb (3) SBP (spontaneous bacterial peritonitis): Code(s): K65.2 - Spontaneous bacterial peritonitis Status: Acute Assessment and Plan: CT abdomen showing no obvious cirrhosis but does show ascites. He has known HepC. Path from ascitic fluid showing marked acute inflammation but no malignancy. Ammonia <9. Abd US showing hepatic cyst, normal spleen size and sludge in GB. As above. (4) Hypotension arterial: Qualifiers: Hypotension type: unspecified hypotension type Qualified Code(s): I95.9 - Hypotension, unspecified Code(s): I95.9 - Hypotension, unspecified Status: Acute Assessment and Plan: Patient's BP 76/56 on this admission. BP low last admission as well. Related to sepsis. Treated with IV fluids. SBP running 90-110. Amlodipine on hold. Follow (5) Colitis: Code(s): K52.9 - Noninfective gastroenteritis and colitis, unspecified Status: Acute Assessment and Plan: Last admission, CT Abd/pelvis showing air-fluid levels t/o the small bowel but not felt to be obstructive process. Some wall thickening along the sigmoid c/w colitis. Patient with abd pain related to colitis and/or SBP. KUB showing slightly dilated SB but no obstruction. Started on Flagyl 11/21 Passing flatus and BM (but not documented) Follow (6) Acute hyperkalemia: Code(s): E87.5 - Hyperkalemia Status: Acute Assessment and Plan: Potassium was 6 last admission but dropped to 5.3. Potassium 5.5 this admission related to DELISA Repeat potassium trending down Follow.
[2023-11-23] MEDS: SODIUM BICARBONATE 8.4% 150 MEQ in DEXTROSE 5% 1,000 ML 950 ML 75 MEQ IV CONT (14:35)
[2023-11-23] MEDS: PANTOPRAZOLE 40 MG TABLET PO (17:30)
[2023-11-24] VITALS (28 sets, daily range): BP systolic 90–130; BP diastolic 62–89; PULSE 81–95; RESP 16–20; TEMP 36.1–36.9; O2SAT 92–99
[2023-11-24] MEDS: metroNIDAZOLE 500 MG/ISO 100ML 500 MG/100 ML BAG 100 MG IVPB ×2 (00:10→09:17)
[2023-11-24] MEDS: ALBUTEROL SULFATE NEB 2.5 MG/3 ML INH 5 MG INHALATION ×4 (02:55→21:13)
[2023-11-24] MEDS: CEFEPIME 1 GM/NS 50 ML 1 GM/50 ML BAG IVPB (03:44)
[2023-11-24 04:32] LABS: Basophils Absolute Auto 0.1 K/mm3 (0.0-0.1); Basophils Percent Auto 0.2 % (0.2-1.2); Eosinophils Percent Auto 0.1 % (0-4.4); Hematocrit 37.5 % (42.0-52.0); Hemoglobin 12.8 g/dL (14.0-18.0); Immature Granulocyte Percent A 1.3 % (0-0.5); Lymphocytes Absolute Auto 1.37 K/mm3 (0.9-3.2); Lymphocytes Percent Auto 4.5 % (18.3-44.2); Mean Corpuscular HGB Conc 34.1 g/dl (32-36); Mean Corpuscular Hemoglobin 28.7 pg (26-34); Mean Corpuscular Volume 84.1 fl (80-100); Mean Platelet Volume 12.1 fl (7.4-10.4); Monocytes Absolute Auto 1.3 K/mm3 (0.1-0.6); Monocytes Percent Auto 4.2 % (2.6-8.5); Neutrophils Absolute Auto 27.1 K/mm3 (1.3-6.7); Neutrophils Percent Auto 89.7 % (45.5-73.1); Nucleated Red Blood Cells Perc 0.1 % (0.0-0.2); Platelet Count Result 364 k/mm3 (150-375); Red Blood Count 4.46 M/mm3 (4.6-6.20); Red Cell Distribution Width 14.4 % (11.5-14.5); White Blood Count 30.2 K/mm3 (4.5-10.0)
[2023-11-24 04:43] LABS: Lactic Acid Reflex 1.5 mmol/L (0.7-2.0)
[2023-11-24 04:57] LABS: Albumin Level 2.7 g/dL (3.5-5.1); Anion Gap 14 mmol/L (4-12); Calcium 7.7 mg/dL (8.4-10.2); Carbon Dioxide 19 mmol/L (22-30); Chloride 98 mmol/L (98-107); Estimated CRCL calculation 17 ml/min; Estimated Glomerular Filt Rate 13; Glucose 118 mg/dL (65-110); Phosphorus 7.7 mg/dL (2.5-4.5); Potassium 4.2 mmol/L (3.4-5.0); Sodium 131 mmol/L (137-145)
[2023-11-24 04:58] LABS: Blood Urea Nitrogen 143 mg/dL (9-20); Vancomycin Random 17.5 ug/mL (10-20)
[2023-11-24 05:09] LABS: Platelet Estimate Adequate (Adequate)
[2023-11-24 05:10] LABS: Anisocytosis 1+; Hypochromasia 1+; Large Platelets Present; Schistocytes None Seen
[2023-11-24 07:08] LABS: Hepatitis B Core Ab Total NON-REACTIVE (NON-REACTIVE)
[2023-11-24] MEDS: UMECLIDINIUM BROMIDE 62.5 MCG ELLIPTA 1 PUFF INHALATION (08:07)
[2023-11-24] MEDS: SODIUM BICARBONATE 8.4% 150 MEQ in DEXTROSE 5% 1,000 ML 950 ML 75 MEQ IV CONT (09:17)
[2023-11-24] MEDS: HEPARIN SODIUM 5,000 UNITS/ML VIAL 5000 UNITS SUB-Q ×2 (09:17→21:41)
[2023-11-24] MEDS: NICOTINE (*PBKC) 21 MG PATCH 1 PATCH TRANSDERM (09:18)
[2023-11-24] MEDS: PANTOPRAZOLE 40 MG TABLET PO (09:18)
--- NOTE | 2023-11-24 10:19 | PM.PNNEP ---
Progress Note: A&P Assessment and Plan (1) DELISA (acute kidney injury): Code(s): N17.9 - Acute kidney failure, unspecified Status: Acute Assessment and Plan: The patient has a acute kidney injury. CT does not show significant hydronephrosis. He has a urostomy so there is always going to be a little bit of dilatation of the pelvic system. So I do not think there is obstruction. fractional excretion of urea does show pre renal azotemia. Total CPK is okay UA shows blood and white cells. Most likely his acute kidney injury is due to hypotension, sepsis, UTI. He does have blood in the urine but also has pus so I do not think this is a glomerulonephritis. Besides that because of his infection he would not tolerate steroids anyway. he is getting IV fluids. BUN and creatinine are slowly dropping. They are still very high. He has no uremic symptoms. Will hold off on dialysis again today and recheck tomorrow. (2) Colitis: Code(s): K52.9 - Noninfective gastroenteritis and colitis, unspecified Status: Acute Assessment and Plan: Patient has thickened sigmoid colon. Colitis may be causing his abdominal pain plus the ascites. (3) SBP (spontaneous bacterial peritonitis): Code(s): K65.2 - Spontaneous bacterial peritonitis Status: Acute Assessment and Plan: cultures Of the fluid shows E coli. This is pansensitive. He is on antibiotics. (4) Metabolic acidosis: Code(s): E87.20 - Acidosis, unspecified Status: Acute Assessment and Plan: Bicarbonate level is better. Lactic acid level is normal.. He is on a bicarb drip Will continue this. Subjective Date/time seen: 11/24/23 10:19 Interval history: Patient feels better. Belly pain is fine. He is getting more insistent on discharging soon. He has a who is bedridden at home. We discussed that his kidney function is still very poor. If he goes home he probably will end up getting sicker and coming back. Exam Narrative: WDWN male in NAD skin no rash head ncat lungs clear bilaterally cor reg no rub abd BS+ soft but distended. about the same as yesterday. Not very tender. Ostomy bag has yellow urine ext no edema. Objective Data Vital Signs Vital Signs: Vital Signs - 24 hr 11/23/23 12:00 11/23/23 12:00 11/23/23 12:00 Temperature 97.7 F Pulse Rate 90 88 Respiratory Rate 22 H Blood Pressure 112/68 Pulse Oximetry 96 96 Oxygen Delivery Nasal Cannula Oxygen Flow Rate 1 11/23/23 13:35 11/23/23 14:00 11/23/23 16:00 Temperature Pulse Rate 94 87 88 Respiratory Rate 26 H Blood Pressure Pulse Oximetry Oxygen Delivery Oxygen Flow Rate 11/23/23 16:00 11/23/23 16:00 11/23/23 18:00 Temperature 96.5 F L Pulse Rate 98 89 Respiratory Rate 22 H Blood Pressure 97/63 L Pulse Oximetry 90 90 Oxygen Delivery Nasal Cannula Oxygen Flow Rate 1 11/23/23 20:00 11/23/23 21:00 11/23/23 21:23 Temperature 96.9 F L Pulse Rate 67 84 83 Respiratory Rate 24 H 20 20 Blood Pressure 99/60 L Pulse Oximetry 92 Oxygen Delivery Oxygen Flow Rate 11/23/23 20:00 11/23/23 20:00 11/23/23 22:00 Temperature Pulse Rate 67 88 88 Respiratory Rate 24 H Blood Pressure Pulse Oximetry 92 Oxygen Delivery Nasal Cannula Oxygen Flow Rate 3 11/24/23 00:00 11/24/23 00:00 11/24/23 00:00 Temperature 98.5 F Pulse Rate 87 87 89 Respiratory Rate 18 18 Blood Pressure 130/89 Pulse Oximetry 95 95 Oxygen Delivery Nasal Cannula Oxygen Flow Rate 3 11/24/23 02:57 11/24/23 03:04 11/24/23 02:00 Temperature Pulse Rate 84 87 88 Respiratory Rate 20 20 Blood Pressure Pulse Oximetry Oxygen Delivery Oxygen Flow Rate 11/24/23 04:00 11/24/23 04:00 11/24/23 04:00 Temperature 97 F L Pulse Rate 90 89 89 Respiratory Rate 16 16 Blood Pressure 109/65 Pulse Oximetry 97 97 Ox
--- NOTE | 2023-11-24 13:55 | PM.IMPN ---
Progress Note: A&P Assessment and Plan (1) Sepsis: Qualifiers: Acute renal failure type: unspecified Sepsis acute organ dysfunction status: with acute organ dysfunction Sepsis type: sepsis due to unspecified organism Severe sepsis acute organ dysfunction type: acute renal failure Severe sepsis shock status: without septic shock Qualified Code(s): A41.9 - Sepsis, unspecified organism; R65.20 - Severe sepsis without septic shock; N17.9 - Acute kidney failure, unspecified Code(s): A41.9 - Sepsis, unspecified organism Status: Acute Assessment and Plan: Patient has sepsis due to EColi associated SBP. Patient afebrile but WBC 26K. Lactic acid was 3.7 CT Abd/Pelvis - moderate ascites with nonspecific stranding and paracentesis recommended BCx 11/19: NGTD Paracentesis 11/20: removed 550mL yellow, cloudy fluid with WBC 2700 with 90% neutrophils. Paracentesis Cx: EColi that is pansensitive UA on 11/20/23: 3+ blood, >100RBC, 51-100 WBC and 3+ LE. UCx 11/19 and 11/21 grew Hilda (probably a contaminant or colonizer) BCx 11/21 NGTD Abd US showing multilocular prominent ascites. Possibly patietn with micro-bowel perf with SBP but consider leaking urinary system GenSurg consulted and appreciate their input Started on cefepime and Vanco (11/21 at 3am). Flagyl added (11/21 at 640pm) WBC 30K today. No fevers. Clinically better and he fells better. Continue cefepime for now. Follow WBC. (2) DELISA (acute kidney injury): Code(s): N17.9 - Acute kidney failure, unspecified Status: Acute Assessment and Plan: Patient denies underlying CKD. Cr 5.5 with BUN 160 on original admission and improved to 4.[address] Abd/Pelvis showing s/p prostatectomy, cystectomy with ileal conduit. There is fluid in the ileal conduit and mild hydrourteronephrosis. Patient signed out against medical advise and returned overnight. Repeat Cr this admission was 5.1 with BUN 156. Potassium 5.5 with Bicarb level 15 and AG 16. Suspect metabolic gap and nongap acidosis related to DELISA and ileal conduit. Started on sodium bicarb drip Cr better at 4.6. BUN 143 and Bicarb 19. UOP improved. Etiology unclear but consider ATN from sepsis, HoTN, post-obstructive process, acute GN, HepC related, related to IV drug use or urinary leakage into the abd cavity Nephrology consulted. Abd US showing moderate bilateral hydronephrosis. Suspect this is old but will discuss with nephrology Dialysis being considered but on hold. Continue IV fluids with bicarb (3) SBP (spontaneous bacterial peritonitis): Code(s): K65.2 - Spontaneous bacterial peritonitis Status: Acute Assessment and Plan: CT abdomen showing no obvious cirrhosis but does show ascites. He has known HepC. Path from ascitic fluid showing marked acute inflammation but no malignancy. Ammonia <9. Abd US showing hepatic cyst, normal spleen size and sludge in GB. Repeat paracentesis and check urine Cr/BUN in paracentesis fluid As above. (4) Hypotension arterial: Qualifiers: Hypotension type: unspecified hypotension type Qualified Code(s): I95.9 - Hypotension, unspecified Code(s): I95.9 - Hypotension, unspecified Status: Acute Assessment and Plan: Patient's BP 76/56 on this admission. BP low last admission as well. Related to sepsis. Treated with IV fluids. SBP running 90-110. Amlodipine on hold. Follow (5) Colitis: Code(s): K52.9 - Noninfective gastroenteritis and colitis, unspecified Status: Acute Assessment and Plan: Last admission, CT Abd/pelvis showing air-fluid levels t/o the small bowel but not felt to be obstructive process. Some wall thickening along the sigmoid c/w colitis. Patient with abd pain related to colitis and/or SBP. KUB showing slightly dilated SB but no obstruction. Started on Flagyl 11/21 Passing flatus and BM (but not documented) More distended. Plan for repeat paracentesis Fo
--- NOTE | 2023-11-24 15:00 | PM.CNGS ---
Assessment and Plan Assessment and plan (1) Ascites: Qualifiers: Ascites type: other type Qualified Code(s): R18.8 - Other ascites Code(s): R18.8 - Other ascites Status: Acute Assessment and Plan: This new finding is puzzling. Ascites is typically a late finding in cirrhosis and there are no other suggestions of cirrhosis other than the knowledge that he does have hepatitis C. I am concerned that he has a urinary leak either from the renal pelvis, ureter or ileal conduit. He has made very little urine through his hospitalization even though he has had a large amount of IV fluid. I would recommend consulting urology for cystoscopy and retrogrades through the ileal conduit to assess for possible urinary leak. I think another paracentesis would be helpful as he is quite distended with ascites at this time. I would recommend getting a creatinine and or urea nitrogen on this ascites. One also from his ileal conduit/urostomy would also be helpful. Patient does not have an acute abdomen. Recommend continuing IV antibiotics especially since the peritoneal fluid grew E coli. I a discussed my concerns and recommendation with his hospitalist, Dr. Pederson. Thank you for asking me to see him in consultation. Will follow along with you. (2) DELISA (acute kidney injury): Code(s): N17.9 - Acute kidney failure, unspecified Status: Acute Assessment and Plan: Patient's BUN and creatinine remain high but are stable. I was notified by Nephrology that patient may need a temporary intravenous dialysis catheter. (3) Acute uremia: Code(s): N19 - Unspecified kidney failure Status: Acute Assessment and Plan: BUN in the 140s presently (4) Active intravenous drug use: Code(s): F19.90 - Other psychoactive substance use, unspecified, uncomplicated Status: Chronic (5) Tobacco abuse disorder: Code(s): Z72.0 - Tobacco use Status: Chronic History of Present Illness Consult details Consult date: 11/24/23 Reason for consult: abdominal pain Requesting physician: Frank Pederson MD Narrative: Patient is a 62-year-old man who has a known IV opiate abuser. His present illness began about 10 days ago. 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 He laid around his house doing next to nothing for the next 2 days. He did notice that his urine output was minimal. He has an ileal conduit due to radical cystectomy 4 years ago at [facility]. He started drinking a lot of fluids thinking he was dehydrated and went to the emergency room at [facility]. There he was given quite a bit of IV fluid and was discharged. He then started developing abdominal pain more than flank pain. He noted his abdomen was distended as well. He went to the emergency room at [facility] where labs and presentation were concern for sepsis. He was also noted to have quite an elevated serum creatinine and BUN around 150. He denies any previous history of kidney failure or kidney dysfunction. He was admitted and underwent a paracentesis. He felt better after the paracentesis and left AMA saying a few things about acquiring opiates. After being at home, he came back on 11/22/2023 with worsening abdominal pain and very ill. He does have a history of hepatitis-C. He has had no other previous abdominal surgery other than the radical prostatectomy and creation ileal conduit. He did not have any radiation therapy for his bladder cancer but did have neoadjuvant chemotherapy. Patient had a CT scan that showed abundant ascites with loculations. Today had an ultrasound which also showed prominent ascites with loculations. He has had severe leukocytosis throughout [place] hospitalization[place] [address] [place] and was 34.8 1000 yesterday. Patient tells me he has not been nauseated or vomited. He is able to eat but is on a renal diet which
--- NOTE | 2023-11-24 15:58 | WPDURCON ---
Assessment and Plan Assessment and plan (1) Ascites: Qualifiers: Ascites type: other type Qualified Code(s): R18.8 - Other ascites Code(s): R18.8 - Other ascites Status: Acute Assessment and Plan: Unclear etiology of his ascites. It would be extremely rare to have spontaneous urine leak from ileoconduit or ureteral anastomosis 4 yrs after surgery. The peritoneal culture is growing Ecoli, but urine culture only shows sha. At this point, I would recommend repeat paracentesis and have the fluid sent off for creatinine. If peritoneal fluid Cr is same as serum Cr, then this is not a urine leak. If peritoneal fluid Cr is elevated beyond serum Cr, then he will need further evaluation of his urinary tract (likely loopogram and possible antegrade nephrostograms with IR) (2) DELISA (acute kidney injury): Code(s): N17.9 - Acute kidney failure, unspecified Status: Acute Assessment and Plan: Likely multifactorial. Recent hypotension, questionable PO intake before arrival, third-spacing fluids in setting of large volume ascites, and sepsis with Ecoli SBP. Has mild B hydro on recent imaging which is common after ileoconduit formation. Nephrology is on board. If other factors are rectified and if still having ARF, may need to consider nephrostomy tube placement. Retrograde stents are extremely difficult in setting of ileoconduit so would need nephrostomy tube placement with subsequent antegrade stents if concern for obstructive uropathy. (3) Acute uremia: Code(s): N19 - Unspecified kidney failure Status: Acute Assessment and Plan: BUN in the 140s presently (4) Active intravenous drug use: Code(s): F19.90 - Other psychoactive substance use, unspecified, uncomplicated Status: Chronic (5) Tobacco abuse disorder: Code(s): Z72.0 - Tobacco use Status: Chronic Urology Consult Note HPI Date Seen: 11/24/23 Requesting Physician: Kiana Rasmussen DO Primary Care Provider: Dez GaldamezMD Consult Narrative Reason for consult: evaluate for urine leak Narrative: Patsy Thompson is a 62 year old male initially presented to [facility] on 11/20/23 with encephalopathy, ascites and ARF. CT at that time showed ascites with mild bilateral hydronephrosis to level of ileoconduit and inflammation of sigmoid colon. He underwent paracentesis which showed Ecoli in the peritoneal fluid. Urine culture from ileoconduit showed sha. He has a history of hepatitis C and IV drug use. His abdominal pain improved after paracentesis and he left AMA. He subsequently returned to the hospital with recurrent abdominal pain and distention. He has a history of muscle-invasive TCC of the bladder. He underwent 2 cycles of neoadjuvant chemotherapy then quit the clinical trial and underwent a radical cystoprostatectomy and ileoconduit with Dr. Sanchez on 10/22/19 at [facility]. Per the notes from Dr. Decker (med onc), he had no evidence of metastatic disease or residual disease and elected not to continue follow up. He had issues with hypotension in the ER. Most recent creatinine is 4.6, down from 5.5 on initial presentation and his lactate is in normal range. Wbc ct is elevated to 30,000. Has been seen by general surgery, and there was concern for a possible spontaneous urine leak as the source of his recurrent ascites so I was consulted. Patient states he has had good UOP from ileoconduit today and shows me about 200 cc mica urine in his bag. Review of Systems Review of Systems: 12 systems were reviewed with pertinent positives and negatives per HPI. Except as documented in the HPI, all other systems were reviewed and are negative. [facility] Past Medical History Medical History Bladder cancer Colon cancer COPD (chronic obstructive pulmonary disease) Hepatitis C Surgical History Surgical History (Reviewed 11/24/23 @ 15:11 by Sulma
--- NOTE | 2023-11-24 18:25 | PC.NURSE ---
MD aware pt has no IV access at this time. Verbal orders to change IV antibiotics to PO.
[2023-11-24] MEDS: metroNIDAZOLE 500 MG TABLET PO (21:42)
[2023-11-24] MEDS: HYDROcodone/acetaminophen (*CRX) 5-325 MG TABLET 1 TAB PO (21:43)
[2023-11-25] VITALS (22 sets, daily range): BP systolic 92–103; BP diastolic 63–69; PULSE 68–96; RESP 16–20; TEMP 36.4–36.8; O2SAT 90–98
[2023-11-25] MEDS: CEFEPIME 1 GM/NS 50 ML 1 GM/50 ML BAG IVPB (03:07)
[2023-11-25 05:17] LABS: Hematocrit 36.9 % (42.0-52.0); Hemoglobin 12.6 g/dL (14.0-18.0); Mean Corpuscular HGB Conc 34.1 g/dl (32-36); Mean Corpuscular Hemoglobin 28.6 pg (26-34); Mean Corpuscular Volume 83.9 fl (80-100); Mean Platelet Volume 11.8 fl (7.4-10.4); Platelet Count Result 375 k/mm3 (150-375); Red Cell Distribution Width 14.4 % (11.5-14.5); White Blood Count 28.2 K/mm3 (4.5-10.0)
[2023-11-25 05:33] LABS: Albumin Level 2.8 g/dL (3.5-5.1); Anion Gap 11 mmol/L (4-12); Calcium 8.4 mg/dL (8.4-10.2); Carbon Dioxide 25 mmol/L (22-30); Chloride 93 mmol/L (98-107); Estimated CRCL calculation 16 ml/min; Estimated Glomerular Filt Rate 12; Glucose 117 mg/dL (65-110); Potassium 5.3 mmol/L (3.4-5.0); Sodium 129 mmol/L (137-145)
[2023-11-25] MEDS: metroNIDAZOLE 500 MG TABLET PO ×3 (06:23→20:43)
[2023-11-25] MEDS: VANCOMYCIN 1,250 MG/NS 250 ML 1,250 MG/250 ML BAG 166.67 MG IVPB (06:28)
--- NOTE | 2023-11-25 08:07 | PM.PNNEP ---
Progress Note: A&P Assessment and Plan (1) DELISA (acute kidney injury): Code(s): N17.9 - Acute kidney failure, unspecified Status: Acute Assessment and Plan: The patient has a acute kidney injury. CT does not show significant hydronephrosis. He has a urostomy so there is always going to be a little bit of dilatation of the pelvic system. So I do not think there is obstruction. fractional excretion of urea does show pre renal azotemia. Total CPK is okay UA shows blood and white cells. Most likely his acute kidney injury is due to hypotension, sepsis, UTI. less likely GN. he is getting IV fluids. Creatinine federica today. Urine output is very low. I think he needs dialysis. I asked surgery to place a catheter. (2) Colitis: Code(s): K52.9 - Noninfective gastroenteritis and colitis, unspecified Status: Acute Assessment and Plan: Patient has thickened sigmoid colon. Colitis may be causing his abdominal pain plus the ascites. (3) SBP (spontaneous bacterial peritonitis): Code(s): K65.2 - Spontaneous bacterial peritonitis Status: Acute Assessment and Plan: cultures of the fluid shows E coli. This is pansensitive. He is on antibiotics. Surgery saw the patient yesterday (4) Metabolic acidosis: Code(s): E87.20 - Acidosis, unspecified Status: Acute Assessment and Plan: Bicarbonate level is better. Lactic acid level is normal. He is on a bicarb drip. Bicarbonate level is up to normal today. Will change to normal saline Subjective Date/time seen: 11/25/23 08:07 Interval history: the patient feels about the same. Still has a distended belly but not as tender as on admission. Eating okay. Exam Narrative: WDWN male in NAD skin no rash head ncat lungs clear bilaterally cor reg no rub or gallop abd BS+ soft but similarly distended compared to yesterday. Not very tender. Ostomy bag has yellow urine ext no edema or cyanosis Objective Data Vital Signs Vital Signs: Vital Signs - 24 hr 11/24/23 08:17 11/24/23 10:00 11/24/23 11:54 Temperature 97.2 F L Pulse Rate 91 94 95 Respiratory Rate 20 18 Blood Pressure 119/77 Pulse Oximetry 98 Oxygen Delivery Oxygen Flow Rate 11/24/23 12:00 11/24/23 12:00 11/24/23 14:42 Temperature Pulse Rate 91 81 Respiratory Rate 20 Blood Pressure Pulse Oximetry 98 Oxygen Delivery Nasal Cannula Oxygen Flow Rate 3 11/24/23 14:54 11/24/23 14:55 11/24/23 15:32 Temperature 97.5 F L Pulse Rate 87 91 Respiratory Rate 20 18 Blood Pressure 90/62 L Pulse Oximetry 95 93 Oxygen Delivery Nasal Cannula Oxygen Flow Rate 2 11/24/23 14:00 11/24/23 16:00 11/24/23 16:00 Temperature Pulse Rate 88 91 Respiratory Rate Blood Pressure Pulse Oximetry 93 Oxygen Delivery Nasal Cannula Oxygen Flow Rate 2 11/24/23 18:00 11/24/23 20:32 11/24/23 21:17 Temperature 97.8 F Pulse Rate 89 88 89 Respiratory Rate 16 20 Blood Pressure 101/64 Pulse Oximetry 96 Oxygen Delivery Oxygen Flow Rate 11/24/23 21:18 11/24/23 21:24 11/24/23 23:42 Temperature 97.7 F Pulse Rate 88 88 Respiratory Rate 20 16 Blood Pressure 103/65 Pulse Oximetry 92 95 Oxygen Delivery Nasal Cannula Oxygen Flow Rate 3 11/24/23 20:00 11/24/23 23:40 11/24/23 20:00 Temperature Pulse Rate 88 88 90 Respiratory Rate 16 16 Blood Pressure Pulse Oximetry 96 95 Oxygen Delivery Nasal Cannula Nasal Cannula Oxygen Flow Rate 3 3 11/24/23 22:00 11/25/23 00:00 11/25/23 01:46 Temperature Pulse Rate 89 87 82 Respiratory Rate Blood Pressure Pulse Oximetry Oxygen Delivery Oxygen Flow Rate 11/25/23 04:00 11/25/23 04:00 11/25/23 04:00 Temperature 97.7 F Pulse Rate 87 87 87 Respiratory Rate 16 16 Blood Pressure 92/66 L Pulse Oximetry 94 94 Oxygen Delivery Nasal Berry
[2023-11-25] MEDS: UMECLIDINIUM BROMIDE 62.5 MCG ELLIPTA 1 PUFF INHALATION (08:37)
[2023-11-25] MEDS: ALBUTEROL SULFATE NEB 2.5 MG/3 ML INH 5 MG INHALATION ×2 (08:37→20:31)
--- NOTE | 2023-11-25 09:23 | PC.NURSE ---
pt requests that no information be shared with his sister Yuliana Smith.
--- NOTE | 2023-11-25 09:35 | PM.PNGS ---
Progress Note: A&P Assessment and Plan (1) Ascites: Qualifiers: Ascites type: other type Qualified Code(s): R18.8 - Other ascites Code(s): R18.8 - Other ascites Status: Acute Assessment and Plan: Unclear etiology for ascites. Plan for paracentesis today and having fluid sent for creatinine. Concern for a urinary leak. Urology following. Initial cultures of peritoneal fluid from 11/20 grew E. coli. Continue antibiotics. (2) DELISA (acute kidney injury): Code(s): N17.9 - Acute kidney failure, unspecified Status: Acute Assessment and Plan: Creatinine up today with BUN still greater than 120. Urine output still low and appears to be declining. Nephrology planning to initiate hemodialysis and they have requested placement of temporary dialysis catheter. Description of the procedure, risks, benefits, alternatives, and expected outcomes were discussed with the patient in detail. He agrees to proceed. Dr. Conn or Dr. Champagne will try doing this at the bedside possibly later today. (3) Acute uremia: Code(s): N19 - Unspecified kidney failure Status: Acute (4) Active intravenous drug use: Code(s): F19.90 - Other psychoactive substance use, unspecified, uncomplicated Status: Chronic (5) Tobacco abuse disorder: Code(s): Z72.0 - Tobacco use Status: Chronic Plan I have discussed the patient's case and plan of care with Dr. Champagne. Subjective Subjective Date/Time Seen: 11/25/23 09:35 Patient reports: tolerating a regular diet, flatus and bowel movement Interval history: This is a 62-year-old man who was admitted with sepsis, ascites, and DELISA who we were consulted for peritonitis and loculated fluid collection. He was seen by Dr. Conn yesterday and recommendations or paracentesis, which is scheduled for today. Chart reviewed. DELISA and uremia is getting worse with urine output declining. Nephrology following and plan to initiate hemodialysis. They have requested that we place a temporary hemodialysis catheter. Patient seen with family at the bedside. He reports discomfort due to his abdominal distention and ascites. Exam Const: General: comfortable, no acute distress and awake GI: Inspection: distended and other (RLQ ileal conduit with scant yellow urine from urostomy) GI Palp: Yes Firmness to palpation present (GI), Yes Tenderness to palpation present (GI) (mild diffuse tenderness), No Guarding due to palpation present (GI) and Yes Ascites present Objective Data Vital Signs Vital Signs: Vital Signs - 24 hr 11/24/23 10:00 11/24/23 11:54 11/24/23 12:00 Temperature 97.2 F L Pulse Rate 94 95 91 Respiratory Rate 18 Blood Pressure 119/77 Pulse Oximetry 98 Oxygen Delivery Oxygen Flow Rate 11/24/23 12:00 11/24/23 14:42 11/24/23 14:54 Temperature Pulse Rate 81 87 Respiratory Rate 20 20 Blood Pressure Pulse Oximetry 98 Oxygen Delivery Nasal Cannula Oxygen Flow Rate 3 11/24/23 14:55 11/24/23 15:32 11/24/23 14:00 Temperature 97.5 F L Pulse Rate 91 88 Respiratory Rate 18 Blood Pressure 90/62 L Pulse Oximetry 95 93 Oxygen Delivery Nasal Cannula Oxygen Flow Rate 2 11/24/23 16:00 11/24/23 16:00 11/24/23 18:00 Temperature Pulse Rate 91 89 Respiratory Rate Blood Pressure Pulse Oximetry 93 Oxygen Delivery Nasal Cannula Oxygen Flow Rate 2 11/24/23 20:32 11/24/23 21:17 11/24/23 21:18 Temperature 97.8 F Pulse Rate 88 89 Respiratory Rate 16 20 Blood Pressure 101/64 Pulse Oximetry 96 92 Oxygen Delivery Nasal Cannula Oxygen Flow Rate 3 11/24/23 21:24 11/24/23 23:42 11/24/23 20:00 Temperature 97.7 F Pulse Rate 88 88 88 Respiratory Rate 20 16 16 Blood Pressure 103/65 Pulse Oximetry 95 96 Oxygen Delivery Nasal Cannula Oxygen Flow Rate 3 11/24/23 23:40 11/24/23 20:00 11/24/23 22:00 Temperature Pulse Rate 88 90 89 Respiratory Rate 16 Blood Pre
[2023-11-25] MEDS: NICOTINE (*PBKC) 21 MG PATCH 1 PATCH TRANSDERM (09:38)
[2023-11-25] MEDS: PANTOPRAZOLE 40 MG TABLET PO (09:38)
[2023-11-25] MEDS: SODIUM CHLORIDE 0.9% IV 1,000 ML 75 ML IV CONT ×2 (09:49→20:43)
--- NOTE | 2023-11-25 10:01 | WPDUROPN2 ---
Progress Note: A&P Assessment and Plan (1) Ascites: Qualifiers: Ascites type: other type Qualified Code(s): R18.8 - Other ascites Code(s): R18.8 - Other ascites Status: Acute Assessment and Plan: Unclear etiology of his ascites. It would be extremely rare to have spontaneous urine leak from ileoconduit or ureteral anastomosis 4 yrs after surgery. The peritoneal culture is growing Ecoli, but urine culture only shows sha. Planning for paracentesis today and will evaluate peritoneal fluid for creatinine. If peritoneal fluid Cr is same as serum Cr, then this is not a urine leak. If peritoneal fluid Cr is elevated beyond serum Cr, then he will need further evaluation of his urinary tract (likely loopogram and possible antegrade nephrostograms with IR) (2) DELISA (acute kidney injury): Code(s): N17.9 - Acute kidney failure, unspecified Status: Acute Assessment and Plan: Likely multifactorial. Recent hypotension, questionable PO intake before arrival, third-spacing fluids in setting of large volume ascites, and sepsis with Ecoli SBP. Has mild bilat hydro on recent imaging which is common after ileoconduit formation. Nephrology is on board. If other factors are rectified and if still having ARF, may need to consider nephrostomy tube placement. Retrograde stents are extremely difficult in setting of ileoconduit so would need nephrostomy tube placement with subsequent antegrade stents if concern for obstructive uropathy. (3) Acute uremia: Code(s): N19 - Unspecified kidney failure Status: Acute Assessment and Plan: BUN in the 120s presently (4) Active intravenous drug use: Code(s): F19.90 - Other psychoactive substance use, unspecified, uncomplicated Status: Chronic (5) Tobacco abuse disorder: Code(s): Z72.0 - Tobacco use Status: Chronic Subjective Subjective Date/Time Seen: 11/25/23 10:01 Interval history: Patsy is feeling well today. Still complains of abdominal bloating. No nausea, vomiting, fever, chills. Ileoconduit with output ofamber colored urine Review of Systems Review of Systems: All systems reviewed & are unremarkable except as noted in HPI and below Exam Narrative: General: Awake, alert, comfortable, no acute distress HEENT: Normocephalic, atraumatic, sclerae anicteric Respiratory: Normal respiratory effort, no accessory muscle use Abdomen: Distended : Ileoconduit with mica colored urine Skin: Normal coloration, warm and dry Neurologic: No focal neuro deficits noted Psychiatric: Appropriate mood and affect, judgment and insight intact Objective Data Vital Signs Vital Signs: Vital Signs - 24 hr 11/24/23 11:54 11/24/23 12:00 11/24/23 12:00 Temperature 97.2 F L Pulse Rate 95 91 Respiratory Rate 18 Blood Pressure 119/77 Pulse Oximetry 98 98 Oxygen Delivery Nasal Cannula Oxygen Flow Rate 3 11/24/23 14:42 11/24/23 14:54 11/24/23 14:55 Temperature Pulse Rate 81 87 Respiratory Rate 20 20 Blood Pressure Pulse Oximetry 95 Oxygen Delivery Nasal Cannula Oxygen Flow Rate 2 11/24/23 15:32 11/24/23 14:00 11/24/23 16:00 Temperature 97.5 F L Pulse Rate 91 88 Respiratory Rate 18 Blood Pressure 90/62 L Pulse Oximetry 93 93 Oxygen Delivery Nasal Cannula Oxygen Flow Rate 2 11/24/23 16:00 11/24/23 18:00 11/24/23 20:32 Temperature 97.8 F Pulse Rate 91 89 88 Respiratory Rate 16 Blood Pressure 101/64 Pulse Oximetry 96 Oxygen Delivery Oxygen Flow Rate 11/24/23 21:17 11/24/23 21:18 11/24/23 21:24 Temperature Pulse Rate 89 88 Respiratory Rate 20 20 Blood Pressure Pulse Oximetry 92 Oxygen Delivery Nasal Cannula Oxygen Flow Rate 3 11/24/23 23:42 11/24/23 20:00 11/24/23 23:40 Temperature 97.7 F Pulse Rate 88 88 88 Respiratory Rate 16 16 16 Blood Pressure 103/65 Pulse Oximetry 95 96 95 Oxygen Del
--- NOTE | 2023-11-25 10:02 | PCNFU ---
Nutrition Follow-Up Complete: Inadequate oral intake related to loss of appetite as evidenced by 0% intakes Goal: Improve PO intake to at least 50% meals and supplements - Progressing, intakes improved to 25-100%. Continue with same goals Pt current nutrition is Renal diet. Soft & bite sized L 6. Nepro BID for additional 420 kcal and 19 g protein. Nutrition recommendation: Last recorded weight is 91.8 kg. Bowel Motility: Last BM +1 11/25/23 Labs Reviewed: Hgb 12.6, Hct 36.9, Na 129, K+ 5.3, GFR 12, BUN >120, Cre 4.9, Glu 117 Meds Noted: Protonix, Vancomycin, flagyl, cefepime Skin: No pressure injuries Additional Notes: Intakes 25-100% last 48 hours, mostly 100%. Hemodialysis catheter is being placed to start dialysis. Monitoring intakes, labs, weights, plan of care Follow up in 3 days
--- NOTE | 2023-11-25 13:31 | PCOTNOTE ---
Attempted to see pt. for occupational therapy evaluation. Pt. preparing to leave for procedure shortly, and reportedly had difficulty with mobilization during PT evaluation. Pt. agreeable to participate tomorrow in hopes that procedure will increase tolerance for out of bed activity. Following.
--- NOTE | 2023-11-25 14:07 | PM.IMPN ---
Progress Note: A&P Assessment and Plan (1) Sepsis: Qualifiers: Acute renal failure type: unspecified Sepsis acute organ dysfunction status: with acute organ dysfunction Sepsis type: sepsis due to unspecified organism Severe sepsis acute organ dysfunction type: acute renal failure Severe sepsis shock status: without septic shock Qualified Code(s): A41.9 - Sepsis, unspecified organism; R65.20 - Severe sepsis without septic shock; N17.9 - Acute kidney failure, unspecified Code(s): A41.9 - Sepsis, unspecified organism Status: Acute Assessment and Plan: Patient has sepsis due to EColi associated SBP. Patient afebrile but WBC 26K. Lactic acid was 3.7 CT Abd/Pelvis - moderate ascites with nonspecific stranding and paracentesis recommended BCx 11/19: NGTD Paracentesis 11/20: removed 550mL yellow, cloudy fluid with WBC 2700 with 90% neutrophils. Paracentesis Cx: EColi that is pansensitive UA on 11/20/23: 3+ blood, >100RBC, 51-100 WBC and 3+ LE. UCx 11/19 and 11/21 grew Hilda (probably a contaminant or colonizer) BCx 11/21 NGTD Abd US showing multilocular prominent ascites. Possibly patient with micro-bowel perf with SBP but consider leaking urinary system GenSurg consulted and appreciate their input Started on cefepime and Vanco (11/21 at 3am). Flagyl added (11/21 at 640pm) WBC 28K today. No fevers. Clinically better and he fells better. Continue cefepime and Flagyl for now. Stop Vanco. Repeat paracentesis ordered. Follow WBC. (2) DEILSA (acute kidney injury): Code(s): N17.9 - Acute kidney failure, unspecified Status: Acute Assessment and Plan: Patient denies underlying CKD. Cr 5.5 with BUN 160 on original admission and improved to 4.[address] Abd/Pelvis showing s/p prostatectomy, cystectomy with ileal conduit. There is fluid in the ileal conduit and mild hydrourteronephrosis which is not uncommon. Patient signed out against medical advise and returned overnight. Repeat Cr this admission was 5.1 with BUN 156. Potassium 5.5 with Bicarb level 15 and AG 16. Suspect metabolic gap and nongap acidosis related to DELISA and ileal conduit. Started on sodium bicarb drip Cr worse at 4.9 but Bicarb normal now. UOP better but still not adequate. Etiology unclear but consider ATN from sepsis, HoTN, post-obstructive process, acute GN, HepC related, related to IV drug use or urinary leakage into the abd cavity Nephrology consulted. Abd US showing moderate bilateral hydronephrosis felt to be chronic Dialysis being planned now (3) SBP (spontaneous bacterial peritonitis): Code(s): K65.2 - Spontaneous bacterial peritonitis Status: Acute Assessment and Plan: CT abdomen showing no obvious cirrhosis but does show ascites. Echo showing EF>70%, normal LV with Grade I diastolic dysfunction He has known HepC. Path from ascitic fluid showing marked acute inflammation but no malignancy. Ammonia <9. Abd US showing hepatic cyst, normal spleen size and sludge in GB. Repeat paracentesis ordered; check urine Cr in paracentesis fluid As above. (4) Hypotension arterial: Qualifiers: Hypotension type: unspecified hypotension type Qualified Code(s): I95.9 - Hypotension, unspecified Code(s): I95.9 - Hypotension, unspecified Status: Acute Assessment and Plan: Patient's BP 76/56 on this admission. BP low last admission as well. Related to sepsis. Treated with IV fluids. Systolic BP running 90-110. Amlodipine on hold. Follow (5) Colitis: Code(s): K52.9 - Noninfective gastroenteritis and colitis, unspecified Status: Acute Assessment and Plan: Last admission, CT Abd/pelvis showing air-fluid levels t/o the small bowel but not felt to be obstructive process. Some wall thickening along the sigmoid c/w colitis. CDiff was negative. Patient with abd pain related to colitis and/or SBP. KUB showing slightly dilated SB but no obstruction. Started
[2023-11-25 14:57] LABS: Toxigenic C. Diff NEGATIVE (NEGATIVE)
--- NOTE | 2023-11-25 15:17 | PC.NURSE ---
Dr. Pederson aware that patient is not getting his temporary dialysis catheter until tomorrow per Dr. Conn
--- NOTE | 2023-11-25 15:21 | PC.NURSE ---
Dr. Min aware pt will get dialysis catheter placed tomorrow 11/25
[2023-11-25 16:22] LABS: Appearance Peritoneal Fluid Hazy (Clear); Color Peritoneal Fluid Other (Colorless); Source Peritoneal Fluid Peritoneal Fluid
[2023-11-25 16:26] LABS: Nucleated Cells Peritoneal Flu 1122 /uL (0-500); RBC Peritoneal Fluid 6000 /uL (0-10000)
[2023-11-25 16:41] LABS: Lymphocytes Peritoneal Fluid 11 %; Monocytes Peritoneal Fluid 2 %; Neutrophils Peritoneal Fluid 84 % (0-25)
[2023-11-26] VITALS (23 sets, daily range): BP systolic 95–139; BP diastolic 59–88; PULSE 79–104; RESP 18–28; TEMP 36.4–36.6; O2SAT 93–100
[2023-11-26] MEDS: CEFEPIME 1 GM/NS 50 ML 1 GM/50 ML BAG IVPB (02:02)
[2023-11-26 04:18] LABS: Hematocrit 35.6 % (42.0-52.0); Hemoglobin 11.8 g/dL (14.0-18.0); Mean Corpuscular HGB Conc 33.1 g/dl (32-36); Mean Corpuscular Volume 84.4 fl (80-100); Mean Platelet Volume 11.7 fl (7.4-10.4); Platelet Count Result 376 k/mm3 (150-375); Red Blood Count 4.22 M/mm3 (4.6-6.20); Red Cell Distribution Width 14.6 % (11.5-14.5); White Blood Count 23.8 K/mm3 (4.5-10.0)
[2023-11-26 04:43] LABS: Albumin Level 2.5 g/dL (3.5-5.1); Anion Gap 13 mmol/L (4-12); Calcium 7.8 mg/dL (8.4-10.2); Carbon Dioxide 19 mmol/L (22-30); Chloride 99 mmol/L (98-107); Estimated CRCL calculation 20 ml/min; Estimated Glomerular Filt Rate 16; Glucose 85 mg/dL (65-110); Phosphorus 6.4 mg/dL (2.5-4.5); Potassium 3.7 mmol/L (3.4-5.0); Sodium 131 mmol/L (137-145)
[2023-11-26 05:19] LABS: Blood Urea Nitrogen 133 mg/dL (9-20)
[2023-11-26] MEDS: metroNIDAZOLE 500 MG TABLET PO ×3 (05:37→22:24)
--- NOTE | 2023-11-26 07:37 | PM.PNNEP ---
Progress Note: A&P Assessment and Plan (1) DELISA (acute kidney injury): Code(s): N17.9 - Acute kidney failure, unspecified Status: Acute Assessment and Plan: The patient has a acute kidney injury. CT does not show significant hydronephrosis. He has a urostomy so there is always going to be a little bit of dilatation of the pelvic system. So I do not think there is obstruction. fractional excretion of urea does show pre renal azotemia. Total CPK is okay UA shows blood and white cells. Most likely his acute kidney injury is due to hypotension, sepsis, UTI. less likely GN. he is getting IV fluids. BUN and creatinine are both down but his urine output is still [id number] per day. At least 600cc per day as necessary to clear enough kidney poisons. Most likely the reduction in BUN and creatinine are delusional. I think we are best to go ahead and do dialysis a couple treatments in a row and then reassess for recovery after that. long discussion with the patient. I can not guarantee that he will be ready for discharge on Saturday. Unfortunately his disease processes take a while to improve. Will discuss with Dr. Conn (2) Colitis: Code(s): K52.9 - Noninfective gastroenteritis and colitis, unspecified Status: Acute Assessment and Plan: Patient has thickened sigmoid colon. Colitis may be causing his abdominal pain plus the ascites. (3) SBP (spontaneous bacterial peritonitis): Code(s): K65.2 - Spontaneous bacterial peritonitis Status: Acute Assessment and Plan: cultures of the fluid shows E coli. This is pansensitive. He is on antibiotics. Surgery is following the patient for this. (4) Metabolic acidosis: Code(s): E87.20 - Acidosis, unspecified Status: Acute Assessment and Plan: Bicarbonate level is back to 19. Now on normal saline. Will check another bicarb tomorrow Subjective Date/time seen: 11/26/23 07:37 Interval history: patient is alert. He feels about the same. I am going home on Saturday Exam Narrative: WDWN male in NAD skin no rash head ncat lungs clear bilaterally cor reg no rub or gallop abd BS+ minimally tender. Still distended. ext no edema or cyanosis Objective Data Vital Signs Vital Signs: Vital Signs - 24 hr 11/25/23 08:38 11/25/23 08:38 11/25/23 08:56 Temperature Pulse Rate 78 92 Respiratory Rate 20 20 Blood Pressure Pulse Oximetry 93 Oxygen Delivery Nasal Cannula Oxygen Flow Rate 3 11/25/23 08:00 11/25/23 08:00 11/25/23 10:00 Temperature Pulse Rate 92 93 Respiratory Rate Blood Pressure Pulse Oximetry 90 Oxygen Delivery Nasal Cannula Oxygen Flow Rate 3 11/25/23 11:10 11/25/23 11:55 11/25/23 12:00 Temperature 98.2 F Pulse Rate 68 Respiratory Rate 18 Blood Pressure 97/69 L Pulse Oximetry 93 93 Oxygen Delivery Nasal Cannula Nasal Cannula Oxygen Flow Rate 3 3 11/25/23 12:00 11/25/23 14:00 11/25/23 15:54 Temperature 97.7 F Pulse Rate 94 91 85 Respiratory Rate 18 Blood Pressure 97/63 L Pulse Oximetry 94 Oxygen Delivery Oxygen Flow Rate 11/25/23 16:00 11/25/23 16:00 11/25/23 18:00 Temperature Pulse Rate 95 96 Respiratory Rate Blood Pressure Pulse Oximetry 92 Oxygen Delivery Nasal Cannula Oxygen Flow Rate 3 11/25/23 19:48 11/25/23 20:33 11/25/23 20:34 Temperature 97.6 F Pulse Rate 92 76 Respiratory Rate 16 20 Blood Pressure 103/64 Pulse Oximetry 98 93 Oxygen Delivery Nasal Cannula Oxygen Flow Rate 3 11/25/23 20:40 11/25/23 20:00 11/25/23 20:00 Temperature Pulse Rate 82 96 Respiratory Rate 20 Blood Pressure Pulse Oximetry 93 Oxygen Delivery Nasal Cannula Oxygen Flow Rate 2 11/25/23 22:00 11/25/23 23:41 11/26/23 00:00 Temperature 97.6 F Pulse Rate 87 89 86 Respiratory Rate 16 Blood Pressure 103/67 Pulse O
[2023-11-26] MEDS: ALBUTEROL SULFATE NEB 2.5 MG/3 ML INH 5 MG INHALATION ×3 (08:30→20:45)
[2023-11-26] MEDS: UMECLIDINIUM BROMIDE 62.5 MCG ELLIPTA 1 PUFF INHALATION (08:31)
[2023-11-26] MEDS: NICOTINE (*PBKC) 21 MG PATCH 1 PATCH TRANSDERM (08:41)
[2023-11-26] MEDS: PANTOPRAZOLE 40 MG TABLET PO (08:41)
[2023-11-26 11:19] LABS: Creatinine Urine 22.1 mg/dL
[2023-11-26] MEDS: SODIUM CHLORIDE 0.9% IV 1,000 ML 75 ML IV CONT (12:03)
[2023-11-26] MEDS: HYDROcodone/acetaminophen (*CRX) 5-325 MG TABLET 1 TAB PO ×2 (13:19→20:38)
--- NOTE | 2023-11-26 13:51 | PCPTNOTE ---
Attempted therapy session at 11:40am, Pt refused due to receiving lunch.
--- NOTE | 2023-11-26 14:59 | PM.IMPN ---
Progress Note: A&P Assessment and Plan (1) Sepsis: Qualifiers: Acute renal failure type: unspecified Sepsis acute organ dysfunction status: with acute organ dysfunction Sepsis type: sepsis due to unspecified organism Severe sepsis acute organ dysfunction type: acute renal failure Severe sepsis shock status: without septic shock Qualified Code(s): A41.9 - Sepsis, unspecified organism; R65.20 - Severe sepsis without septic shock; N17.9 - Acute kidney failure, unspecified Code(s): A41.9 - Sepsis, unspecified organism Status: Acute Assessment and Plan: Patient has sepsis due to EColi associated SBP. Patient afebrile but WBC 26K. Lactic acid was 3.7 CT Abd/Pelvis - moderate ascites with nonspecific stranding and paracentesis recommended BCx 11/19: NGTD Paracentesis 11/20: removed 550mL yellow, cloudy fluid with WBC 2700 with 90% neutrophils. Paracentesis Cx: EColi that is pansensitive UA on 11/20/23: 3+ blood, >100RBC, 51-100 WBC and 3+ LE. UCx 11/19 and 11/21 grew Hilda (probably a contaminant or colonizer) BCx 11/21 NGTD Abd US showing multilocular prominent ascites. Possibly patient with micro-bowel perf with SBP or consider leaking urinary system GenSurg and Uroogy consulted and appreciate their input Started on cefepime and Vanco (11/21 at 3am). Flagyl added (11/21 at 640pm) WBC trending down at 23.8K today. No fevers. Clinically better and he fells better. Repeat paracentesis 11/24 with 3300mL removed: RBC 6000, WBC 1122, 84% neutrophils. No organisms on gram stain. Was informed that the Peritoneal Cr high at 22. Urology aware Continue cefepime and Flagyl. Stop Vanco. Follow WBC. Will need to consider fungal peritonitis given the possibility of a leaking urinary diversion (2) DELISA (acute kidney injury): Code(s): N17.9 - Acute kidney failure, unspecified Status: Acute Assessment and Plan: Patient denies underlying CKD. Cr 5.5 with BUN 160 on original admission and improved to 4.[address] Abd/Pelvis showing s/p prostatectomy, cystectomy with ileal conduit. There is fluid in the ileal conduit and mild hydrourteronephrosis which is not uncommon. Patient signed out against medical advise and returned overnight. Repeat Cr this admission was 5.1 with BUN 156. Potassium 5.5 with Bicarb level 15 and AG 16. Suspect metabolic gap and nongap acidosis related to DELISA and ileal conduit. Started on sodium bicarb drip but changed to NS once serum bicarb improved Etiology unclear but consider ATN from sepsis, HoTN, post-obstructive process, acute GN, HepC related, related to IV drug use Cr could be elevated related to urinary leakage into the abd cavity Nephrology consulted. Abd US showing moderate bilateral hydronephrosis felt to be chronic Renal function better with Cr 3.9 and BUN 133 but UOP still poor. Unclear if all UOP is being captured in the documentation Dialysis being considered (3) SBP (spontaneous bacterial peritonitis): Code(s): K65.2 - Spontaneous bacterial peritonitis Status: Acute Assessment and Plan: CT abdomen showing no obvious cirrhosis but does show ascites. Echo showing EF>70%, normal LV with Grade I diastolic dysfunction He has known HepC. Path from ascitic fluid showing marked acute inflammation but no malignancy. Ammonia <9. Abd US showing hepatic cyst, normal spleen size and sludge in GB. Repeat paracentesis as above Ascites probably urine with peritoneal Cr 22. Continue treatment for EColi SBP and will need to cover for fungal peritonitis. As above. (4) Hypotension arterial: Qualifiers: Hypotension type: unspecified hypotension type Qualified Code(s): I95.9 - Hypotension, unspecified Code(s): I95.9 - Hypotension, unspecified Status: Acute Assessment and Plan: Patient's BP 76/56 on this admission. BP low last admission as well. Related to sepsis. Treated with IV fluids. Systolic BP running mostly 90-11
--- NOTE | 2023-11-26 15:12 | WPDUROPN2 ---
Progress Note: A&P Assessment and Plan (1) Ascites: Qualifiers: Ascites type: other type Qualified Code(s): R18.8 - Other ascites Code(s): R18.8 - Other ascites Status: Acute Assessment and Plan: Peritoneal fluid creatinine: 22 -> suggest possible intraperitoneal urine leak / urinary ascites. This could explain not only ascites but also uremia. Will start evaluation with loop-o-gram. Leak from conduit would be the most likely etiology. (2) DELISA (acute kidney injury): Code(s): N17.9 - Acute kidney failure, unspecified Status: Acute (3) Acute uremia: Code(s): N19 - Unspecified kidney failure Status: Acute (4) Active intravenous drug use: Code(s): F19.90 - Other psychoactive substance use, unspecified, uncomplicated Status: Chronic (5) Tobacco abuse disorder: Code(s): Z72.0 - Tobacco use Status: Chronic Subjective Subjective Date/Time Seen: 11/26/23 15:12 Interval history: Comfortable, no complaints Review of Systems Review of Systems: All systems reviewed & are unremarkable except as noted in HPI and below Exam Const: General: no acute distress Resp: Effort & Inspection: normal respiratory effort GI: Inspection: distended GI Palp: No abdominal tenderness and No Guarding due to palpation present (GI) Auscultation: normal bowel sounds Objective Data Vital Signs Vital Signs: Vital Signs - 24 hr 11/25/23 15:54 11/25/23 16:00 11/25/23 16:00 Temperature 97.7 F Pulse Rate 85 95 Respiratory Rate 18 Blood Pressure 97/63 L Pulse Oximetry 94 92 Oxygen Delivery Nasal Cannula Oxygen Flow Rate 3 Fraction of Inspired Oxygen 11/25/23 18:00 11/25/23 19:48 11/25/23 20:33 Temperature 97.6 F Pulse Rate 96 92 76 Respiratory Rate 16 20 Blood Pressure 103/64 Pulse Oximetry 98 Oxygen Delivery Oxygen Flow Rate Fraction of Inspired Oxygen 11/25/23 20:34 11/25/23 20:40 11/25/23 20:00 Temperature Pulse Rate 82 Respiratory Rate 20 Blood Pressure Pulse Oximetry 93 93 Oxygen Delivery Nasal Cannula Nasal Cannula Oxygen Flow Rate 3 2 Fraction of Inspired Oxygen 11/25/23 20:00 11/25/23 22:00 11/25/23 23:41 Temperature 97.6 F Pulse Rate 96 87 89 Respiratory Rate 16 Blood Pressure 103/67 Pulse Oximetry 94 Oxygen Delivery Oxygen Flow Rate Fraction of Inspired Oxygen 11/26/23 00:00 11/26/23 00:00 11/26/23 02:00 Temperature Pulse Rate 86 94 Respiratory Rate Blood Pressure Pulse Oximetry 93 Oxygen Delivery Nasal Cannula Oxygen Flow Rate 2 Fraction of Inspired Oxygen 11/26/23 04:00 11/26/23 04:00 11/26/23 04:00 Temperature 97.5 F L Pulse Rate 92 92 Respiratory Rate 18 Blood Pressure 103/71 Pulse Oximetry 95 93 Oxygen Delivery Nasal Cannula Oxygen Flow Rate 2 Fraction of Inspired Oxygen 11/26/23 06:00 11/26/23 08:00 11/26/23 08:33 Temperature 97.5 F L Pulse Rate 93 99 99 Respiratory Rate 20 18 Blood Pressure 139/88 Pulse Oximetry 94 Oxygen Delivery Oxygen Flow Rate Fraction of Inspired Oxygen 11/26/23 08:34 11/26/23 09:27 11/26/23 08:00 Temperature Pulse Rate 99 Respiratory Rate Blood Pressure Pulse Oximetry 94 Oxygen Delivery Nasal Cannula Nasal Cannula Oxygen Flow Rate 3 1 Fraction of Inspired Oxygen 11/26/23 08:00 11/26/23 10:00 11/26/23 12:00 Temperature 97.8 F Pulse Rate 94 95 Respiratory Rate 28 H Blood Pressure 96/74 L Pulse Oximetry 100 95 Oxygen Delivery Nasal Cannula Oxygen Flow Rate 1 Fraction of Inspired Oxygen 100 11/26/23 12:00 11/26/23 12:00 11/26/23 13:54 Temperature Pulse Rate 96 Respiratory Rate Blood Pressure Pulse Oximetry 95 97 Oxygen Delivery Room Air Room Air Oxygen Flow Rate Fraction of Inspired Oxygen 11/26/23 13:56 11/26/23 08:40 11/26/23 14:03 Temperature Pulse
[2023-11-26] MEDS: FLUCONAZOLE 400 MG/NACL 200 ML 400 MG/200 ML BAG 100 MG IVPB (17:35)
[2023-11-26] MEDS: hydrOXYzine HCL 25 MG TABLET PO (17:41)
[2023-11-26] MEDS: HEPARIN SODIUM 5,000 UNITS/ML VIAL 5000 UNITS SUB-Q (20:38)
[2023-11-26] MEDS: LORazepam INJ (*CRX) 2 MG/ML VIAL 1 MG IV PUSH (20:39)
[2023-11-27] VITALS (31 sets, daily range): BP systolic 78–120; BP diastolic 50–76; PULSE 79–113; RESP 16–28; TEMP 35.5–36.5; O2SAT 88–100
[2023-11-27] MEDS: ACETAMINOPHEN 325 MG TABLET 650 MG PO ×2 (00:56→18:46)
[2023-11-27] MEDS: hydrOXYzine HCL 25 MG TABLET PO ×2 (01:23→13:08)
[2023-11-27] MEDS: ALBUTEROL SULFATE NEB 2.5 MG/3 ML INH 5 MG INHALATION ×4 (02:02→20:42)
[2023-11-27] MEDS: CEFEPIME 1 GM/NS 50 ML 1 GM/50 ML BAG IVPB (02:38)
[2023-11-27 04:12] LABS: Mean Corpuscular HGB Conc 33.3 g/dl (32-36); Mean Corpuscular Hemoglobin 28.3 pg (26-34); Mean Corpuscular Volume 84.9 fl (80-100); Mean Platelet Volume 12.1 fl (7.4-10.4); Platelet Count Result 396 k/mm3 (150-375); Red Blood Count 4.24 M/mm3 (4.6-6.20); Red Cell Distribution Width 14.9 % (11.5-14.5); White Blood Count 22.1 K/mm3 (4.5-10.0)
[2023-11-27 04:21] LABS: Albumin Level 3.2 g/dL (3.5-5.1); Anion Gap 17 mmol/L (4-12); Calcium 8.3 mg/dL (8.4-10.2); Carbon Dioxide 16 mmol/L (22-30); Chloride 98 mmol/L (98-107); Estimated CRCL calculation 19 ml/min; Estimated Glomerular Filt Rate 15; Glucose 88 mg/dL (65-110); Phosphorus 7.1 mg/dL (2.5-4.5); Potassium 3.8 mmol/L (3.4-5.0); Sodium 131 mmol/L (137-145)
[2023-11-27 04:46] LABS: Blood Urea Nitrogen 136 mg/dL (9-20)
[2023-11-27] MEDS: SODIUM CHLORIDE 0.9% IV 1,000 ML 75 ML IV CONT ×2 (05:17→18:47)
[2023-11-27] MEDS: metroNIDAZOLE 500 MG TABLET PO ×3 (05:18→21:43)
--- NOTE | 2023-11-27 06:23 | WPDUROPN2 ---
Progress Note: A&P Assessment and Plan (1) Urine ascites: Code(s): R18.8 - Other ascites Status: Acute Assessment and Plan: Ileal loop-o-gram show urine intraperitoneal urine leak that appears to originate from right ureteral-ileal anastamosis. Will ask radiology to place right percutaneous nephrostomy today to divert urine. Will need transfer/referral back to [facility] for reconstruction. Prior surgery done by Dr. Jose Sanchez in 10/2019. Subjective Subjective Date/Time Seen: 11/27/23 06:23 Interval history: Reports abdominal pressure Anxious to go home Review of Systems Review of Systems: All systems reviewed & are unremarkable except as noted in HPI and below Exam Const: General: no acute distress Resp: Effort & Inspection: normal respiratory effort GI: Inspection: distended GI Palp: No abdominal tenderness and No Guarding due to palpation present (GI) Auscultation: normal bowel sounds Objective Data Vital Signs Vital Signs: Vital Signs - 24 hr 11/26/23 08:00 11/26/23 08:33 11/26/23 08:34 Temperature 97.5 F L Pulse Rate 99 99 Respiratory Rate 20 18 Blood Pressure 139/88 Pulse Oximetry 94 94 Oxygen Delivery Nasal Cannula Oxygen Flow Rate 3 Fraction of Inspired Oxygen 11/26/23 09:27 11/26/23 08:00 11/26/23 08:00 Temperature Pulse Rate 99 Respiratory Rate Blood Pressure Pulse Oximetry 100 Oxygen Delivery Nasal Cannula Nasal Cannula Oxygen Flow Rate 1 1 Fraction of Inspired Oxygen 100 11/26/23 10:00 11/26/23 12:00 11/26/23 12:00 Temperature 97.8 F Pulse Rate 94 95 Respiratory Rate 28 H Blood Pressure 96/74 L Pulse Oximetry 95 95 Oxygen Delivery Room Air Oxygen Flow Rate Fraction of Inspired Oxygen 11/26/23 12:00 11/26/23 13:54 11/26/23 13:56 Temperature Pulse Rate 96 101 H Respiratory Rate 18 Blood Pressure Pulse Oximetry 97 Oxygen Delivery Room Air Oxygen Flow Rate Fraction of Inspired Oxygen 11/26/23 08:40 11/26/23 14:03 11/26/23 14:00 Temperature Pulse Rate 104 H 99 98 Respiratory Rate 18 18 Blood Pressure Pulse Oximetry Oxygen Delivery Oxygen Flow Rate Fraction of Inspired Oxygen 11/26/23 15:00 11/26/23 16:00 11/26/23 16:00 Temperature Pulse Rate 100 Respiratory Rate Blood Pressure Pulse Oximetry 96 100 Oxygen Delivery Nasal Cannula Nasal Cannula Oxygen Flow Rate 1 1 Fraction of Inspired Oxygen 100 100 11/26/23 16:00 11/26/23 18:00 11/26/23 19:38 Temperature 97.5 F L 97.7 F Pulse Rate 79 93 96 Respiratory Rate 24 H 23 H Blood Pressure 95/65 L 107/62 Pulse Oximetry 98 94 Oxygen Delivery Oxygen Flow Rate Fraction of Inspired Oxygen 11/26/23 20:45 11/26/23 20:53 11/26/23 20:45 Temperature Pulse Rate 87 89 87 Respiratory Rate 26 H 24 H Blood Pressure Pulse Oximetry 93 Oxygen Delivery Room Air Oxygen Flow Rate Fraction of Inspired Oxygen 11/26/23 20:00 11/26/23 20:00 11/26/23 22:00 Temperature Pulse Rate 97 90 Respiratory Rate Blood Pressure Pulse Oximetry 99 Oxygen Delivery Nasal Cannula Oxygen Flow Rate 1 Fraction of Inspired Oxygen 11/26/23 23:35 11/27/23 00:00 11/27/23 00:00 Temperature 97.7 F Pulse Rate 97 91 Respiratory Rate 22 H Blood Pressure 120/59 L Pulse Oximetry 100 98 Oxygen Delivery Room Air Oxygen Flow Rate Fraction of Inspired Oxygen 11/27/23 02:02 11/27/23 02:10 11/27/23 05:18 Temperature 97.6 F Pulse Rate 93 89 96 Respiratory Rate 26 H 26 H 22 H Blood Pressure 112/67 Pulse Oximetry 100 Oxygen Delivery Oxygen Flow Rate Fraction of Inspired Oxygen 11/27/23 02:00 11/27/23 04:00 11/27/23 04:00 Temperature Pulse Rate 91 92 Respiratory Rate Blood Pressure Pulse Oximetry 96 Oxygen Delivery Room Air Oxygen Flow Rate Fraction of Inspired Oxygen 11/27/23 06:
[2023-11-27] MEDS: NICOTINE (*PBKC) 21 MG PATCH 1 PATCH TRANSDERM (07:49)
[2023-11-27] MEDS: HYDROcodone/acetaminophen (*CRX) 5-325 MG TABLET 1 TAB PO (07:50)
[2023-11-27] MEDS: PANTOPRAZOLE 40 MG TABLET PO (07:50)
[2023-11-27] MEDS: UMECLIDINIUM BROMIDE 62.5 MCG ELLIPTA 1 PUFF INHALATION (07:51)
--- NOTE | 2023-11-27 08:17 | P.PNNP_ITS ---
Progress Note: A&P Assessment and Plan (1) DELISA (acute kidney injury): Code(s): N17.9 - Acute kidney failure, unspecified Status: Acute Assessment and Plan: * presumed to be acute * last labs I could find are from October 2022 -- creatinine normal at that time * evaluation to date: * imaging (U/S + CT) with hydronephrosis (but suspect chronic...present on imaging as far back as 2019) * ileo-loopogram with intraperitoneal urine leak * FeUrea consistent with pre-renal azotemia * CPK okay * UA suggestive of infection * suspect insult due to a combo of intraperitoneal urine leak + hypotension + sepsis/infection * Urology recommendations noted -- plan right nephrostomy tube placement (to divert urine flow) with eventual need for surgical reconstruction of ureteral- lleal anastomosis by original urologist * still remains at risk for renal replacement therapy/dialysis... * will see how he responds to urinary diversion and further interventions * follow trend of repeat labs and urine output (2) Sepsis: Qualifiers: Acute renal failure type: unspecified Sepsis acute organ dysfunction status: with acute organ dysfunction Sepsis type: sepsis due to unspecified organism Severe sepsis acute organ dysfunction type: acute renal failure Severe sepsis shock status: without septic shock Qualified Code(s): A41.9 - Sepsis, unspecified organism; R65.20 - Severe sepsis without septic shock; N17.9 - Acute kidney failure, unspecified Code(s): A41.9 - Sepsis, unspecified organism Status: Acute Assessment and Plan: * as noted by hypotension, elevated WBC, lactic acidosis on admission * suspected source is spontaneous bacterial peritonitis secondary to intraperitoneal urinary leak +/- UTI * s/p paracentesis on 11/20, 11/24, and again later today * culture data noted * on antibiotics and antifungal therapy * follow WBC trend (3) Acute hyperkalemia: Code(s): E87.5 - Hyperkalemia Status: Acute Assessment and Plan: * as noted on admission * better s/p medical therapy and current interventions * follow trend (4) Hypotension: Code(s): I95.9 - Hypotension, unspecified Status: Acute Assessment and Plan: * 70s systolic on admission * thought to be related to #2 * s/p IVFs with improvement in systolic BP * BP medications on hold * follow trend of hemodynamics (5) SBP (spontaneous bacterial peritonitis): Code(s): K65.2 - Spontaneous bacterial peritonitis Status: Acute Assessment and Plan: * as noted by ascites fluid analysis and culture * on antibiotic therapy * presumed source of #2 * likely secondary to intraperitoenal urinary leak (as noted by recent imaging) * Urology and Surgery following (6) Metabolic acidosis: Code(s): E87.20 - Acidosis, unspecified Status: Acute Assessment and Plan: * partly related to lactic acidosis along with DELISA/ARF * CO2 dropping again * will start oral bicarbonate but if worsens, consider changing IVFs to bicarb gtt Will continue to follow. Subjective Date/time seen: 11/27/23 08:17 Interval history: Follow-up for acute kidney injury/acute renal failure. Chart reviewed -- assuming care from Dr. Min; s/p ileo-loopogram yesterday afternoon that demonstrated intraperitoneal urine leak from right ureteral-ileal anastamosis; right nephrostomy tube placement ordered today by Urology to divert urine from abdominal cavity; renal function remains relatively unchanged with subopt
--- NOTE | 2023-11-27 08:17 | PM.PNNEP ---
Progress Note: A&P Assessment and Plan (1) DELISA (acute kidney injury): Code(s): N17.9 - Acute kidney failure, unspecified Status: Acute Assessment and Plan: presumed to be acute last labs I could find are from October 2022 -- creatinine normal at that time evaluation to date: imaging (U/S + CT) with hydronephrosis (but suspect chronic...present on imaging as far back as 2019) ileo-loopogram with intraperitoneal urine leak FeUrea consistent with pre-renal azotemia CPK okay UA suggestive of infection suspect insult due to a combo of intraperitoneal urine leak + hypotension + sepsis/infection Urology recommendations noted -- plan right nephrostomy tube placement (to divert urine flow) with eventual need for surgical reconstruction of ureteral-lleal anastomosis by original urologist still remains at risk for renal replacement therapy/dialysis... will see how he responds to urinary diversion and further interventions follow trend of repeat labs and urine output (2) Sepsis: Qualifiers: Acute renal failure type: unspecified Sepsis acute organ dysfunction status: with acute organ dysfunction Sepsis type: sepsis due to unspecified organism Severe sepsis acute organ dysfunction type: acute renal failure Severe sepsis shock status: without septic shock Qualified Code(s): A41.9 - Sepsis, unspecified organism; R65.20 - Severe sepsis without septic shock; N17.9 - Acute kidney failure, unspecified Code(s): A41.9 - Sepsis, unspecified organism Status: Acute Assessment and Plan: as noted by hypotension, elevated WBC, lactic acidosis on admission suspected source is spontaneous bacterial peritonitis secondary to intraperitoneal urinary leak +/- UTI s/p paracentesis on 11/20, 11/24, and again later today culture data noted on antibiotics and antifungal therapy follow WBC trend (3) Acute hyperkalemia: Code(s): E87.5 - Hyperkalemia Status: Acute Assessment and Plan: as noted on admission better s/p medical therapy and current interventions follow trend (4) Hypotension: Code(s): I95.9 - Hypotension, unspecified Status: Acute Assessment and Plan: 70s systolic on admission thought to be related to #2 s/p IVFs with improvement in systolic BP BP medications on hold follow trend of hemodynamics (5) SBP (spontaneous bacterial peritonitis): Code(s): K65.2 - Spontaneous bacterial peritonitis Status: Acute Assessment and Plan: as noted by ascites fluid analysis and culture on antibiotic therapy presumed source of #2 likely secondary to intraperitoenal urinary leak (as noted by recent imaging) Urology and Surgery following (6) Metabolic acidosis: Code(s): E87.20 - Acidosis, unspecified Status: Acute Assessment and Plan: partly related to lactic acidosis along with DELISA/ARF CO2 dropping again will start oral bicarbonate but if worsens, consider changing IVFs to bicarb gtt Will continue to follow. Subjective Date/time seen: 11/27/23 08:17 Interval history: Follow-up for acute kidney injury/acute renal failure. Chart reviewed -- assuming care from Dr. Min; s/p ileo-loopogram yesterday afternoon that demonstrated intraperitoneal urine leak from right ureteral-ileal anastamosis; right nephrostomy tube placement ordered today by Urology to divert urine from abdominal cavity; renal function remains relatively unchanged with suboptimal urine output in association with worsening metabolic acidosis; will likely need surgical reconstruction of ureteral-ileal anastomosis. Exam Narrative: General: somewhat ill-appearing male in NAD Heart: normal S1 and S2; no rub Lungs: clear to auscultation Abdomen: soft, nontender, + distension, positive bowel sounds Extremities: no cyanosis or clubbing; no edema Skin: warm and dry Objective Data Vital Signs Vital Signs:
--- NOTE | 2023-11-27 08:34 | PCOTNOTE ---
The patient treatment was not able to be completed. Patient reported he is feeling to anxious and had had a panic attack last night. Patient stated he will be having a procedure this morning. Will plan to continue treatment per plan of care.
[2023-11-27 08:39] LABS: INR 1.3; Prothrombin Time 16.3 Seconds (11.1-14.7)
[2023-11-27 08:40] LABS: Partial Thromboplastin Time 32.3 Seconds (22.3-36.8)
--- NOTE | 2023-11-27 11:08 | PC.NURSE ---
Patient leaving for his Ct guided procedure.
--- NOTE | 2023-11-27 12:16 | PC.NURSE ---
Returned from procedure nephrostomy tube in place.
[2023-11-27] MEDS: FLUCONAZOLE 100 MG TABLET 200 MG PO (12:24)
[2023-11-27] MEDS: cefTRIAXone 2 GM/NS 100 ML 2 GM/100 ML BAG IVPB (12:25)
[2023-11-27 12:48] LABS: Blood Urea Nitrogen 150 mg/dL (9-20)
--- NOTE | 2023-11-27 14:08 | PM.IMPN ---
Progress Note: A&P Assessment and Plan (1) Sepsis: Qualifiers: Acute renal failure type: unspecified Sepsis acute organ dysfunction status: with acute organ dysfunction Sepsis type: sepsis due to unspecified organism Severe sepsis acute organ dysfunction type: acute renal failure Severe sepsis shock status: without septic shock Qualified Code(s): A41.9 - Sepsis, unspecified organism; R65.20 - Severe sepsis without septic shock; N17.9 - Acute kidney failure, unspecified Code(s): A41.9 - Sepsis, unspecified organism Status: Acute Assessment and Plan: Patient has sepsis due to EColi associated SBP. Patient afebrile but WBC 26K. Lactic acid was 3.7 CT Abd/Pelvis - moderate ascites with nonspecific stranding and paracentesis recommended BCx 11/19: NGTD Paracentesis 11/20: removed 550mL yellow, cloudy fluid with WBC 2700 with 90% neutrophils. Paracentesis Cx: EColi that is pansensitive UA on 11/20/23: 3+ blood, >100RBC, 51-100 WBC and 3+ LE. UCx 11/19 and 11/21 grew Hilda (probably a contaminant or colonizer) BCx 11/21 NGTD Abd US showing multilocular prominent ascites. Possibly patient with micro-bowel perf with SBP or consider leaking urinary system GenSurg and Uroogy consulted and appreciate their input Started on cefepime and Vanco (11/21 at 3am). Flagyl added (11/21 at 640pm) WBC trending down at 23.8K today. No fevers. Clinically better and he fells better. Repeat paracentesis 11/24 with 3300mL removed: RBC 6000, WBC 1122, 84% neutrophils. No organisms on gram stain. Was informed that the Peritoneal Cr high at 22. Urology aware Continue cefepime and Flagyl. Stop Vanco. Follow WBC. Will need to consider fungal peritonitis given the possibility of a leaking urinary diversion Assuming care on 11/26: White count elevated but improved. Continue to monitor and continue Flagyl and fluconazole. Cefepime changed to ceftriaxone. (2) DELISA (acute kidney injury): Code(s): N17.9 - Acute kidney failure, unspecified Status: Acute Assessment and Plan: Patient denies underlying CKD. Cr 5.5 with BUN 160 on original admission and improved to 4.[address] Abd/Pelvis showing s/p prostatectomy, cystectomy with ileal conduit. There is fluid in the ileal conduit and mild hydrourteronephrosis which is not uncommon. Patient signed out against medical advise and returned overnight. Repeat Cr this admission was 5.1 with BUN 156. Potassium 5.5 with Bicarb level 15 and AG 16. Suspect metabolic gap and nongap acidosis related to DELISA and ileal conduit. Started on sodium bicarb drip but changed to NS once serum bicarb improved Etiology unclear but consider ATN from sepsis, HoTN, post-obstructive process, acute GN, HepC related, related to IV drug use Cr could be elevated related to urinary leakage into the abd cavity Nephrology consulted. Abd US showing moderate bilateral hydronephrosis felt to be chronic Renal function better with Cr 3.9 and BUN 133 but UOP still poor. Unclear if all UOP is being captured in the documentation Dialysis being considered Assuming care on 11/26: Continue to monitor renal function and electrolytes. Has not improved. Anticipate dialysis with Nephrology. (3) SBP (spontaneous bacterial peritonitis): Code(s): K65.2 - Spontaneous bacterial peritonitis Status: Acute Assessment and Plan: CT abdomen showing no obvious cirrhosis but does show ascites. Echo showing EF>70%, normal LV with Grade I diastolic dysfunction He has known HepC. Path from ascitic fluid showing marked acute inflammation but no malignancy. Ammonia <9. Abd US showing hepatic cyst, normal spleen size and sludge in GB. Repeat paracentesis as above Ascites probably urine with peritoneal Cr 22. Continue treatment for EColi SBP and will need to cover for fungal peritonitis. As above. Assuming care on 11/26: Continue ceftriaxone Flagyl and fluconazole. (4) Hypotension arterial: Qualif
--- NOTE | 2023-11-27 14:32 | PCPTNOTE ---
Attempted to see patient for PT, however patient refused.
--- NOTE | 2023-11-27 16:20 | PC.NURSE ---
Returned from paracentesis around 1535. Removed 3200 ml. Blood pressures low left arm 86/50 right arm 76/53 and manual blood pressure 78/58. Notified Dr. Kaur. Per Dr. Kaur will order him some albumin.
[2023-11-27] MEDS: ALBUMIN HUMAN 25% 25 GM/100 ML 200 ML IVPB (16:33)
[2023-11-27] MEDS: SODIUM BICARBONATE TAB 650 MG TABLET PO (20:11)
[2023-11-28] VITALS (19 sets, daily range): BP systolic 98–109; BP diastolic 54–74; PULSE 87–98; RESP 20–24; TEMP 35.7–36.6; O2SAT 92–100
[2023-11-28 04:35] LABS: Basophils Absolute Auto 0.1 K/mm3 (0.0-0.1); Basophils Percent Auto 0.4 % (0.2-1.2); Eosinophils Absolute Auto 0.3 K/mm3 (0-0.3); Eosinophils Percent Auto 1.2 % (0-4.4); Hematocrit 36.4 % (42.0-52.0); Immature Granulocyte Absolute 0.36 K/mm3 (0.00-0.031); Immature Granulocyte Percent A 1.5 % (0-0.5); Lymphocytes Absolute Auto 1.56 K/mm3 (0.9-3.2); Lymphocytes Percent Auto 6.6 % (18.3-44.2); Mean Corpuscular Hemoglobin 28.4 pg (26-34); Mean Corpuscular Volume 86.3 fl (80-100); Mean Platelet Volume 11.8 fl (7.4-10.4); Monocytes Absolute Auto 1.5 K/mm3 (0.1-0.6); Monocytes Percent Auto 6.2 % (2.6-8.5); Neutrophils Absolute Auto 19.8 K/mm3 (1.3-6.7); Neutrophils Percent Auto 84.1 % (45.5-73.1); Platelet Count Result 416 k/mm3 (150-375); Red Blood Count 4.22 M/mm3 (4.6-6.20); Red Cell Distribution Width 15.3 % (11.5-14.5); White Blood Count 23.6 K/mm3 (4.5-10.0)
[2023-11-28 04:47] LABS: Alanine Aminotransferase 14 U/L (6-50); Albumin Level 2.8 g/dL (3.5-5.1); Alkaline Phosphatase 157 U/L (38-126); Anion Gap 16 mmol/L (4-12); Aspartate Amino Transferase 28 U/L (17-59); Bilirubin,Total 0.8 mg/dL (0.2-1.3); Carbon Dioxide 14 mmol/L (22-30); Chloride 101 mmol/L (98-107); Estimated CRCL calculation 20 ml/min; Estimated Glomerular Filt Rate 16; Glucose 68 mg/dL (65-110); Magnesium 2.4 mg/dL (1.6-2.3); Phosphorus 6.9 mg/dL (2.5-4.5); Potassium 3.7 mmol/L (3.4-5.0); Sodium 131 mmol/L (137-145)
[2023-11-28 05:07] LABS: Blood Urea Nitrogen 125 mg/dL (9-20)
[2023-11-28 05:15] LABS: Procalcitonin 1.7 ng/mL
[2023-11-28 05:17] LABS: Platelet Estimate Increased (Adequate)
[2023-11-28 05:18] LABS: Acanthocytes 3+; Anisocytosis 1+; Schistocytes None Seen
[2023-11-28] MEDS: metroNIDAZOLE 500 MG TABLET PO ×3 (06:08→20:19)
--- NOTE | 2023-11-28 07:12 | WPDUROPN2 ---
Progress Note: A&P Assessment and Plan (1) Urine ascites: Code(s): R18.8 - Other ascites Status: Acute (2) Acute uremia: Code(s): N19 - Unspecified kidney failure Status: Acute Assessment and Plan: Exhausting/frustrating discussing medical problems with this patient who seems to only care about/interested in discharge. Mgmt. of urine leak: - maintain right percutaneous nephrostomy - recommend placement intraperitoneal drain to drain all urine (as opposed to intermittent paracentesis). - once peritoneal urine drained hopefully nephrostomy will prevent reaccumulation - with drain and PCN in place he could maybe (not ideally) go home with f/u at [facility]. U. for definitive reconstruction. - I expect with resolution of urinary ascites his uremia will improve Above mgmt. of urine leak does not address infection - will leave that decision to others Subjective Subjective Date/Time Seen: 11/28/23 07:12 Interval history: Requesting discharge No complaints of pain, tolerating nephrostomy Review of Systems Review of Systems: All systems reviewed & are unremarkable except as noted in HPI and below Objective Data Vital Signs Vital Signs: Vital Signs - 24 hr 11/27/23 07:54 11/27/23 07:54 11/27/23 08:00 Temperature 97.7 F Pulse Rate 95 113 H Respiratory Rate 20 28 H Blood Pressure 106/72 Pulse Oximetry 100 90 Oxygen Delivery Room Air Oxygen Flow Rate 11/27/23 08:12 11/27/23 08:00 11/27/23 08:00 Temperature Pulse Rate 97 96 Respiratory Rate 20 Blood Pressure Pulse Oximetry 100 Oxygen Delivery Room Air Oxygen Flow Rate 11/27/23 10:00 11/27/23 11:00 11/27/23 11:43 Temperature Pulse Rate 95 96 Respiratory Rate Blood Pressure Pulse Oximetry 100 Oxygen Delivery Room Air Oxygen Flow Rate 11/27/23 12:21 11/27/23 12:55 11/27/23 13:06 Temperature 97.4 F L 96.4 F L Pulse Rate 98 79 90 Respiratory Rate 24 H 16 Blood Pressure 114/76 106/67 Pulse Oximetry 92 93 Oxygen Delivery Oxygen Flow Rate 11/27/23 13:38 11/27/23 13:38 11/27/23 13:56 Temperature Pulse Rate 94 93 Respiratory Rate 20 20 Blood Pressure Pulse Oximetry 88 L Oxygen Delivery Room Air Oxygen Flow Rate 11/27/23 14:15 11/27/23 14:00 11/27/23 16:00 Temperature 97.4 F L 95.9 F L Pulse Rate 94 90 90 Respiratory Rate 20 20 Blood Pressure 96/63 L 86/50 L Pulse Oximetry 91 96 Oxygen Delivery Oxygen Flow Rate 11/27/23 16:52 11/27/23 16:00 11/27/23 16:00 Temperature Pulse Rate 91 Respiratory Rate Blood Pressure 78/58 L Pulse Oximetry 100 Oxygen Delivery Room Air Oxygen Flow Rate 11/27/23 17:29 11/27/23 18:00 11/27/23 18:37 Temperature Pulse Rate 89 Respiratory Rate Blood Pressure 86/55 L Pulse Oximetry 92 Oxygen Delivery Nasal Cannula Oxygen Flow Rate 2 11/27/23 18:15 11/27/23 19:48 11/27/23 20:47 Temperature 97.6 F Pulse Rate 92 91 Respiratory Rate 20 Blood Pressure 106/60 120/71 Pulse Oximetry 92 94 Oxygen Delivery Nasal Cannula Oxygen Flow Rate 1 11/27/23 20:47 11/27/23 20:55 11/27/23 20:00 Temperature Pulse Rate 91 89 90 Respiratory Rate 20 20 Blood Pressure Pulse Oximetry Oxygen Delivery Oxygen Flow Rate 11/27/23 20:00 11/27/23 22:00 11/28/23 00:00 Temperature Pulse Rate 88 96 Respiratory Rate Blood Pressure Pulse Oximetry 93 Oxygen Delivery Nasal Cannula Oxygen Flow Rate 2 11/28/23 00:00 11/28/23 00:24 11/28/23 02:00 Temperature 97.8 F Pulse Rate 96 89 Respiratory Rate 20 Blood Pressure 107/59 L Pulse Oximetry 96 97 Oxygen Delivery Simple Face Mask Oxygen Flow Rate 2 11/28/23 04:00 11/28/23 04:00 11/28/23 05:35 Temperature 97.8 F Pulse Rate 93 90 Respiratory Rate 20 Blood Pressure 100/59 L Pulse Oximetry 93 92 Oxygen Deliv
[2023-11-28] MEDS: UMECLIDINIUM BROMIDE 62.5 MCG ELLIPTA 1 PUFF INHALATION (08:06)
[2023-11-28] MEDS: SODIUM CHLORIDE 0.9% IV 1,000 ML 75 ML IV CONT ×2 (08:29→23:56)
[2023-11-28] MEDS: PANTOPRAZOLE 40 MG TABLET PO (08:30)
[2023-11-28] MEDS: NICOTINE (*PBKC) 21 MG PATCH 1 PATCH TRANSDERM (08:30)
[2023-11-28] MEDS: SODIUM BICARBONATE TAB 650 MG TABLET 1300 MG PO ×2 (08:30→17:16)
--- NOTE | 2023-11-28 08:58 | PCOTNOTE ---
Patient refused treatment this session. Patient stated he is going home and that he is able to do what he needs. Patient was educated on the importance of therapy. Patient continued to decline and state that his family will help him if he needs to.
[2023-11-28] MEDS: cefTRIAXone 2 GM/NS 100 ML 2 GM/100 ML BAG IVPB (11:58)
[2023-11-28] MEDS: FLUCONAZOLE 100 MG TABLET 200 MG PO (11:59)
--- NOTE | 2023-11-28 11:59 | PCNFU ---
Nutrition Follow-Up Complete: Inadequate oral intake related to loss of appetite as evidenced by 0% intakes Goal:Improve PO intake to at least 50% meals and supplements Pt progressing towards goal. continue with same goal. Pt current nutrition is Renal, soft and bite sized consistency, Nepro shakes BID. Nutrition recommendation: Encourage po intake Last recorded weight is 90.2 kg. Bowel Motility: +BM 11/26 Labs Reviewed:Hgb:12, HCT:36.4, Alb:2.8, NA:131, GFR:16, BUN:125, Cr:3.9 Meds Noted:protonix, Skin: no pressure injuries Additional Notes: Pt continues on a renal diet, soft and bite sized consistency, Nepro shakes BID. Intake varies. Nursing encouraging po intake. Monitoring intakes, labs, weights, plan of care Follow up in 5 days
--- NOTE | 2023-11-28 12:33 | PM.PNNEP ---
Progress Note: A&P Assessment and Plan (1) DELISA (acute kidney injury): Code(s): N17.9 - Acute kidney failure, unspecified Status: Acute Assessment and Plan: presumed to be acute last labs I could find are from October 2022 -- creatinine normal at that time evaluation to date: imaging (U/S + CT) with hydronephrosis (but suspect chronic...present on imaging as far back as 2019) ileo-loopogram with intraperitoneal urine leak FeUrea consistent with pre-renal azotemia CPK okay UA suggestive of infection suspect insult due to a combo of intraperitoneal urine leak + hypotension + sepsis/infection Urology recommendations noted s/p right nephrostomy tube placement (to divert urine flow) with eventual need for surgical reconstruction of ureteral-lleal anastomosis by original urologist abdominal drain placement today for urinoma still remains at risk for renal replacement therapy/dialysis... will see how he responds to urinary diversion and further interventions as noted follow trend of repeat labs and urine output (2) Sepsis: Qualifiers: Acute renal failure type: unspecified Sepsis acute organ dysfunction status: with acute organ dysfunction Sepsis type: sepsis due to unspecified organism Severe sepsis acute organ dysfunction type: acute renal failure Severe sepsis shock status: without septic shock Qualified Code(s): A41.9 - Sepsis, unspecified organism; R65.20 - Severe sepsis without septic shock; N17.9 - Acute kidney failure, unspecified Code(s): A41.9 - Sepsis, unspecified organism Status: Acute Assessment and Plan: as noted by hypotension, elevated WBC, lactic acidosis on admission suspected source is spontaneous bacterial peritonitis secondary to intraperitoneal urinary leak +/- UTI s/p paracentesis on 11/20, 11/24, and 11/26 noted plans for abdominal drain placement for urinoma culture data noted on antibiotics and antifungal therapy follow WBC trend (3) Acute hyperkalemia: Code(s): E87.5 - Hyperkalemia Status: Acute Assessment and Plan: as noted on admission better s/p medical therapy and current interventions follow trend (4) Hypotension: Code(s): I95.9 - Hypotension, unspecified Status: Acute Assessment and Plan: 70s systolic on admission thought to be related to #2 s/p IVFs with improvement in systolic BP BP medications on hold follow trend of hemodynamics (5) SBP (spontaneous bacterial peritonitis): Code(s): K65.2 - Spontaneous bacterial peritonitis Status: Acute Assessment and Plan: as noted by ascites fluid analysis and culture on antibiotic therapy presumed source of #2 likely secondary to intraperitoenal urinary leak (as noted by recent imaging) Urology and Surgery following (6) Metabolic acidosis: Code(s): E87.20 - Acidosis, unspecified Status: Acute Assessment and Plan: partly related to lactic acidosis along with DELISA/ARF CO2 dropping again will start oral bicarbonate but if worsens, consider changing IVFs to bicarb gtt Will continue to follow. Subjective Date/time seen: 11/28/23 12:33 Interval history: Follow-up for acute kidney injury/acute renal failure. Status post right nephrostomy tube placement (for urinary diversion from abdominal cavity) as well as large volume paracentesis yesterday and tolerated procedure fairly well; no real significant change in renal function or urine output noted at this time; noted plans for abdominal drain placement this afternoon for ongoing drainage of urinoma/ascites; despite ongoing medical issues, patient continues to ask when he can go home. Exam Narrative: General: somewhat ill-appearing male in NAD Heart: normal S1 and S2; no rub Lungs: clear to auscultation Abdomen: soft, nontender, less distension noted, positive bowel sounds Extremities: no cyanosis or clubbing;
--- NOTE | 2023-11-28 12:33 | P.PNNP_ITS ---
Progress Note: A&P Assessment and Plan (1) DELISA (acute kidney injury): Code(s): N17.9 - Acute kidney failure, unspecified Status: Acute Assessment and Plan: * presumed to be acute * last labs I could find are from October 2022 -- creatinine normal at that time * evaluation to date: * imaging (U/S + CT) with hydronephrosis (but suspect chronic...present on imaging as far back as 2019) * ileo-loopogram with intraperitoneal urine leak * FeUrea consistent with pre-renal azotemia * CPK okay * UA suggestive of infection * suspect insult due to a combo of intraperitoneal urine leak + hypotension + sepsis/infection * Urology recommendations noted * s/p right nephrostomy tube placement (to divert urine flow) with eventual need for surgical reconstruction of ureteral-lleal anastomosis by original urologist * abdominal drain placement today for urinoma * still remains at risk for renal replacement therapy/dialysis... * will see how he responds to urinary diversion and further interventions as noted * follow trend of repeat labs and urine output (2) Sepsis: Qualifiers: Acute renal failure type: unspecified Sepsis acute organ dysfunction status: with acute organ dysfunction Sepsis type: sepsis due to unspecified organism Severe sepsis acute organ dysfunction type: acute renal failure Severe sepsis shock status: without septic shock Qualified Code(s): A41.9 - Sepsis, unspecified organism; R65.20 - Severe sepsis without septic shock; N17.9 - Acute kidney failure, unspecified Code(s): A41.9 - Sepsis, unspecified organism Status: Acute Assessment and Plan: * as noted by hypotension, elevated WBC, lactic acidosis on admission * suspected source is spontaneous bacterial peritonitis secondary to intraperitoneal urinary leak +/- UTI * s/p paracentesis on 11/20, 11/24, and 11/26 * noted plans for abdominal drain placement for urinoma * culture data noted * on antibiotics and antifungal therapy * follow WBC trend (3) Acute hyperkalemia: Code(s): E87.5 - Hyperkalemia Status: Acute Assessment and Plan: * as noted on admission * better s/p medical therapy and current interventions * follow trend (4) Hypotension: Code(s): I95.9 - Hypotension, unspecified Status: Acute Assessment and Plan: * 70s systolic on admission * thought to be related to #2 * s/p IVFs with improvement in systolic BP * BP medications on hold * follow trend of hemodynamics (5) SBP (spontaneous bacterial peritonitis): Code(s): K65.2 - Spontaneous bacterial peritonitis Status: Acute Assessment and Plan: * as noted by ascites fluid analysis and culture * on antibiotic therapy * presumed source of #2 * likely secondary to intraperitoenal urinary leak (as noted by recent imaging) * Urology and Surgery following (6) Metabolic acidosis: Code(s): E87.20 - Acidosis, unspecified Status: Acute Assessment and Plan: * partly related to lactic acidosis along with DELISA/ARF * CO2 dropping again * will start oral bicarbonate but if worsens, consider changing IVFs to bicarb gtt Will continue to follow. Subjective Date/time seen: 11/28/23 12:33 Interval history: Follow-up for acute kidney injury/acute renal failure. Status post right nephrostomy tube placement (for urinary diversion from abdominal cavity) as well as large volume paracentesis yesterday and tolerated procedure fairly well; no real significant
--- NOTE | 2023-11-28 17:34 | PC.NURSE ---
Reported pts BP to MD. Verbal orders for Albumin 50% X 1
[2023-11-28] MEDS: ALBUMIN HUMAN 25% 25 GM/100 ML 200 ML IVPB (17:45)
--- NOTE | 2023-11-28 17:49 | P.PNIM_ITS ---
Progress Note: A&P Assessment and Plan (1) Sepsis: Qualifiers: Acute renal failure type: unspecified Sepsis acute organ dysfunction status: with acute organ dysfunction Sepsis type: sepsis due to unspecified or ganism Severe sepsis acute organ dysfunction type: acute renal failure Severe sepsis shock status: without septic shock Qualified Code(s): A41.9 - Sepsis, unspecified organism; R65.20 - Severe sepsis without septic shock; N17.9 - Acute kidney failure, unspecified Code(s): A41.9 - Sepsis, unspecified organism Status: Acute Assessment and Plan: Patient has sepsis due to EColi associated SBP. Patient afebrile but WBC 26K. Lactic acid was 3.7 CT Abd/Pelvis - moderate ascites with nonspecific stranding and paracentesis recommended BCx 11/19: NGTD Paracentesis 11/20: removed 550mL yellow, cloudy fluid with WBC 2700 with 90% neutrophils. Paracentesis Cx: EColi that is pansensitive UA on 11/20/23: 3+ blood, >100RBC, 51-100 WBC and 3+ LE. UCx 11/19 and 11/21 grew Hilda (probably a contaminant or colonizer) BCx 11/21 NGTD Abd US showing multilocular prominent ascites. Possibly patient with micro-bowel perf with SBP or consider leaking urinary system GenSurg and Uroogy consulted and appreciate their input Started on cefepime and Vanco (11/21 at 3am). Flagyl added (11/21 at 640pm) WBC trending down at 23.8K today. No fevers. Clinically better and he fells better. Repeat paracentesis 11/24 with 3300mL removed: RBC 6000, WBC 1122, 84% neutrophils. No organisms on gram stain. Was informed that the Peritoneal Cr high at 22. Urology aware Continue cefepime and Flagyl. Stop Vanco. Follow WBC. Will need to consider fungal peritonitis given the possibility of a leaking urinary diversion Assuming care on 11/26: White count elevated but improved. Continue to monitor and continue Flagyl and fluconazole. Cefepime changed to ceftriaxone. November 27 update: Persistent leukocytosis although this is expected with the persistent ascites. He is draining well through his right side nephrostomy tube less output through the ileal conduit. On 11/27 he had an uncomplicated peritoneal drain placed of large right-sided abdominal urinoma. There is large output coming from that as well. Pressure decreasing. Giving another 50 g 1 time bolus of albumin for hemodynamic support. Patient otherwise looks clinically okay. Attempting to transfer to [facility] for reconst ruction of his ileal conduit. Sodium has remained stable around 131. Holding off on dialysis to see if he gets better clearance with this oval of large volume ascites. Bicarb dropped to 16 and oral bicarbonate start by Nephrology. Continue management with Nephrology. (2) DELISA (acute kidney injury): Code(s): N17.9 - Acute kidney failure, unspecified Status: Acute Assessment and Plan: Patient denies underlying CKD. Cr 5.5 with BUN 160 on original admission and improved to 4.[address] Abd/Pelvis showing s/p prostatectomy, cystectomy with ileal conduit. There is fluid in the ileal conduit and mild hydrourteronephrosis which is not uncommon. Patient signed out against medical advise and returned overnight. Repeat Cr this admission was 5.1 with BUN 156. Potassium 5.5 with Bicarb level 15 and AG 16. Suspect metabolic gap and nongap acidosis related to DELISA and ileal conduit. Started on sodium bicarb drip but changed to NS once serum bicarb improved Etiology unclear but consider ATN from sepsis, HoTN, post-obstructive process, acute GN, HepC related, related to IV drug use Cr could be elevated related to urinary leakage into the abd cavity Nephrology consulted. Abd US showing moderate bilateral
[2023-11-28 18:56] LABS: Influenza A QL RT-PCR Negative (Negative); Influenza B QL RT-PCR Negative (Negative); RSV RNA, RT-PCR Negative (Negative); SARS-CoV-2 RNA PCR Negative (Negative)
[2023-11-28] MEDS: HYDROcodone/acetaminophen (*CRX) 5-325 MG TABLET 1 TAB PO (20:19)
[2023-11-28] MEDS: hydrOXYzine HCL 25 MG TABLET PO (20:20)
[2023-11-29] VITALS (17 sets, daily range): BP systolic 110–129; BP diastolic 59–77; PULSE 88–108; RESP 20–26; TEMP 35.8–37.4; O2SAT 94–100
[2023-11-29] MEDS: hydrOXYzine HCL 25 MG TABLET PO (02:47)
[2023-11-29 03:42] LABS: Basophils Absolute Auto 0.1 K/mm3 (0.0-0.1); Basophils Percent Auto 0.3 % (0.2-1.2); Eosinophils Absolute Auto 0.3 K/mm3 (0-0.3); Eosinophils Percent Auto 1.7 % (0-4.4); Hematocrit 32.3 % (42.0-52.0); Hemoglobin 10.6 g/dL (14.0-18.0); Immature Granulocyte Absolute 0.25 K/mm3 (0.00-0.031); Immature Granulocyte Percent A 1.6 % (0-0.5); Lymphocytes Percent Auto 7.7 % (18.3-44.2); Mean Corpuscular HGB Conc 32.8 g/dl (32-36); Mean Corpuscular Hemoglobin 28.3 pg (26-34); Mean Corpuscular Volume 86.4 fl (80-100); Mean Platelet Volume 11.3 fl (7.4-10.4); Monocytes Absolute Auto 1.1 K/mm3 (0.1-0.6); Monocytes Percent Auto 6.8 % (2.6-8.5); Neutrophils Absolute Auto 12.8 K/mm3 (1.3-6.7); Neutrophils Percent Auto 81.9 % (45.5-73.1); Platelet Count Result 334 k/mm3 (150-375); Red Blood Count 3.74 M/mm3 (4.6-6.20); Red Cell Distribution Width 15.4 % (11.5-14.5); White Blood Count 15.6 K/mm3 (4.5-10.0)
[2023-11-29 04:06] LABS: Alanine Aminotransferase 13 U/L (6-50); Albumin Level 2.7 g/dL (3.5-5.1); Alkaline Phosphatase 118 U/L (38-126); Anion Gap 14 mmol/L (4-12); Aspartate Amino Transferase 31 U/L (17-59); Bilirubin,Total 0.6 mg/dL (0.2-1.3); Blood Urea Nitrogen 84 mg/dL (9-20); Carbon Dioxide 15 mmol/L (22-30); Chloride 107 mmol/L (98-107); Estimated CRCL calculation 37 ml/min; Estimated Glomerular Filt Rate 32; Glucose 69 mg/dL (65-110); Magnesium 2.3 mg/dL (1.6-2.3); Potassium 3.3 mmol/L (3.4-5.0); Sodium 136 mmol/L (137-145)
[2023-11-29 04:16] LABS: Procalcitonin 1.2 ng/mL
[2023-11-29 07:47] LABS: Reference Lab Test Result 23.6
[2023-11-29] MEDS: NICOTINE (*PBKC) 21 MG PATCH 1 PATCH TRANSDERM (08:56)
[2023-11-29] MEDS: POTASSIUM CHLORIDE 20 MEQ ER TABLET PO ×2 (08:57→20:25)
[2023-11-29] MEDS: SODIUM BICARBONATE TAB 650 MG TABLET 1300 MG PO ×2 (09:00→16:26)
--- NOTE | 2023-11-29 10:34 | P.PNNP_ITS ---
Progress Note: A&P Assessment and Plan (1) DELISA (acute kidney injury): Code(s): N17.9 - Acute kidney failure, unspecified Status: Acute Assessment and Plan: * slow improvement noted * presumed to be acute * last labs I could find are from October 2022 -- creatinine normal at that time * evaluation to date: * imaging (U/S + CT) with hydronephrosis (but suspect chronic...present on imaging as far back as 2019) * ileo-loopogram with intraperitoneal urine leak * FeUrea consistent with pre-renal azotemia * CPK okay * UA suggestive of infection * suspect insult due to a combo of intraperitoneal urine leak + hypotension + sepsis/infection * Urology recommendations noted * s/p right nephrostomy tube placement (to divert urine flow) with eventual need for surgical reconstruction of ureteral-lleal anastomosis by original urologist * s/p abdominal drain placement (on 11/27) for ongoing drainage of urinoma * remains at risk for renal replacement therapy/dialysis... * however, seems to be responding to urinary diversion and further interventions as noted * given CXR findings, will cut back on IVFs -- maybe need some diuresis... * follow trend of repeat labs and urine output (2) Sepsis: Qualifiers: Acute renal failure type: unspecified Sepsis acute organ dysfunction status: with acute organ dysfunction Sepsis type: sepsis due to unspecified organism Severe sepsis acute organ dysfunction type: acute renal failure Sheila re sepsis shock status: without septic shock Qualified Code(s): A41.9 - Sepsis, unspecified organism; R65.20 - Severe sepsis without septic shock; N17.9 - Acute kidney failure, unspecified Code(s): A41.9 - Sepsis, unspecified organism Status: Acute Assessment and Plan: * as noted by hypotension, elevated WBC, lactic acidosis on admission * suspected source is spontaneous bacterial peritonitis secondary to intraperitoneal urinary leak +/- UTI * s/p paracentesis on 11/20, 11/24, and 11/26 * noted plans for abdominal drain placement for urinoma * culture data noted * on antibiotics and antifungal therapy * follow WBC trend (3) Acute hyperkalemia: Code(s): E87.5 - Hyperkalemia Status: Acute Assessment and Plan: * resolved * as noted on admission * better s/p medical therapy and current interventions * follow trend (4) Hypotension: Code(s): I95.9 - Hypotension, unspecified Status: Acute Assessment and Plan: * 70s systolic on admission * thought to be related to #2 * s/p IVFs with improvement in systolic BP * BP medications on hold * follow trend of hemodynamics (5) SBP (spontaneous bacterial peritonitis): Code(s): K65.2 - Spontaneous bacterial peritonitis Status: Acute Assessment and Plan: * as noted by ascites fluid analysis and culture * on antibiotic therapy * presumed source of #2 * likely secondary to intraperitoenal urinary leak (as noted by recent imaging) * Urology and Surgery following (6) Metabolic acidosis: Code(s): E87.20 - Acidosis, unspecified Status: Acute Assessment and Plan: * partly related to lactic acidosis along with DELISA/ARF and ileal conduit * CO2 remains lowish * on oral bicarbonate with dosage just increased Will continue to follow. Subjective Date/time seen: 11/29/23 10:34 Interval history: Follow-up for acute kidney injury/acute renal failure. Status post abdominal drain placement yesterday afternoon with signif
--- NOTE | 2023-11-29 10:34 | PM.PNNEP ---
Progress Note: A&P Assessment and Plan (1) DELISA (acute kidney injury): Code(s): N17.9 - Acute kidney failure, unspecified Status: Acute Assessment and Plan: slow improvement noted presumed to be acute last labs I could find are from October 2022 -- creatinine normal at that time evaluation to date: imaging (U/S + CT) with hydronephrosis (but suspect chronic...present on imaging as far back as 2019) ileo-loopogram with intraperitoneal urine leak FeUrea consistent with pre-renal azotemia CPK okay UA suggestive of infection suspect insult due to a combo of intraperitoneal urine leak + hypotension + sepsis/infection Urology recommendations noted s/p right nephrostomy tube placement (to divert urine flow) with eventual need for surgical reconstruction of ureteral-lleal anastomosis by original urologist s/p abdominal drain placement (on 11/27) for ongoing drainage of urinoma remains at risk for renal replacement therapy/dialysis... however, seems to be responding to urinary diversion and further interventions as noted given CXR findings, will cut back on IVFs -- maybe need some diuresis... follow trend of repeat labs and urine output (2) Sepsis: Qualifiers: Acute renal failure type: unspecified Sepsis acute organ dysfunction status: with acute organ dysfunction Sepsis type: sepsis due to unspecified organism Severe sepsis acute organ dysfunction type: acute renal failure Severe sepsis shock status: without septic shock Qualified Code(s): A41.9 - Sepsis, unspecified organism; R65.20 - Severe sepsis without septic shock; N17.9 - Acute kidney failure, unspecified Code(s): A41.9 - Sepsis, unspecified organism Status: Acute Assessment and Plan: as noted by hypotension, elevated WBC, lactic acidosis on admission suspected source is spontaneous bacterial peritonitis secondary to intraperitoneal urinary leak +/- UTI s/p paracentesis on 11/20, 11/24, and 11/26 noted plans for abdominal drain placement for urinoma culture data noted on antibiotics and antifungal therapy follow WBC trend (3) Acute hyperkalemia: Code(s): E87.5 - Hyperkalemia Status: Acute Assessment and Plan: resolved as noted on admission better s/p medical therapy and current interventions follow trend (4) Hypotension: Code(s): I95.9 - Hypotension, unspecified Status: Acute Assessment and Plan: 70s systolic on admission thought to be related to #2 s/p IVFs with improvement in systolic BP BP medications on hold follow trend of hemodynamics (5) SBP (spontaneous bacterial peritonitis): Code(s): K65.2 - Spontaneous bacterial peritonitis Status: Acute Assessment and Plan: as noted by ascites fluid analysis and culture on antibiotic therapy presumed source of #2 likely secondary to intraperitoenal urinary leak (as noted by recent imaging) Urology and Surgery following (6) Metabolic acidosis: Code(s): E87.20 - Acidosis, unspecified Status: Acute Assessment and Plan: partly related to lactic acidosis along with DELISA/ARF and ileal conduit CO2 remains lowish on oral bicarbonate with dosage just increased Will continue to follow. Subjective Date/time seen: 11/29/23 10:34 Interval history: Follow-up for acute kidney injury/acute renal failure. Status post abdominal drain placement yesterday afternoon with significant output noted; renal function has improved with recent interventions (right nephrostomy tube placement, severa/multiple paracenteses, abdominal drain placement, antibiotics, optimization of hemodynamics...etc); no apparent distress noted; hoping to go home soon. Exam Narrative: General: somewhat ill-appearing male in NAD Heart: normal S1 and S2; no rub Lungs: clear to auscultation Abdomen: soft, nontender, less distension noted, positive bowel sounds Extremit
--- NOTE | 2023-11-29 11:52 | WPDUROPN2 ---
Progress Note: A&P Assessment and Plan (1) Urine ascites: Code(s): R18.8 - Other ascites Status: Acute (2) Acute uremia: Code(s): N19 - Unspecified kidney failure Status: Acute Assessment and Plan: Mgmt. of urine leak: - maintain right percutaneous nephrostomy - continue right intraperitoneal drain - once peritoneal urine drained hopefully nephrostomy will prevent reaccumulation - plan to maintain drains on discharge until follow up with his urologist at [facility]. No further care can be provided at this facility given nature of his issues. - I expect with resolution of urinary ascites his uremia will improve - okay for discharge from urology standpoint pending improvement of medical issues with appropriate plan for outpatient follow up in place Subjective Subjective Date/Time Seen: 11/29/23 11:52 Interval history: Offers no complaints today. Denies pain. Very eager to return home. Drains with clear output. Review of Systems Review of Systems: All systems reviewed & are unremarkable except as noted in HPI and below Exam Narrative: General: Awake, alert, comfortable, no acute distress HEENT: Normocephalic, atraumatic, sclerae anicteric Respiratory: Normal respiratory effort, no accessory muscle use Abdomen: Nondistended, nontender : Drains with clear output Skin: Normal coloration, warm and dry Neurologic: No focal neuro deficits noted Psychiatric: Appropriate mood and affect, judgment and insight fair Objective Data Vital Signs Vital Signs: Vital Signs - 24 hr 11/28/23 12:32 11/28/23 12:00 11/28/23 12:00 Temperature Pulse Rate 97 Respiratory Rate Blood Pressure 109/74 Pulse Oximetry 99 Oxygen Delivery Nasal Cannula Oxygen Flow Rate 3 11/28/23 14:00 11/28/23 16:00 11/28/23 16:00 Temperature 96.5 F L Pulse Rate 93 94 Respiratory Rate 20 Blood Pressure 98/55 L Pulse Oximetry 98 98 Oxygen Delivery Nasal Cannula Oxygen Flow Rate 3 11/28/23 16:00 11/28/23 18:00 11/28/23 19:39 Temperature 97.6 F Pulse Rate 95 96 96 Respiratory Rate 20 Blood Pressure 100/54 L Pulse Oximetry 97 Oxygen Delivery Oxygen Flow Rate 11/28/23 20:00 11/28/23 20:00 11/28/23 22:00 Temperature Pulse Rate 98 91 Respiratory Rate Blood Pressure Pulse Oximetry 96 Oxygen Delivery Nasal Cannula Oxygen Flow Rate 3 11/29/23 00:17 11/29/23 00:00 11/29/23 00:00 Temperature 97.8 F Pulse Rate 88 91 Respiratory Rate 20 Blood Pressure 110/59 L Pulse Oximetry 96 96 Oxygen Delivery Nasal Cannula Oxygen Flow Rate 3 11/29/23 02:00 11/29/23 03:33 11/29/23 04:00 Temperature 97.8 F Pulse Rate 96 97 Respiratory Rate 20 Blood Pressure 129/75 Pulse Oximetry 96 98 Oxygen Delivery Nasal Cannula Oxygen Flow Rate 3 11/29/23 04:00 11/28/23 20:22 11/29/23 05:44 Temperature Pulse Rate 91 97 Respiratory Rate Blood Pressure Pulse Oximetry 100 Oxygen Delivery Nasal Cannula Oxygen Flow Rate 5 11/29/23 07:42 11/29/23 08:00 11/29/23 08:00 Temperature 96.5 F L Pulse Rate 103 H 100 Respiratory Rate 24 H Blood Pressure 127/74 Pulse Oximetry 98 96 Oxygen Delivery Nasal Cannula Oxygen Flow Rate 2 11/29/23 10:00 11/29/23 08:00 Temperature Pulse Rate 101 H Respiratory Rate Blood Pressure Pulse Oximetry 98 Oxygen Delivery Nasal Cannula Oxygen Flow Rate 3 Intake/Output Intake/Output: Intake & Output 11/26/23 11/27/23 11/28/23 11/29/23 23:59 23:59 23:59 23:59 Intake Total 1510 2790 3130 550 Output Total 720 3780 5880 0175 Balance 790 -990 -2750 -2175 Meds/Results Medications: Active Medications Generic Name Dose Route Start Last Admin Trade Name Edd PRN Reason Stop Dose Admin Acetaminophen 650 mg 11/22/23 17:07 11/27/23 18:46 Acetaminophen 325 Mg Tablet PO 650 mg Q6H PRN Administration Mi
[2023-11-29] MEDS: SODIUM CHLORIDE 0.9% IV 1,000 ML 75 ML IV CONT (12:48)
[2023-11-29] MEDS: FLUCONAZOLE 100 MG TABLET 200 MG PO (12:48)
[2023-11-29] MEDS: cefTRIAXone 2 GM/NS 100 ML 2 GM/100 ML BAG IVPB (12:48)
--- NOTE | 2023-11-29 15:35 | PCOTNOTE ---
Attempted to see Patient for P.M. treatment session. Patient refused to participate in OT services, stated he tried PT already and is done for the day. Patient states he is very sick right now, needs to be transferred back to [place] and have additional services. Patient educated on the importance of therapy services to increase his strength/abilities. Patient refuses.
[2023-11-29] MEDS: metroNIDAZOLE 500 MG TABLET PO (16:26)
--- NOTE | 2023-11-29 18:40 | PM.IMPN ---
Progress Note: A&P Assessment and Plan (1) Sepsis: Qualifiers: Acute renal failure type: unspecified Sepsis acute organ dysfunction status: with acute organ dysfunction Sepsis type: sepsis due to unspecified organism Severe sepsis acute organ dysfunction type: acute renal failure Severe sepsis shock status: without septic shock Qualified Code(s): A41.9 - Sepsis, unspecified organism; R65.20 - Severe sepsis without septic shock; N17.9 - Acute kidney failure, unspecified Code(s): A41.9 - Sepsis, unspecified organism Status: Acute Assessment and Plan: Patient has sepsis due to EColi associated SBP. Patient afebrile but WBC 26K. Lactic acid was 3.7 CT Abd/Pelvis - moderate ascites with nonspecific stranding and paracentesis recommended BCx 11/19: NGTD Paracentesis 11/20: removed 550mL yellow, cloudy fluid with WBC 2700 with 90% neutrophils. Paracentesis Cx: EColi that is pansensitive UA on 11/20/23: 3+ blood, >100RBC, 51-100 WBC and 3+ LE. UCx 11/19 and 11/21 grew Hilda (probably a contaminant or colonizer) BCx 11/21 NGTD Abd US showing multilocular prominent ascites. Possibly patient with micro-bowel perf with SBP or consider leaking urinary system GenSurg and Uroogy consulted and appreciate their input Started on cefepime and Vanco (11/21 at 3am). Flagyl added (11/21 at 640pm) WBC trending down at 23.8K today. No fevers. Clinically better and he fells better. Repeat paracentesis 11/24 with 3300mL removed: RBC 6000, WBC 1122, 84% neutrophils. No organisms on gram stain. Was informed that the Peritoneal Cr high at 22. Urology aware Continue cefepime and Flagyl. Stop Vanco. Follow WBC. Will need to consider fungal peritonitis given the possibility of a leaking urinary diversion Assuming care on 11/26: White count elevated but improved. Continue to monitor and continue Flagyl and fluconazole. Cefepime changed to ceftriaxone. November 27 update: Persistent leukocytosis although this is expected with the persistent ascites. He is draining well through his right side nephrostomy tube less output through the ileal conduit. On 11/27 he had an uncomplicated peritoneal drain placed of large right-sided abdominal urinoma. There is large output coming from that as well. Pressure decreasing. Giving another 50 g 1 time bolus of albumin for hemodynamic support. Patient otherwise looks clinically okay. Attempting to transfer to [facility] for reconstruction of his ileal conduit. Sodium has remained stable around 131. Holding off on dialysis to see if he gets better clearance with this oval of large volume ascites. Bicarb dropped to 16 and oral bicarbonate start by Nephrology. Continue management with Nephrology. (2) DELISA (acute kidney injury): Code(s): N17.9 - Acute kidney failure, unspecified Status: Acute Assessment and Plan: Patient denies underlying CKD. Cr 5.5 with BUN 160 on original admission and improved to 4.[address] Abd/Pelvis showing s/p prostatectomy, cystectomy with ileal conduit. There is fluid in the ileal conduit and mild hydrourteronephrosis which is not uncommon. Patient signed out against medical advise and returned overnight. Repeat Cr this admission was 5.1 with BUN 156. Potassium 5.5 with Bicarb level 15 and AG 16. Suspect metabolic gap and nongap acidosis related to DELISA and ileal conduit. Started on sodium bicarb drip but changed to NS once serum bicarb improved Etiology unclear but consider ATN from sepsis, HoTN, post-obstructive process, acute GN, HepC related, related to IV drug use Cr could be elevated related to urinary leakage into the abd cavity Nephrology consulted. Abd US showing moderate bilateral hydronephrosis felt to be chronic Renal function better with Cr 3.9 and BUN 133 but UOP still poor. Unclear if all UOP is being captured in the documentation Dialysis being considered Assuming care on 11/26: Continue to monitor renal function and electrolytes. Robinson
[2023-11-29] MEDS: HYDROcodone/acetaminophen (*CRX) 5-325 MG TABLET 1 TAB PO (20:25)
[2023-11-29] MEDS: LORazepam INJ (*CRX) 2 MG/ML VIAL 1 MG IV PUSH (23:38)
[2023-11-30] VITALS (9 sets, daily range): BP systolic 120–150; BP diastolic 60–89; PULSE 77–119; RESP 22–23; TEMP 36.4–37; O2SAT 91–97
[2023-11-30] MEDS: IPRATROPIUM 0.5 MG/ALBUTEROL SULFATE 2.5 MG AMPUL.NEB 3 ML INHALATION (02:44)
[2023-11-30 04:41] LABS: Basophils Absolute Auto 0.1 K/mm3 (0.0-0.1); Basophils Percent Auto 0.4 % (0.2-1.2); Eosinophils Absolute Auto 0.2 K/mm3 (0-0.3); Eosinophils Percent Auto 1.4 % (0-4.4); Hematocrit 38.5 % (42.0-52.0); Hemoglobin 12.1 g/dL (14.0-18.0); Immature Granulocyte Absolute 0.22 K/mm3 (0.00-0.031); Immature Granulocyte Percent A 1.4 % (0-0.5); Lymphocytes Absolute Auto 1.37 K/mm3 (0.9-3.2); Lymphocytes Percent Auto 8.6 % (18.3-44.2); Mean Corpuscular HGB Conc 31.4 g/dl (32-36); Mean Corpuscular Hemoglobin 28.2 pg (26-34); Mean Corpuscular Volume 89.7 fl (80-100); Monocytes Absolute Auto 1.3 K/mm3 (0.1-0.6); Monocytes Percent Auto 8.3 % (2.6-8.5); Neutrophils Absolute Auto 12.8 K/mm3 (1.3-6.7); Neutrophils Percent Auto 79.9 % (45.5-73.1); Platelet Count Result 351 k/mm3 (150-375); Red Blood Count 4.29 M/mm3 (4.6-6.20); Red Cell Distribution Width 15.9 % (11.5-14.5)
[2023-11-30 05:00] LABS: Alanine Aminotransferase 14 U/L (6-50); Albumin Level 2.6 g/dL (3.5-5.1); Alkaline Phosphatase 145 U/L (38-126); Anion Gap 9 mmol/L (4-12); Aspartate Amino Transferase 38 U/L (17-59); Bilirubin,Total 0.7 mg/dL (0.2-1.3); Blood Urea Nitrogen 49 mg/dL (9-20); Calcium 8.3 mg/dL (8.4-10.2); Carbon Dioxide 20 mmol/L (22-30); Chloride 112 mmol/L (98-107); Estimated CRCL calculation 68 ml/min; Estimated Glomerular Filt Rate > 60; Glucose 74 mg/dL (65-110); Magnesium 2.1 mg/dL (1.6-2.3); Potassium 4.2 mmol/L (3.4-5.0); Sodium 141 mmol/L (137-145)
[2023-11-30] MEDS: metroNIDAZOLE 500 MG TABLET PO (06:44)
[2023-11-30] MEDS: NICOTINE (*PBKC) 21 MG PATCH 1 PATCH TRANSDERM (09:28)
[2023-11-30] MEDS: SODIUM BICARBONATE TAB 650 MG TABLET 1300 MG PO (09:43)
--- NOTE | 2023-11-30 12:30 | PCOTNOTE ---
Attempted to see pt for Occupational Therapy treatment. Pt was sleeping at therapist arrival. Pt was unable keep aroused despite both verbal/sternal rubbing. Pt would only briefly open eyes and then fall back asleep.
--- NOTE | 2023-11-30 14:15 | PC.NURSE ---
This RN present for discussion regarding patient's request to leave AMA with Dr Kaur. Pt currently wearing 2L o2 and stated I don't need it. Pt aware of risks of leaving AMA and signed form.
--- NOTE | 2023-12-02 19:37 | PM.DS ---
DS: Admitting Diagnosis Discharge Date 11/30/23 Admitting Diagnosis abdominal pain DS: Discharge Diagnosis Discharge Diagnosis (1) Acute hypoxic on chronic hypercapnic respiratory failure: Code(s): J96.01 - Acute respiratory failure with hypoxia; J96.12 - Chronic respiratory failure with hypercapnia Status: Acute (2) Urine ascites: Code(s): R18.8 - Other ascites Status: Acute (3) Colitis: Code(s): K52.9 - Noninfective gastroenteritis and colitis, unspecified Status: Acute (4) Acute hyperkalemia: Code(s): E87.5 - Hyperkalemia Status: Acute (5) DELISA (acute kidney injury): Code(s): N17.9 - Acute kidney failure, unspecified Status: Acute (6) Acute uremia: Code(s): N19 - Unspecified kidney failure Status: Acute (7) Sepsis: Qualifiers: Acute renal failure type: unspecified Sepsis acute organ dysfunction status: with acute organ dysfunction Sepsis type: sepsis due to unspecified organism Severe sepsis acute organ dysfunction type: acute renal failure Severe sepsis shock status: without septic shock Qualified Code(s): A41.9 - Sepsis, unspecified organism; R65.20 - Severe sepsis without septic shock; N17.9 - Acute kidney failure, unspecified Code(s): A41.9 - Sepsis, unspecified organism Status: Acute (8) Metabolic acidosis: Code(s): E87.20 - Acidosis, unspecified Status: Acute (9) SBP (spontaneous bacterial peritonitis): Code(s): K65.2 - Spontaneous bacterial peritonitis Status: Acute (10) Active intravenous drug use: Code(s): F19.90 - Other psychoactive substance use, unspecified, uncomplicated Status: Chronic (11) Tobacco abuse disorder: Code(s): Z72.0 - Tobacco use Status: Chronic DS: Summary Hospital Course Hospital Course: This is a 62 year old male with PMH 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 Jennifer Sanchez on 10/22/19 at [facility], history of IV opiate abuse, marijuana and tobacco abuse, hypertension, hepatitis-C presented to [facility] on 11/22/2023 after recently leaving [place]. An ileo loopogram was performed on 11/26/2023 demonstrating leakage of contrast from the anastomosis of the right ureter with the ileal conduit. The next day on 11/[address]-guided right nephrostomy tube placement was successful. The next day on 11/27 a CT-guided drainage of large right abdominal urinoma with indwelling intraperitoneal drain was placed successfully. This was indicated due to refractory ascites in spite of multiple paracentesis. paracentesis analysis and culture indicative of infection with E coli pansensitive. Patient treated with ceftriaxone. A separate urinalysis growing Hilda also pansensitive and patient started on fluconazole. Concurrently, the patient had an DELISA and sepsis, presenting with a serum creatinine of 5.5. Episodes of low blood pressure responsive to albumin in the setting of large volume paracentesis. suspected colitis which was revealed on a CT abdomen pelvis. Patient was treated with Flagyl in addition to the above. Concurrently, the patient developed acute hypoxic respiratory failure which was mild in requiring 2 L via nasal cannula. on 11/29 his acute kidney injury has resolved, abdominal ascites improved. Workup and treatment for acute hypoxic respiratory failure ongoing. The patient elected to sign out AMA. He was heavily educated on the risk of worsening of his symptoms and conditions, deterioration, and even mortality. He was able to explain in his own words the status of his conditions and the risks of leaving. He was also educated on the detrimental effects of polysubstance abuse. He also understood this and in spite of the above discussion decided to leave AMA. Time Spent with Patient Time attestation: Total time spen
--- NOTE | 2023-12-07 18:58 | PC.NURSE ---
11/30/2023 [employer] safety investigator, Jose A Rivera, called requesting past medical history about this patient because he was aware that this patient had signed himself out AMA at 1415 from [facility] and was now at ~1915 (at the time of certified nursing assistant instructor phone call). Information available to this scientific technical writer was provided the safety investigator. 12/02/2023 During a follow-up phone call with Jose A Rivera, he explained to me that the [employer] has decided that the cause of appeared to be a natural progression of the decedents numerous, irreversible medical conditions and they would not be pursuing an investigation any further. Jose A explained to me that the decedents son was comfortable with the certified nursing assistant instructor's decision and was realistic about how critically ill his father was.
== END 2023-11-30 11:45 | disposition left against medical advice (07) | DRG 466 ==
LOC: ANHED 11-22 04:37 → ANHIMU 11-22 05:13
PROVIDERS: Internal Medicine; Internal Medicine Nephrology; Surgery; Urology; Admitting Provider Internal Medicine; Emergency Provider Emergency Medicine; PCP Internal Medicine Gastroenterology; Visit Provider General Practice
DX: N99.89 Other postprocedural complications and disorders of genitourinary system (principal); A41.9 Sepsis, unspecified organism; K65.2 Spontaneous bacterial peritonitis; T83.193A Other mechanical complication of other urinary stent, initial encounter; R65.20 Severe sepsis without septic shock; B96.20 Unspecified Escherichia coli [E. coli] as the cause of diseases classified elsewhere; B37.49 Other urogenital candidiasis; R18.8 Other ascites; N13.39 Other hydronephrosis; N17.0 Acute kidney failure with tubular necrosis; K52.9 Noninfective gastroenteritis and colitis, unspecified; I10 Essential (primary) hypertension; J96.01 Acute respiratory failure with hypoxia; J44.9 Chronic obstructive pulmonary disease, unspecified; E87.5 Hyperkalemia; I95.9 Hypotension, unspecified; K21.9 Gastro-esophageal reflux disease without esophagitis; E87.6 Hypokalemia; E87.21 Acute metabolic acidosis; B19.20 Unspecified viral hepatitis C without hepatic coma; F19.10 Other psychoactive substance abuse, uncomplicated; F17.210 Nicotine dependence, cigarettes, uncomplicated; Z85.51 Personal history of malignant neoplasm of bladder; Z85.038 Personal history of other malignant neoplasm of large intestine; Z93.6 Other artificial openings of urinary tract status
CPT/HCPCS: 36415; 49083; 50432; 71045; 74019; 74420; 75989; 76700; 80053; 80069; 80202; 80307; 81001; 82140; 82565; 82570; 83605; 83735; 84100; 84145; 84156; 85025; 85027; 85610; 85730; 86703; 86704; 86705; 86706; 87040; 87070; 87075; 87086; 87088; 87106; 87186; 87205; 87340; 87493; 87637; 89051; 93005; 93306; 94640; 96361; 96365; 96366; 96367; 96372; 96375; 97110; 97161; 97165; 97530; 99285; A9270; C1729; C1769; G0378; G0379; G0432; J0692; J0696; J1450; J1644; J1836; J2060; J3370; J3410; J7030; J7070; P9047